=== PATIENT | female | born 1980 | race Caucasian/White ===

== ENCOUNTER → 2019-05-07 16:52 | Outpatient (CLI) | payer MEDICAID, SELFPAY ==
[2019-05-07 17:25] LABS: Basophils # 0.1 K/mm3 (0-0.2); Basophils % 0.7 % (0.1-2.0); Eosinophils # 0.2 K/mm3 (0.0-0.4); Eosinophils % 2.1 % (0.1-12.0); Hematocrit 35.5 % (37.0-47.0); Hemoglobin 10.4 g/dL (12.2-16.2); Lymphocytes # 2.2 K/mm3 (0.7-4.5); Mean Corpuscular HGB Conc 29.2 g/dL (31.8-35.4); Mean Corpuscular Volume 71.9 fl (81-99); Monocytes # 0.4 K/mm3 (0.1-1.0); Monocytes % 4.3 % (1.7-9.3); Neutrophils # 5.7 K/mm3 (1.8-7.8); Neutrophils % 66.9 % (37.0-80.0); Platelet Count 539 K/mm3 (142-424); Red Blood Count 4.94 M/mm3 (4.20-5.40); Red Cell Distribution Width 16.7 % (11.5-17.5); White Blood Count 8.5 K/mm3 (4.8-10.8)
[2019-05-07 17:58] LABS: Chloride 105 mmol/L (98-107)
[2019-05-07 17:59] LABS: Potassium 4.5 mmoL/L (3.5-5.1); Sodium 138 mmol/L (136-145)
[2019-05-07 18:01] LABS: Alanine Aminotransferase 23 U/L (12-78); Alkaline Phosphatase 99 U/L (38-126); Anion Gap 11.5 mEq/L (5-15); Aspartate Amino Transferase 33 U/L (14-36); Bilirubin,Total 0.3 mg/dl (0.2-1.3); Blood Urea Nitrogen 11 mg/dl (7-17); Carbon Dioxide 26 mmol/L (22.0-30.0); Cholesterol 118 mg/dl (140-200); Estimated Glomerular Filt Rate 112 ml/min (>60); GFR (African American) 136 ML/MIN (>60); Triglycerides 121 mg/dl (30-150); VLDL Cholesterol 24 mg/dL (0-40)
[2019-05-07 18:02] LABS: Albumin/Globulin Ratio 1.2 (1.1-1.8); Calcium 9.3 mg/dl (8.4-10.2); Chol/HDL Ratio 2.3 (1-3.5); Globulin 3.3 g/dL (1.3-3.2); Glucose 88 mg/dl (74-100); HDL Cholesterol 51 mg/dl (40-60); Total Protein,Serum 7.3 g/dl (6.3-8.2)
[2019-05-07 18:13] LABS: Direct LDL Cholesterol 47.57 mg/dL (100-129)
[2019-05-07 18:19] LABS: T4 (Thyroxine) 11.4 ug/dl (5.53-11.0)
[2019-05-07 18:33] LABS: Thyroid Stimulating Hormone < 0.02 uIU/mL (0.465-4.68)
[2019-05-10 14:29] LABS: Vitamin D 25 Hydroxy 20.5 ng/mL (30.0-100.0)
== END ==
PROVIDERS: Visit Provider Nurse Practitioner Family
DX: M79.89 Other specified soft tissue disorders (principal); M79.605 Pain in left leg; M79.604 Pain in right leg; E55.9 Vitamin D deficiency, unspecified; R94.6 Abnormal results of thyroid function studies
CPT/HCPCS: 80053; 80061; 82652; 84436; 84443; 85025

== ENCOUNTER → 2019-06-08 16:56 | Outpatient (CLI) | payer OTHER, SELFPAY ==
[2019-06-08 18:51] LABS: T4 (Thyroxine) 9.1 ug/dl (5.53-11.0)
[2019-06-08 19:04] LABS: Thyroid Stimulating Hormone 0.03 uIU/mL (0.465-4.68)
== END ==
PROVIDERS: Visit Provider Nurse Practitioner Family
DX: R79.89 Other specified abnormal findings of blood chemistry (principal)
CPT/HCPCS: 84436; 84443

== ENCOUNTER → 2019-06-18 10:15 | Outpatient (CLI) | payer OTHER, SELFPAY ==
--- NOTE | 2019-06-18 10:16 | CA_ITS ---
APPROVED REPORT EXAM: Comprehensive 2D, Doppler, and color-flow Echocardiogram Signal Operator Linguist: Rhea Samaniego CRT Ht: 5 ft 9 in Wt: 354lbs BSA: 2.63 BP: 156/97 mmHg Indications: edema,, sob, smoker, htn, 2D Dimensions LVOT 1.87 cm (M/F) 1.5-2.5 M-Mode Dimensions RVDd 3.20 cm (0.9-2.6) LVDd 6.12 cm (3.5-5.7) LVDs 4.59 cm (3.5-5.7) IVSd 0.64 cm (0.6-1.1) PWd 0.78 cm (0.6-1.1) EF (Teich) 48.60% FS 25.00% EDV (Teich) 188.30 mL ESV (Teich) 96.80 mL LV Diastology E/A Ratio 1.32 Aortic Valve LVOT Max 127.00 (70-110 cm/s) LVOT VTI 33.36 cm Mitral Valve MV A Velocity 74.00 (40-130 cm/s) Left Ventricle Left atrium is mildly enlarged, left ventricle is normal size, there is mild qualitative concentric left ventricular hypertrophy, visually estimated ejection fraction 55% with no regional wall motion abnormality, diastolic parameters are inconclusive. Right Ventricle Right atrium and right ventricular mildly enlarged with normal contractility. Aortic Valve Aortic valve is minimally thickened and fibrosed, there is no aortic stenosis, there is mild aortic insufficiency. Mitral Valve Mitral valve is grossly normal, there is mild mitral regurgitation. Tricuspid Valve Tricuspid valve is grossly normal, there is mild tricuspid regurgitation, calculated right ventricular systolic pressure is 42 mmHg. Pulmonic Valve Pulmonic valve is poorly visualized. Great Vessels Aortic root is normal size. Pericardium No significant pericardial effusion noted. Conclusion 1. Technically difficult study because of the patient fact in poor acoustic windows 2. Mild mitral enlargement, normal left ventricular size, mild concentric left ventricular hypertrophy, visually estimated ejection fraction 55% with no regional wall motion abnormality, diastolic parameters are inconclusive. 3. Mildly enlarged right ventricle with normal contractility. 4. Mild mitral and tricuspid regurgitation, calculated right ventricular systolic pressure is 42 mmHg, inferior vena cava is not well-visualized. 5. No significant pericardial effusion noted. Electronically signed by : Mario Ruiz, 06/18/2019 12:05:22
--- NOTE | 2019-06-18 11:25 | US_ITS ---
PROCEDURE: US KIDNEY CLINICAL INDICATION: Pain, edema COMPARISON: No exams were available for comparison FINDINGS: The right kidney is [id number]. No hydronephrosis, cortical thinning, or renal mass or perinephric fluid collection is evident. The left kidney is [id number]. No hydronephrosis, cortical thinning, or renal mass or perinephric fluid collection is evident. Study is somewhat limited secondary to patient's body habitus. There is mild splenomegaly at 15 cm IMPRESSION: Unremarkable bilateral renal ultrasound. Splenomegaly Dictated by: Dannie Eller MD 06/18/2019 12:40 Electronically signed by Dannie Eller MD in [place] 06/18/2019 12:40
== END ==
PROVIDERS: PCP Nurse Practitioner Family; Visit Provider Nurse Practitioner Family
DX: M79.89 Other specified soft tissue disorders (principal); R60.9 Edema, unspecified
CPT/HCPCS: 76770; 93306

== ENCOUNTER → 2019-07-09 13:20 | Outpatient (CLI) | payer OTHER, SELFPAY | PROVIDERS: PCP Nurse Practitioner Family; Visit Provider Urology | DX: G47.33 Obstructive sleep apnea (adult) (pediatric) (principal); R40.0 Somnolence; R06.83 Snoring | CPT/HCPCS: 95806 ==

== ENCOUNTER 2020-10-21 13:37 | Emergency (ER) | payer OTHER, SELFPAY ==
[2020-10-21 15:15] VITALS: BP 150/93; PULSE 83; RESP 18; TEMP 36.9; O2SAT 96; BMI 44.3
--- NOTE | 2020-10-21 15:55 | HMH.EDUTC ---
[facility] [place] Disposition Clinical Impression: Bronchitis Sinusitis Qualifiers: Sinusitis location: unspecified location Chronicity: unspecified Qualified Code(s): J32.9 - Chronic sinusitis, unspecified Disposition: Home, Self-Care Condition on Discharge: Good Instructions: Sinusitis, DI for Sinusitis, Azithromycin, DI for COVID-19 (Suspected or Confirmed ), Preventing the Spread of Coronavirus Discharge Instructions Additional Instructions: ? Start antibiotic. Be sure to complete entire prescription even if feeling better ? Monitor temp. Tylenol every 4 hours as needed and / or ibuprofen every 6 hours as needed ( As long as your primary care physician has told you that it ok to take both. For fever/aches/pains ER if no less than 101 despite Tylenol or Motrin ? Humidifier/vaporizer or hot steamy shower ? Inhaler every 4-6 hours as needed like we discussed. If unsure how to use it, ask pharmacist to demonstrate how. Should help open airways and improve cough, wheezing, and shortness of breath ?*Tessalon Perles will not cause drowsiness but use at bedtime to help stop cough so that you may get some rest. *Start steroid tomorrow. Helps with inflammation therefore, cough and wheezing. Follow directions on the package. Reviewed side effects. Patient reports taking them before. Follow up IMMEDIATELY for new or worsening of symptoms OR no noticeable improvement over the next 48-72 hours. 911 immediately for any life threatening symptoms such as chest pain or difficulty breathing You were tested for today for COVID19 your test result should be back in the next 24-48 hours, You was given written instructions for [facility] portal you can see your results there when they come back you may check it often to see if they are done You was given a handout with instructions for Self Quarantine and Self isolation for while you wait on test results and what to do if they are positive If you are positive the Health Dept will be contacting you also Make sure to take your Vitamins Vit. C Vit D and Zinc if you can take them Prescriptions: Albuterol Sulfate [Proventil-HFA 90mcg/puff Inh] 1 - 2 puffs IH Q4HP PRN #1 each PRN Reason: Shortness Of Breath Transmission Status: Received by [facility] predniSONE [Deltasone 10mg tablet] 10 mg PO BID 5 Days #10 tab Transmission Status: Received by [facility] Benzonatate [Tessalon Perle 100mg Cap*] 100 mg PO TID PRN #15 cap PRN Reason: Cough Transmission Status: Received by [facility] Azithromycin [Z-Yash 250mg Tab] 250 mg PO DIRECTED #6 tab Transmission Status: Received by [facility] Referrals: Francisco Ramírez MD [Primary Care Provider] - Forms: Work/School Release Medical Decision Making - Kenneth Inquiry Pt receiving controlled substance: No Kenneth was queried for this patient: No Vital Signs: 10/21/20 15:15 10/21/20 16:15 Temperature 98.4 F 98.4 F Temperature Source Oral Pulse Rate 83 Pulse Rate [Right Brachial] 83 Respiratory Rate 18 18 Blood Pressure 150/93 H Blood Pressure [Right Arm] 150/93 H Blood Pressure Mean [Right Arm] 112 Blood Pressure Source [Right Arm] Automatic Cuff Blood Pressure Position [Right Arm] Sitting 02 Sat by Pulse Oximetry 96 Oxygen Delivery Method Room Air Orders (Tests/Meds): ED MEDICATIONS Discontinued Medications Generic Name Dose Route Start Last Admin Trade Name Freq PRN Reason Stop Dose Admin Ceftriaxone Sodium 1 gm 10/21/20 16:02 10/21/20 16:10 Ceftriaxone 1gm Vial IM 10/21/20 16:03 1 gm ONCE ONE Administration Lidocaine HCl 0 ml 10/21/20 16:02 10/21/20 16:10 Lidocaine 1% 5ml Pf Vial IM 10/21/20 16:03 2.1 ml ONCE ONE Administration Methylprednisolone Sodium Succinate 125 mg 10/21/20 16:02 10/21/20 16:10 Methylprednisolone Sod Succ 125mg Vial IM 10/21/20 16:03 125 mg ONCE ONE Administration ORDERS Category Date Time Status Co
[2020-10-21 16:15] VITALS: BP 150/93; PULSE 83; RESP 18; TEMP 36.9; O2SAT 96
== END 2020-10-21 16:21 | disposition home or self-care (01) ==
PROVIDERS: Emergency Provider Nurse Practitioner; PCP Emergency Medicine
DX: J20.9 Acute bronchitis, unspecified (principal); J32.9 Chronic sinusitis, unspecified; Z20.822 Contact with and (suspected) exposure to COVID-19; I10 Essential (primary) hypertension; F17.210 Nicotine dependence, cigarettes, uncomplicated; Z88.5 Allergy status to narcotic agent; Z79.899 Other long term (current) drug therapy
CPT/HCPCS: 96372; 99202; G0463; U0003

== ENCOUNTER 2021-02-06 21:27 | Emergency (ER) | payer OTHER, SELFPAY ==
[2021-02-06 21:30] VITALS: BP 154/82; PULSE 98; RESP 18; TEMP 38; O2SAT 97; BMI 48.1
--- NOTE | 2021-02-06 22:00 | XR_ITS ---
PROCEDURE INFORMATION: Exam: XR Chest Exam date and time: 02/06/2021 10:00 PM Age: 40 years old Clinical indication: Cough and shortness of breath TECHNIQUE: Imaging protocol: XR of the chest. Views: 2 views. COMPARISON: CR XR CHEST 2V 05/12/2019 10:15 PM FINDINGS: Lungs: Unremarkable. No consolidation. Pleural spaces: Unremarkable. No pleural effusion. No pneumothorax. Heart/Mediastinum: Unremarkable. No cardiomegaly. Bones/joints: Unremarkable. IMPRESSION: No acute findings.
--- NOTE | 2021-02-06 22:09 | HMH.EDNVD ---
ED Disposition Clinical Impression: Acute bronchitis Qualifiers: Bronchitis organism: unspecified organism Qualified Code(s): J20.9 - Acute bronchitis, unspecified Disposition: Home, Self-Care Condition on Discharge: Good Instructions: DI for Cough -- Adult Additional Instructions: fluids and see pcp for follow up Prescriptions: Benzonatate [Benzonatate 100mg cap] 100 mg PO TID #30 cap Transmission Status: Pending to [facility] levoFLOXacin [Levaquin 500mg tab] 500 mg PO DAILY #7 tab Transmission Status: Pending to [facility] predniSONE [Prednisone 20mg Tab] 20 mg PO BID #10 tab Transmission Status: Pending to [facility] Referrals: Francisco Ramírez MD [Primary Care Provider] - - Critical Care Critical Care Time: No Attestation: On 02/06/21, the high probability of a clinically significant, sudden or life threatening deterioration of the following system(s) required my full and direct attention, intervention and personal management. The time I documented below is in addition to time spent performing reported procedures but includes the following listed in this critical care notation. Medical Decision Making - Medical Records Medical records reviewed: Yes: I reviewed the patient's medical records. - Kenneth Inquiry Pt receiving controlled substance: No Vital Signs: 02/06/21 21:30 02/06/21 22:18 Temperature 100.4 F H 98 F Temperature Source Oral Oral Pulse Rate 74 Pulse Rate [Right Brachial] 98 H Respiratory Rate 18 16 Blood Pressure 114/72 Blood Pressure [Right Arm] 154/82 H Blood Pressure Mean [Right Arm] 106 Blood Pressure Source Manual Cuff/ Doppler Blood Pressure Source [Right Arm] Manual Cuff/ Auscultation Blood Pressure Position Supine Blood Pressure Position [Right Arm] Supine 02 Sat by Pulse Oximetry 97 Oxygen Delivery Method Room Air Room Air - Lab Data Lab results reviewed: Yes: I reviewed the patient's lab results. Lab Results 02/06/21 21:45: Urine Color Yellow, Urine Appearance Clear, Urine pH 7.0, Ur Specific [place] 1.020, Urine Protein Negative, Urine Glucose (UA) Negative, Urine Ketones Negative, Urine Blood Negative, Urine Nitrate Negative, Urine Bilirubin Negative, Urine Urobilinogen 1.0, Ur Leukocyte Esterase Negative 02/06/21 21:45: WBC 6.3, RBC 5.60 H, Hgb 11.6 L, Hct 39.1, MCV 69.9 L, MCH 20.7 L, MCHC 29.7 L, RDW 16.5, Plt Count 535 H, MPV 6.9 L, Neut % (Auto) 73.1, Lymph % (Auto) 20.1, Frio % (Auto) 5.0, Eos % (Auto) 0.7, Baso % (Auto) 1.0, Neut # (Auto) 4.6, Lymph # (Auto) 1.3, Frio # (Auto) 0.3, Eos # (Auto) 0.0, Baso # (Auto) 0.1 02/06/21 21:45: Urine HCG, Qual Negative 02/06/21 21:45: Sodium 135 L, Potassium 4.0, Chloride 101, Carbon Dioxide 28, Anion Gap 10.0, BUN 8, Creatinine 0.70, Estimated Creat Clear 114, Estimated GFR 94, Est GFR ( Amer) 113, Glucose 106 H, Calcium 8.9, Total Bilirubin 0.3, AST 40 H, ALT 32, Alkaline Phosphatase 100, C-Reactive Protein 19.2 H, Total Protein 7.6, Albumin 4.2, Globulin 3.4 H, Albumin/Globulin Ratio 1.2 02/06/21 21:45: Lactate 0.7 02/06/21 21:45: SARS-CoV-2 (PCR) Not detected, Influenza A Untype (PCR) Not detected, Influenza Type B (PCR) Not detected Result diagrams: 02/06/21 21:45 02/06/21 21:45 Orders (Tests/Meds): ED MEDICATIONS Generic Name Dose Route Start Last Admin Trade Name Freq PRN Reason Stop Dose Admin Sodium Chloride 1,000 mls @ 999 mls/hr 02/06/21 22:45 02/06/21 22:39 Sod Chlor 0.9% 1000ml Bag IV 02/06/21 23:45 999 mls/hr .Q1H1M JENARO Administration Discontinued Medications Generic Name Dose Route Start Last Admin Trade Name Freq PRN Reason Stop Dose Admin Sodium Chloride 500 mls @ 999 mls/hr 02/06/21 22:00 02/06/21 23:07 Sod Chlor 0.9% 1000ml Bag IV 02/06/21 22:30 Not Given .Q31M JENARO Ketorolac Tromethamine 30 mg 02/06/21 22:44 02/06/21 22:46 Ketorolac 30mg/Ml Vial IV 02/06/21 22:45 30 mg O
[2021-02-06 22:19] LABS: Coronavirus 19, PCR Not Detected (NotDetected); Influenza A, PCR Not Detected (NotDetected); Influenza B, PCR Not Detected (NotDetected); MANUAL DIFFERENTIAL MANUAL DIFFERENTIAL (MANUAL DIFF); Microscopic, Urine URINE MICROSCOPIC (MICROSCOPIC)
[2021-02-06 22:20] LABS: Appearance,Urine CLEAR (Clear); Bilirubin,Urine Negative (Negative); Blood, Urine Negative (Negative); Color,Urine YELLOW (Yellow); Glucose,Urine (UA) Negative (Negative); Ketones,Urine Negative (Negative); Leukocyte Esterase,Urine Negative (Negative); Nitrate,Urine Negative (Negative); Protein,Urine Negative (Negative)
[2021-02-06 22:29] LABS: Basophils # 0.1 K/mm3 (0-0.2); Eosinophils % 0.7 % (0.1-12.0); Hematocrit 39.1 % (37.0-47.0); Hemoglobin 11.6 g/dL (12.2-16.2); Lymphocytes # 1.3 K/mm3 (0.7-4.5); Lymphocytes % 20.1 % (10-50); Mean Corpuscular HGB Conc 29.7 g/dL (31.8-35.4); Mean Corpuscular Hemoglobin 20.7 pg (27.0-31.2); Mean Corpuscular Volume 69.9 fl (81-99); Mean Platelet Volume 6.9 fl (7.4-10.4); Monocytes # 0.3 K/mm3 (0.1-1.0); Neutrophils # 4.6 K/mm3 (1.8-7.8); Neutrophils % 73.1 % (37.0-80.0); Platelet Count 535 K/mm3 (142-424); Red Cell Distribution Width 16.5 % (11.5-17.5); White Blood Count 6.3 K/mm3 (4.8-10.8)
[2021-02-06 22:30] LABS: Alanine Aminotransferase 32 U/L (12-78); Albumin Level 4.2 g/dl (3.5-5.0); Albumin/Globulin Ratio 1.2 (1.1-1.8); Alkaline Phosphatase 100 U/L (38-126); Aspartate Amino Transferase 40 U/L (14-36); Bilirubin,Total 0.3 mg/dl (0.2-1.3); Blood Urea Nitrogen 8 mg/dl (7-17); Calcium 8.9 mg/dl (8.4-10.2); Carbon Dioxide 28 mmol/L (22.0-30.0); Chloride 101 mmol/L (98-107); Creatinine Clearance Estimated 114 mL/min (50-200); Estimated Glomerular Filt Rate 94 ml/min (>60); GFR (African American) 113 ML/MIN (>60); Globulin 3.4 g/dL (1.3-3.2); Glucose 106 mg/dl (74-100); Lactic Acid 0.7 mmol/L (0.7-2.1); Sodium 135 mmol/L (136-145); Total Protein,Serum 7.6 g/dl (6.3-8.2)
[2021-02-06 22:35] LABS: C-Reactive Protein 19.2 mg/L (0-4); Urine Pregnancy, HCG Qual. Negative (Negative)
[2021-02-06 23:34] LABS: Bacteria,Urine Trace /lpf; Squamous Epithelial Cell,Urine Occasional #/hpf (0-5)
[2021-02-06 23:35] VITALS: BP 159/89; PULSE 74; RESP 16; TEMP 36.6; O2SAT 98
[2021-02-06 23:38] LABS: Erythrocyte Sedimentation Rate 18 mm/hr (0-20)
[2021-02-06 23:55] LABS: Eosinophils % 2 % (0-3); Lymphocytes % 20 % (10-50); Monocytes % 5 % (2-9); Neutrophils % 71 % (42-76); Total Cells Counted 100
[2021-02-06 23:56] LABS: Hypochromasia 2+; Microcytosis 2+; Platelet Estimate Normal; Stomatocytes 1+
== END 2021-02-06 23:38 | disposition home or self-care (01) ==
PROVIDERS: Emergency Provider Emergency Medicine; PCP Emergency Medicine
DX: J20.9 Acute bronchitis, unspecified (principal); I10 Essential (primary) hypertension; Z20.822 Contact with and (suspected) exposure to COVID-19; Z88.5 Allergy status to narcotic agent
CPT/HCPCS: 71046; 80053; 81001; 81025; 83605; 85007; 85014; 85018; 85048; 85049; 85651; 86140; 87040; 96365; 96372; 96375; 99282; C9803; J2405; U0003; U0005

== ENCOUNTER → 2022-01-29 15:30 | Outpatient (CLI) | payer OTHER, SELFPAY ==
[2022-01-29 17:38] LABS: Basophils # 0.1 K/mm3 (0-0.2); Basophils % 0.8 % (0.1-2.0); Eosinophils # 0.1 K/mm3 (0.0-0.4); Eosinophils % 1.5 % (0.1-12.0); Hematocrit 36.3 % (37.0-47.0); Lymphocytes # 2.2 K/mm3 (0.7-4.5); Mean Corpuscular HGB Conc 30.4 g/dL (31.8-35.4); Mean Corpuscular Hemoglobin 21.5 pg (27.0-31.2); Mean Corpuscular Volume 70.9 fl (81-99); Mean Platelet Volume 7.8 fl (7.4-10.4); Monocytes # 0.4 K/mm3 (0.1-1.0); Monocytes % 4.8 % (1.7-9.3); Neutrophils % 67.9 % (37.0-80.0); Platelet Count 541 K/mm3 (142-424); Red Blood Count 5.12 M/mm3 (4.20-5.40); White Blood Count 8.9 K/mm3 (4.8-10.8)
[2022-01-29 17:48] LABS: Alanine Aminotransferase 31 U/L (12-78); Albumin/Globulin Ratio 1.3 (1.1-1.8); Alkaline Phosphatase 119 U/L (38-126); Anion Gap 13.8 mEq/L (5-15); Aspartate Amino Transferase 34 U/L (14-36); Bilirubin,Total 0.3 mg/dl (0.2-1.3); Blood Urea Nitrogen 16 mg/dl (7-17); Calcium 9.4 mg/dl (8.4-10.2); Carbon Dioxide 26 mmol/L (22.0-30.0); Chloride 104 mmol/L (98-107); Chol/HDL Ratio 3.1 (1-3.5); Cholesterol 152 mg/dl (140-200); Estimated Glomerular Filt Rate 80 ml/min (>60); GFR (African American) 97 ML/MIN (>60); Globulin 3.2 g/dL (1.3-3.2); Glucose 99 mg/dl (74-100); HDL Cholesterol 49 mg/dl (40-60); Potassium 4.8 mmoL/L (3.5-5.1); Sodium 139 mmol/L (136-145); Total Protein,Serum 7.2 g/dl (6.3-8.2); Triglycerides 87 mg/dl (30-150); VLDL Cholesterol 17 mg/dL (0-40)
[2022-01-29 18:04] LABS: Free T4 (Free Thyroxine) 1.25 ng/dl (0.78-2.19)
[2022-01-29 18:07] LABS: 25-OH Vitamin D, Total 15.8 ng/mL (30-100)
[2022-01-29 18:19] LABS: Thyroid Stimulating Hormone 0.46 uIU/mL (0.465-4.68)
== END ==
PROVIDERS: PCP Emergency Medicine; Visit Provider Emergency Medicine
DX: R06.00 Dyspnea, unspecified (principal); E55.9 Vitamin D deficiency, unspecified; Z79.899 Other long term (current) drug therapy
CPT/HCPCS: 80053; 80061; 82306; 84439; 84443; 85025

== ENCOUNTER 2023-12-31 14:23 | Outpatient (CLI) | payer OTHER, SELFPAY ==
[2023-12-31 18:56] LABS: Basophils # 0.1 K/mm3 (0-0.2); Basophils % 0.8 % (0.1-2.0); Eosinophils # 0.1 K/mm3 (0.0-0.4); Hematocrit 36.3 % (37.0-47.0); Hemoglobin 11.2 g/dL (12.2-16.2); Lymphocytes # 2.1 K/mm3 (0.7-4.5); Lymphocytes % 23.7 % (10-50); Mean Corpuscular HGB Conc 30.8 g/dL (31.8-35.4); Mean Corpuscular Hemoglobin 22.2 pg (27.0-31.2); Mean Platelet Volume 7.5 fl (7.4-10.4); Monocytes # 0.5 K/mm3 (0.1-1.0); Monocytes % 5.8 % (1.7-9.3); Neutrophils # 6.1 K/mm3 (1.8-7.8); Neutrophils % 68.7 % (37.0-80.0); Platelet Count 530 K/mm3 (142-424); Red Blood Count 5.04 M/mm3 (4.20-5.40); Red Cell Distribution Width 17.9 % (11.5-17.5); White Blood Count 8.9 K/mm3 (4.8-10.8)
[2023-12-31 19:15] LABS: Alanine Aminotransferase 17 U/L (12-78); Albumin Level 4.2 g/dl (3.5-5.0); Albumin/Globulin Ratio 1.3 (1.1-1.8); Alkaline Phosphatase 111 U/L (38-126); Anion Gap 12.7 mEq/L (5-15); Aspartate Amino Transferase 26 U/L (14-36); Bilirubin,Total 0.6 mg/dl (0.2-1.3); Blood Urea Nitrogen 14 mg/dl (7-17); Calcium 9.2 mg/dl (8.4-10.2); Carbon Dioxide 28 mmol/L (22.0-30.0); Chloride 104 mmol/L (98-107); Chol/HDL Ratio 1.7 (1-3.5); Cholesterol 124 mg/dl (140-200); Estimated Glomerular Filt Rate 92 ml/min (>60); GFR (African American) 112 ML/MIN (>60); Globulin 3.3 g/dL (1.3-3.2); Glucose 87 mg/dl (74-100); HDL Cholesterol 71 mg/dl (40-60); Potassium 4.7 mmoL/L (3.5-5.1); Sodium 140 mmol/L (136-145); Total Protein,Serum 7.5 g/dl (6.3-8.2); Triglycerides 66 mg/dl (30-150); VLDL Cholesterol 13 mg/dL (0-40)
[2023-12-31 19:26] LABS: Direct LDL Cholesterol 47.35 mg/dL (100-129)
[2023-12-31 19:31] LABS: 25-OH Vitamin D, Total 19.2 ng/mL (30-100)
[2023-12-31 19:40] LABS: HIV (1&2) Antibody Rapid NONREACTIVE (NONREACTIVE)
[2023-12-31 19:43] LABS: Hemoglobin A1C 5.5 % (4.0-6.0)
[2023-12-31 19:47] LABS: Thyroid Stimulating Hormone 2.42 uIU/mL (0.465-4.68)
[2024-01-02 07:24] LABS: Hepatitis B Surface Antigen Negative (Negative)
[2024-01-05 14:12] LABS: HCV Ab Reactive (Non Reactive)
== END 2023-12-31 23:59 | disposition home or self-care (01) ==
LOC: LAB.DROPOF 01-01 15:50
PROVIDERS: PCP Nurse Practitioner Family; Visit Provider Nurse Practitioner Family
DX: K52.9 Noninfective gastroenteritis and colitis, unspecified (principal); E66.9 Obesity, unspecified; I10 Essential (primary) hypertension; Z11.59 Encounter for screening for other viral diseases; R07.9 Chest pain, unspecified; R06.02 Shortness of breath; R60.9 Edema, unspecified
CPT/HCPCS: 80050; 80053; 80061; 82306; 83036; 84443; 85025; 86803; 87340; 87389

== ENCOUNTER 2024-02-12 14:30 | Outpatient (CLI) | payer OTHER, SELFPAY ==
--- NOTE | 2024-02-12 14:32 | CA_ITS ---
APPROVED REPORT EXAM: Comprehensive 2D, Doppler, and color-flow Echocardiogram Spray Maker: YUSUF Manning, RVS Ht: 5 ft 9 in Wt: 365lbs BSA: 2.67 BP: 156/110 mmHg Rhythm: Irregular Indications: Murmur, SOA, Smoker, SOA, HTN, Edema Echo Enhancing Agent Comments: TDS: limited acoustic windows due to patient factors 2D Dimensions IVSd 1.07 cm LVEF (Visual) 43.90 % PWd 1.08 cm LA Volume 86.00 mL LVDd 5.51 cm LA Volume Index 31.50 mL/m2 (M/F) 16-34 LVDs 4.45 cm Left Atrium 3.70 cm M-Mode Dimensions LA Diam 4.26 cm (1.9-4.0) LVDd 7.08 cm (3.5-5.7) LVDs 5.33 cm (3.5-5.7) EF (Teich) 47.70% EPSs 0.99 cm FS 24.70% EDV (Teich) 262.10 mL TAPSE 2.87 (<1.7) ESV (Teich) 137.10 mL LV Diastology E Decel Time 230 (160-240 msec) E/A Ratio 1.17 MED A' 8.70 cm/s LAT A' 11.10 cm/s Aortic Valve ALYCIA Index 0.56 cm2/m2 AoV Peak Gus. 243.0 (50-130 cm/s) AI PHT 504.00 ms AO Peak GR. 24.00 mmHg AO Mean GR. 13.10 (<5 mmHg) AO VTI 50.7 (18-25 cm) ALYCIA (VTI) 1.54 (2.5-4.5 cm2) Mitral Valve MV A Velocity 97.0 (40-130 cm/s) E/A Ratio 1.17 Pulmonary Valve PV Peak Velocity 101.0 (50-150 cm/s) Tricuspid Valve TR P. Velocity 308.00 cm/s RAP Estimate 10.00 mmHg RVSP 48.00 mmHg Left Ventricle Left ventricle is severely dilated. Left ventricular systolic function is mild to moderately decreased. There is normal left ventricular wall thickness. There is mild to moderate global hypokinesis present. Grade 2 diastolic dysfunction is present. LVEF is 40%. Right Ventricle Right ventricle is mildly dilated. The right ventricular systolic function is normal. Atria Left atrium is mildly dilated. The right atrium size is normal. There is no Doppler evidence of interatrial shunt. Aortic Valve The aortic valve is mildly thickened, cannot rule out bicuspid aortic valve. Mild aortic stenosis is present. Peak velocity 2.3 m/s. Mean AV gradient 13 mmHg. Max AV gradient 24 mmHg. ALYCIA by continuity equation is 1.6 cm2. Mild aortic regurgitation. Mitral Valve The mitral valve is normal in structure. No evidence of mitral valve stenosis. Mild mitral regurgitation. Tricuspid Valve Tricuspid valve is grossly normal in structure and function. Moderate tricuspid regurgitation. RVSP is 40-45 mmHg. Pulmonic Valve The pulmonary valve is normal in structure. Mild pulmonic regurgitation. Great Vessels The aortic root is normal in size. The ascending aorta is not well visualized. IVC is normal in size and collapses >50% with inspiration. Pericardium There is no pericardial effusion. Other Information Study Quality: Fair Conclusion Severely dilated LV with mild to moderate reduction in LV systolic function (LVEF 40%). Grade 2 diastolic dysfunction. Mild RV dilation with normal RV function. Biatrial dilation. Mild (possibly bicuspid AV) -Peak velocity 2.3 m/s. Mean AV gradient 13 mmHg. Max AV gradient 24 mmHg. ALYCIA by continuity equation is 1.6 cm2. Moderate TR. Mild MR, mild PI, mild AI. Elevated RVSP 40-45 mmHg. Compared to prior TTE from 2019, the reduction in LVEF and elevated AV gradients are new. Further evaluation with cardiac MRI (cardiomyopathy + AV protocol) and ischemic work-up are recommended, if clinically feasible. Electronically signed by : Janay Fisher MD 02/13/2024 12:25:49
== END 2024-02-12 23:59 | disposition home or self-care (01) ==
LOC: RT 14:31
PROVIDERS: PCP Nurse Practitioner Family; Visit Provider Nurse Practitioner Family
DX: I51.7 Cardiomegaly (principal); I34.0 Nonrheumatic mitral (valve) insufficiency; I35.1 Nonrheumatic aortic (valve) insufficiency; I36.1 Nonrheumatic tricuspid (valve) insufficiency; I37.1 Nonrheumatic pulmonary valve insufficiency; R06.02 Shortness of breath; R07.9 Chest pain, unspecified
CPT/HCPCS: 93306

== ENCOUNTER 2024-03-04 09:53 | Outpatient (CLI) | payer OTHER, SELFPAY ==
--- NOTE | 2024-03-04 09:53 | MR_ITS ---
APPROVED REPORT Set Up Mechanic: CLINICAL INDICATION HFrEF, possible aortic stenosis on TTE TECHNIQUE Image Acquisition: Cardiac magnetic resonance (CMR) was performed on Siemens Espree MRI 1.5T scanner. Software platform sequences were performed using the Siemens [employer] MR B19 platform. A set of three-plane, low-resolution, large [id number] localizers were initially acquired. Then axial, coronal, sagittal TrueFISP, as well as axial HASTE images, were obtained. These were followed by gated TrueFISP breathold cinematic sequences obtained in the short axis with 8 mm slices and 2 mm gaps, 2-chamber (vertical long axis), 3-chamber, 4-chamber (horizontal long axis). A bolus of contrast was injected intravenously with first-pass sequences obtained in the short axis and four-chamber planes. After approximately 10 minutes, a TI braid folder sequence was performed to determine the optimal TI time. Using the optimized TI time, delayed contrast enhancement segmented inversion???recovery TurboFLASH sequences were obtained in the short axis, 2-chamber, 3-chamber, and 4-chamber projections. 2D-velocity phase mapping was performed. Functional parameters were calculated by offline analysis on an independent workstation ([employer], [employer]unch). Contrast: ProHance??? (Gadoteridol) FINDINGS MORPHOLOGY AND FUNCTION Left ventricle: The left ventricle is severely dilated. The indexed left ventricular end-diastolic volume (LVEDVi) is 112 ml/m2 (reference range 57-105 ml/m2 in males, 56-96 ml/m2 in females). There is moderate reduction in global left ventricular systolic function. There is normal left ventricular wall thickness. The septum is asynchronous. LVEF is calculated at 37.3% (reference range 57-77%). Right ventricle: The right ventricle is mildly dilated. The indexed right ventricular end-diastolic volume (RVEDVi) is 102 ml/m2 (reference range 61-121 ml/m2 in males, 48-112 ml/m2 in females). There is severe reduction in right ventricular systolic function. RVEF is calculated at 23.5% (reference range 52-72% in males, 51-71% in females). Atria: The left atrium is mildly dilated. The maximum indexed left atrial volume is 42 ml/m2 (reference range 26-52 ml/m2 in males, 27-53 ml/m2 in females). The right atrium is normal in size. The maximum indexed right atrial volume is 29 ml/m2 (reference range 18-90 ml/m2). Aorta: The diameter of the aortic annulus is normal, measuring 28 mm (coronal view reference range 21-30 mm in males, 19-27 mm in females). The diameter of the aortic sinus is normal, measuring 34 mm (coronal view reference range 25-42 mm in males, 24-36 mm in females). The diameter of the sinotubular junction is normal, measuring 28 mm (coronal view reference range 18-32 mm in males, 18-28 mm in females). The diameters of the ascending and descending thoracic aorta are normal. Main pulmonary artery: The main pulmonary artery is mildly dilated, measuring 3.1 cm in diameter. Pericardium: The pericardial thickness is normal. The pericardial thickness measures 1 mm (normal < 4.0 mm). There is no pericardial effusion. VALVES The aortic valve is trileaflet. ALYCIA by 2D planimetry is > 2.5 cm2, corresponding to no anatomic evidence of aortic stenosis. Mild aortic regurgitation is present. Mild mitral regurgitation and tricuspid regurgitation are present. Systolic anterior motion of the mitral valve is not visualized. Ratio of pulmonary to systemic flow, Qp:Qs ratio = 0.9 (normal < or = 1.2, hemodynamically significant shunt > 1.5), demonstrating no evidence of hemodynamically significant shunt. TISSUE CHARACTERIZATION Resting Perfusion: Normal myocardial blood flow at rest. No evidence of resting hypoperfusion. Myocardial Fibrosis and/or edema: Normal gadolinium kinetics are present. No evidence of late gadolinium enhancement is noted, consistent with absence of myocardial scarring, infarction, or necrosis. T2-weighted imaging demonstrates no evidence of myocardial edema or inflammation. OTHER No other significant findings are noted. However, this exam is focused on the cardiac structure and function. IMPRESSION Severely dilated LV with moderate reduction in LV systolic function. LVEDVi= 112 ml/m2 and LVEF= 37.3%. Normal RV size with normal RV systolic function. RVEDVi= 102 ml/m2 and RVEF= 23.5%. LA dilation. No CMR evidence of myocardial scarring, infarction, or necrosis. No evidence of myocardial edema or inflammation. Perfusion analysis demonstrates normal blood flow at rest with no evidence of resting hypoperfusion. The aortic valve is trileaflet. ALYCIA by 2D planimetry is > 2.5 cm2, corresponding to no anatomic evidence of aortic stenosis. Mild aortic regurgitation is present. Mild mitral regurgitation and tricuspid regurgitation are present. Mild pulmonary artery dilation. Ratio of pulmonary to systemic flow, Qp:Qs ratio = 0.9 (normal < or = 1.2, hemodynamically significant shunt > 1.5), demonstrating no evidence of hemodynamically significant shunt. Overall, this CMR demonstrates reduction in biventricular systolic function, with otherwise no evidence of significant valvular disease (no hemodynamically significant aortic stenosis). No LGE evidence of infiltrative cardiomyopathy. There is no evidence of resting hypoperfusion or evidence of infarct in the study, but further evaluation for ischemia with stress imaging is recommended to conclusively rule out ischemic cardiomyopathy. If no evidence of coronary disease, the combination of biventricular ventricular dilation and moderate/severe dysfunction likely correlate with non-ischemic dilated cardiomyopathy. Evaluation for etiologies of dilated cardiomyopathy is suggested. COMPARISON None CRITICAL RESULT None COMMUNICATION Per this written report The findings of this cardiac MR were reviewed, reported, and signed by Wilman Fisher MD (Manager Of Customer Billing). Conclusion Electronically signed by : Janay Fisher MD 03/11/2024 11:14:41
[2024-03-04 10:20] LABS: Blood Urea Nitrogen 13 mg/dl (7-17); Estimated Glomerular Filt Rate 79 ml/min (>60); GFR (African American) 96 ML/MIN (>60)
[2024-03-04] MEDS: SODIUM CHLORIDE 0.9% 50ML BAG 25 ML IV (12:51)
[2024-03-04] MEDS: SODIUM CHLORIDE 0.9% 10ML SYR (RAD ONLY) 10 ML IV (12:51)
[2024-03-04] MEDS: GADOTERIDOL INJ 20ML SYRINGE 20 ML IV (12:52)
[2024-03-04] MEDS: GADOTERIDOL INJ 10ML SYRINGE 10 ML IV (12:52)
== END 2024-03-04 23:59 | disposition home or self-care (01) ==
LOC: RAD 09:53
PROVIDERS: PCP Nurse Practitioner Family; Visit Provider Nurse Practitioner Family
DX: R06.02 Shortness of breath (principal); I42.8 Other cardiomyopathies; Q23.81 Bicuspid aortic valve
CPT/HCPCS: 36415; 75561; 82565; 84520; A9576

== ENCOUNTER 2024-03-23 12:13 | Outpatient (CLI) | payer OTHER, SELFPAY ==
--- NOTE | 2024-03-23 | CA_ITS ---
APPROVED REPORT Exam: Pharmacologic Technologist: Cherise Marcus Ht: 5 ft 9 in Wt: 344 lbs BSA: 2.60 m2 HR: 77 bpm BP: 172/104 mmHg Stress Test Details Test: Lexiscan HR Resting HR: 77 bpm Max Heart Rate (APMHR): 179.249776 bpm Max HR Achieved: 100 bpm Target HR (85% APMHR): 152.494576 bpm % of APMHR: 55.87 Recovery HR: 83 bpm BP Resting BP: 172.0/104.0 mmHg Max BP: 172.0/104.0 mmHg Recovery BP: 159.0/93.0 mmHg ECG Resting ECG: Sinus rhythm with PVC Stress ECG Conclusion Symptoms: Dyspnea, Chest pressure Arrhythmias/Ectopy: Frequent PVC, PAC ST-T Changes: Less than [address] depression Conclusion: EKG portion unremarkable due to Lexiscan infusion. Blood pressure elevated prior to exam. Follow up with PCP Electronically signed by : Janay Fisher MD 03/24/2024 11:11:03
--- NOTE | 2024-03-23 12:14 | NM_ITS ---
APPROVED REPORT Exam: Nuclear Stress Test Indication: soa Patient Location: Outpatient Stress Tech: Cherise Marcus NM Tech:Suzanne Conn, PAOLAT, RT (R)(N) Ht: 5 ft 9 in Wt: 363 lbs HR: 78 bpm BP: 172/104 mmHg BSA: 2.66 m2 TID: 1.04 BMI: 53.5 History: soa Procedure: Patient received 0.4 mg of intravenous Lexiscan, resting heart rate 78 bpm, resting blood pressure 172/104 mmHg, with Lexiscan maximum heart rate achieved was 95 bpm which is 85 % of the maximum predicted heart rate and blood pressure was 152/86 mmHg. With Lexiscan, patient denied any complaint of chest pain. The patient was not able to lay on her abdomen for prone images Cardiac Stress and Resting SPECT Images: Cardiac Stress and Resting SPECT images were obtained using technetium 99m Myoview 31.5 mCi stress and 10.55 mCi at rest. Technically difficult imaging due to significant soft tissue overlap with the cardiac borders. The patient could not lie on her abdomen. Therefore, prone stress imaging could not be performed. This may affect the diagnostic of the study findings. Resting and stress imaging in supine positions demonstrate a large sized, moderate, fixed perfusion defect in the inferior LV wall. There is also a medium sized, moderate predominantly fixed perfusion defect in the basal to mid anterior LV wall, as well as a medium sized, moderate reversible perfusion defect in the basal to mid lateral LV wall. Gated imaging demonstrates moderate to severe reduction global LV systolic function. There is severe hypokinesis of the inferior, anterior, and basal lateral LV mai. LVEF is calculated at 30%. Conclusion: Technically difficult imaging due to soft tissue overlap and and availability of prone imaging. This may affect the diagnostic of the study findings. Large sized, moderate, fixed perfusion defect in the inferior LV wall. There is also a medium sized, moderate predominantly fixed perfusion defect in the basal to mid anterior LV wall, as well as a medium sized, moderate reversible perfusion defect in the basal to mid lateral LV wall. Findings are suggestive of reversible ischemia. Gated imaging demonstrates moderate to severe reduction global LV systolic function. There is severe hypokinesis of the inferior, anterior, and basal lateral LV mai. LVEF is calculated at 30%. Electronically signed by : Janay Fisher MD 03/24/2024 11:08:56
[2024-03-23] MEDS: ISOTOPE MYOVIEW (PER STUDY) 1 DOSE IV (14:05)
[2024-03-23] MEDS: SODIUM CHLORIDE 0.9% 10ML SYR (RAD ONLY) 10 ML IV ×2 (14:05)
[2024-03-23] MEDS: REGADENOSON 0.4MG/5ML SYRINGE 0.4 MG IV (14:05)
== END 2024-03-23 23:59 | disposition home or self-care (01) ==
LOC: RAD 12:14
PROVIDERS: PCP Nurse Practitioner Family; Visit Provider Nurse Practitioner Family
DX: R06.02 Shortness of breath (principal); I42.8 Other cardiomyopathies; R07.9 Chest pain, unspecified
CPT/HCPCS: 78452; 93017; 93018; A9502; J2785

== ENCOUNTER 2024-09-05 21:18 | Inpatient (IN) | payer OTHER, SELFPAY ==
--- OUTSIDE RECORDS SUMMARY | 2024-05-22 17:30 | XMS_ITS ---
Author Organization [facility] Address [address] [place] [address] Care Team Providers Care Furnace Erector Name Role Phone Jyotsna Stevens Primary Care Provider JYOTSNA STEVENS Unavailable Unavaila ble Migration, Provider Unavailable Unavailable Allergies Allergen (clinical drug ingredient) Drug/Non Drug Allergy documented on EMR Reaction Allergy Type Onset Date Status codeine Codeine hives Drug Allergy Active REASON FOR VISIT [facility] To [facility] Conversion Encounter Medications Medication SIG (Take, Route, Frequency, Duration) Notes Start Date End Date Status Ferrous Sulfate 325 (65 Fe) MG 1 tab(s) orally once a day Active buPROPion HCl ER (SR) 150 MG 1 tab(s) or ally once a day (in the morning); Duration: 30 days 07/30/2022 Active Spironolactone 50 MG 1 tab(s) orally onc e a day; Duration: 30 days 08/26/2022 Active metFORMIN HCl 500 MG 1 tab(s) orally onc e a day; Duration: 30 days 08/26/2022 Active Furosemide 20 MG 1 tab(s) orally once a day; Duration: 30 days 03/10/2023 Active Encounters Encounter Location Date Provider Diagnosis [facility] [address] [place], [place] [address] 05/22/2024 Provider Migration Plan Of Treatment No Information Progress Notes * Lian PAINTINGDOB: 3 (44 yo F)Acc No.[id number]:05/22/2024 Patient: Lian STRONG Provider: Rodo zhao Arleth :1980 A ge:44 Y S ex:Female Date:05/22/2024 Address:[address] [place] [address], [place], [id number] Pcp:Jyotsna Stevens Subjective: * Chief Complaints: * 1 . [facility] Conversion Encounter. * Medical History: * Medications: T aking Ferrous Sulfate 325 (65 Fe) MG Tablet Delayed Release 1 tab(s) orally once a day , Taking buPROPion HCl ER (SR) 150 MG Tablet Extended Release 12 Hour 1 tab(s) orally once a day (in the morning) , Taking Spironolactone 50 MG Tablet 1 tab(s) orally once a day , Taking metFORMIN HCl 500 MG Tablet 1 tab(s) orally once a day , Taking Furosemide 20 MG Tablet 1 tab(s) orally once a day * Allergies: C odeine: hives - Allergy. Objective: * Vitals: Assessment: Plan: * Treatment: * * Electronic signature of Perry moss Migration on 09/06/2024 at 04:16 PM EDT Sign off status: Pending * Provider: Rodo hernandezada Reinoso Date: 05/22/2024 Generated for Thu burnett/Naveen/Brian on: 09/06/2024 04:16 PM EDT
--- OUTSIDE RECORDS SUMMARY | 2024-05-22 17:30 | XMS_ITS ---
Author Organization [facility] Address [address] [place] [address] Care Team Providers Care Investigator Internal Affairs Name Role Phone Jyotsna Stevens Primary Care Provider JYOTSNA STEVENS Unavailable Unavaila ble Migration, Provider Unavailable Unavailable Allergies Allergen (clinical drug ingredient) Drug/Non Drug Allergy documented on EMR Reaction Allergy Type Onset Date Status codeine Codeine hives Drug Allergy Active REASON FOR VISIT [facility] Conversion Encounter Medications Medication SIG (Take, Route, [address] [place], [place] [address] 05/22/2024 Provider Migration Plan Of Treatment No Information Progress Notes * Lian PAINTINGDOB: 3 (44 yo F)Acc No.[id number]:05/22/2024 Patient: Lian STRONG Provider: Rodo zhao Arleth :1980 A ge:44 Y S ex:Female Date:05/22/2024 Address:[address] [place] [address], [place], [id number] Pcp:Jyotsna Stevens Subjective: * Chief Complaints: * [...] Electronic signature of Perry moss Migration on 09/05/2024 at 09:27 PM EDT Sign off status: Pending * Provider: Rodo hernandezada Reinoso Date: 0 05/22/2024 Generated for Thu burnett/Naveen/Brian on: 09/05/2024 09:27 PM EDT
--- NOTE | 2024-09-05 21:18 | XR_ITS ---
PROCEDURE INFORMATION: Exam: XR Chest Exam date and time: 09/05/2024 9:24 PM Age: 44 years old Clinical indication: Shortness of breath; Additional info: Cough SOA TECHNIQUE: Imaging protocol: Radiologic exam of the chest. Views: 1 view. COMPARISON: CR XR CHEST 2V 02/06/2021 10:04 PM FINDINGS: Lungs: Diffuse interstitial prominence is noted. Pleural spaces: Small pleural effusions not be excluded. Heart/Mediastinum: The heart is enlarged. Vasculature: The central pulmonary vasculature is indistinct. Bones/joints: Unremarkable. IMPRESSION: 1. Diffuse interstitial prominence may represent pulmonary edema related to CHF or atypical pneumonia. 2. Cardiomegaly. 3. Small effusions can not be excluded.
[2024-09-05] MEDS: IPRATROPIUM/ALBUTEROL 3 ML NEB 9 ML IH (21:20)
--- NOTE | 2024-09-05 21:20 | ED_ITS ---
Discharge Plan Disposition Chief Complaint: Shortness of Breath/Dyspnea Prescriptions Prescriptions: No Action lisinopril 10 mg tablet 10 mg PO DAILY Qty: 30 2RF hydrochlorothiazide 25 mg tablet 25 mg PO DAILY Qty: 30 2RF fluticasone furoate-vilanterol [Breo Ellipta] 100-25 mcg/dose blister with device 1 inh inhalation DAILY Qty: 60 3RF cholecalciferol (vitamin D3) 1,250 mcg (50,000 unit) capsule 1,250 mcg PO QWEEK Qty: 7 3RF cholecalciferol (vitamin D3) 50 mcg (2,000 unit) capsule 50 mcg PO DAILY Qty: 30 4RF ferrous fumarate 324 mg (106 mg iron) tablet See Rx Instructions .ROUTE .COMPLEX Qty: 90 0RF Dose Instruction: TAKE ONE TABLET BY MOUTH ONCE A DAY Rx Instructions: TAKE ONE TABLET BY MOUTH ONCE A DAY albuterol sulfate 90 mcg/actuation HFA aerosol inhaler See Rx Instructions .ROUTE .COMPLEX Qty: 8.5 3RF Dose Instruction: INHALE 2 PUFFS BY MOUTH EVERY 4 TO 6 HOURS NEEDED FOR SHORTNESS OF BREATH OR WHEEZING Rx Instructions: INHALE 2 PUFFS BY MOUTH EVERY 4 TO 6 HOURS NEEDED FOR SHORTNESS OF BREATH OR WHEEZING Referrals Follow up/Referrals: Jt De La Garza DO [Primary Care Provider, Internal Medicine] - See instructions Print Language Print Language: Greek Discharge ED Provider: Aditya Mora General Chief Complaint: Shortness of Breath/Dyspnea Stated Complaint: SOA Time Seen by Provider: 09/05/24 21:20 History of Present Illness HPI narrative: Patient is a 44-year-old female with past medical history of hypertension, asthma, chronic smoker, methamphetamine use who presents emergency department for evaluation of cough and shortness of breath. Onset was acute, over the last 3 days. She smoked a pack a day until 3 days ago when she developed a cough and shortness of breath generally feeling unwell. Upon EMS arrival she was saturating 86% which went up to the mid 90s on nonrebreather. Patient was given an albuterol treatment prior to arrival. She denies chest pain. No other interventions prehospital. No other acute complaints at this time. Please note that above description of symptoms, in this electronic medical record under categorization of recalled from ER triage doctor by RN are reflective of an initial nursing assessment, however, is not reflective of my full history and physical exam that was personally taken and clarified. Consequentially, this preceding description of symptoms, which may include the patient's categorized chief complaint in the EMR, do not reflect my personal clinical impression, and the ultimate description of history of present illness and patient stated complaints should be deferred to this section of the note. Unless stated otherwise or congruent with this section of the note, additional signs, symptoms, or incongruence should be interpreted as inaccurate with my clinical impression. Related Data Previous Rx's ?Medication ?Instructions ?Recorded cholecalciferol (vitamin D3) 1,250 1,250 mcg PO QWEEK #7 caps 01/06/24 mcg (50,000 unit) capsule cholecalciferol (vitamin D3) 50 50 mcg PO DAILY #30 ca ps 01/06/24 mcg (2,000 unit) capsule fluticasone furoate 100 1 inh inhalation DAILY #60 e a 04/20/24 mcg-vilanterol 25 mcg/dose inhalation powder (Breo Ellipta) hydrochlorothiazide 25 mg tablet 25 mg PO DAILY #30 ta bs 04/20/24 ferrous fumarate 324 mg (106 mg See Rx Instructions .R oute 05/28/24 iron) tablet .COMPLEX #90 tabs lisinopril 10 mg tablet 10 mg PO DAILY #30 tabs 06/11 albuterol sulfate 90 mcg/actuation See Rx Instructions .Route 07/29/24 aerosol inhaler .COMPLEX #8.5 grams Allergies Allergy/AdvReac Type Severity Reaction Status Date / Time codeine (CODEINE) Allergy Mild I-RASH Verified 07/21/24 13:14 [facility] Disclaimer: The information contained in this section may have been updated after the patient was seen, as this information can be updated by other users. Medical History Restless sleeper Daytime somnolence Snoring HTN (hypertension) History of asthma Edema Tobacco dependence syndrome Dyspnea Surgical History History of placement of ear tubes History of 2 sections History of tonsillectomy and adenoidectomy Social History (Updated 07/21/24 @ 13:26 by Yuly Dunham MA) Smoking Status: Current every day smoker tobacco type: cigarettes packs per day: 1 how long ago did patient quit smoking: one month second hand exposure: No alcohol intake: current alcohol intake frequency: holidays/special occasions only substance use type: denies use current occupational status: employed Travel in the last 8 weeks?: None housing: house caffeine: No Have you lived/traveled outside US in past 30 days?: No Contact w/someone who lives/traveled outside US past 30 days?: No Exposure to someone with infectious disease in past 14 days?: No Do you have a fever (greater than 100.4 F or 38 C)?: No Have you tested positive for COVID-19?: No Exposed to someone with COVID-19 in past 14 days?: No Do you have a sore throat?: No Do you have a cough?: No Do you have any weakness?: No Do you have any diarrhea?: No Are you experiencing any unusual bleeding?: No Do you have any muscle aches/pain?: No Do you have any abdominal pain?: No Are you experiencing loss of taste or smell?: No Other Medical History Have you received the Flu Vaccine for this season: No Have you received the Pneumonia Vaccine: No ROS Obtained: Yes Systems reviewed as appropriate & no additional complaints except as documented Physical Exam General General appearance: alert and in no apparent distress Head Head exam: atraumatic and normocephalic Eye Eye exam: Present PERRL and EOMI ENT ENT exam: Present mucous membranes moist Neck Neck exam: Present normal inspection Chest Chest inspection: Present normal inspection and symmetric chest wall rise Respiratory Respiratory exam: Present respiratory distress, wheezes and other (Tachypnea, diminished air movement on the left) Cardiovascular Cardiovascular exam: Present regular rate and normal rhythm Abdominal Exam Abdominal exam: Present soft; Absent tenderness Extremities Exam Extremities exam: Present normal inspection Neurological Exam Neurological exam: Present alert Psychiatric Psychiatric exam: Present normal affect Skin Skin exam: Present warm and dry HEART Score HEART Score HEART Score assessment performed?: Yes History (anamnesis): Slightly suspicious ECG: Non-specific disturbance Age: <45 years Risk factors: 1-2 risk factors Troponin: > 3x normal limit HEART Score: 4 Critical Care Critical Care Time Critical Care Time: Yes Attestation: On 09/05/24, the high probability of a clinically significant, sudden or life threatening deterioration of the following system(s) required my full and direct attention, intervention and personal management. The time I documented below is in addition to time spent performing reported procedures but includes the following listed in this critical care notation. Total Time Total Critical Care Time: 45 Medical Decision Making Kenneth Inquiry Pt receiving controlled substance: No Vital Signs Vital Signs: 09/05/24 21:29 09/05/24 22:30 09/05/24 22:31 Temperature 101.8 F H Temperature Source Tympanic Pulse Rate 119 H Pulse Rate [Right] 119 H Respiratory Rate 39 H Blood Pressure [Right Arm] 169/104 H Blood Pressure Mean [Right Arm] 125 02 Sat by Pulse Oximetry 91 L Oxygen Delivery Method Vapotherm Oxygen Flow Rate (LPM) 30 Fraction of Inspired Oxygen 100 Lab Data Labs: Lab Results 09/05/24 21:18: VBG pH 7.41, VBG pCO2 33.6 L, VBG pO2 36.1, VBG HCO3 20.7 L, VBG Total CO2 21.8 L, VBG O2 Saturation 65.2, VBG Base Excess -3.9 L, VBG Lactic Acid 3.3 H 09/05/24 21:19: WBC 32.4 H*, RBC 5.52 H, Hgb 10.6 L, Hct 37.7, MCV 68.3 L, MCH 19.2 L, MCHC 28.1 L, RDW 18.5 H, Plt Count 562 H, MPV 10.6 H, Neut % (Auto) 92.5 H, Lymph % (Auto) 2.8 L, [place] % (Auto) 3.2, Eos % (Auto) 0.0 L, Baso % (Auto) 0.2, Neut # (Auto) 30.0 H, Lymph # (Auto) 0.9, [place] # (Auto) 1.1 H, Eos # (Auto) 0.0, Baso # (Auto) 0.1, Total Counted 100, Neutrophils % (Manual) 90 H, L ymphocytes % (Manual) 8 L, Monocytes % (Manual) 2, Platelet Estimate Normal, RBC Morphology Normal, Sodium 129 L, Potassium 4.4, Chloride 98, Carbon Dioxide 22, Anion Gap 13.4, BUN 15, Creatinine 0.90, Estimated Creat Clear 85, Estimated GFR 69, Est GFR ( Amer) 83, Glucose 158 H, Calcium 8.9, Total Bilirubin 2.4 H , AST 123 H, ALT 86 H, Alkaline Phosphatase 99, Troponin I 0.19 H, NT-Pro-B Natriuret Pep > 43570 H, Total Protein 7.8, Albumin 4.1, Globulin 3.7 H, Albumin/Globulin Ratio 1.1 09/05/24 21:19 09/05/24 21:19 Response Orders (Tests/Meds): ED MEDICATIONS Generic Name Dose Route Start Last Admin Trade Name Freq PRN Reason Stop Dose Admin Milrinone Lactate 20 mg/ 100 mls @ 6.464 mls/hr 09/05/24 22:29 Sodium Chloride IV 10/05/24 22:28 .[id number] JENARO Protocol 0.125 MCG/KG/MIN Discontinued Medications Generic Name Dose Route Start Last Admin Trade Name Freq PRN Reason Stop Dose Admin Albuterol/Ipratropium 9 ml 09/05/24 21:18 09/05/24 21:20 Ipratropium/Albuterol 3 Ml Neb IH 09/05/24 21:19 9 ml ONCE ONE Administration Furosemide 80 mg 09/05/24 22:28 Furosemide 40mg/4ml Vial IV 09/05/24 22:29 ONCE ONE Azithromycin 500 mg/ Sodium 250 mls @ 250 mls/hr 09/05/24 21:19 09/05/24 21:44 Chloride IV 09/05/24 21:20 250 mls/hr ONCE ONE Administration Lactated Ringer's 500 mls @ 250 mls/hr 09/05/24 21:29 09/05/24 21:48 Lactated Ringer's 500ml IV 09/05/24 23:28 250 mls/hr .Q2H ONE Administration Ceftriaxone Sodium 1 gm/ 50 mls @ 100 mls/hr 09/05/24 21:54 Sodium Chloride IV 09/05/24 22:23 ONCE ONE Iopamidol 80 ml 09/05/24 22:04 09/05/24 22:07 Iopamidol-370 (76%);100ml Bottle IV 09/05/24 22:05 80 ml ONCE ONE Administration Methylprednisolone Sodium Succinate 125 mg 09/05/24 21:18 09/05/24 21:47 Methylprednisolone Sod Succ 125mg Vial IV 09/05/24 21:19 125 mg ONCE ONE Administration Sodium Chloride 50 ml 09/05/24 22:04 09/05/24 22:07 0.9 % Sodium Chloride 50 Ml Vial IV 09/05/24 22:05 50 ml ONCE ONE Administration Sodium Chloride 10 ml 09/05/24 22:04 09/05/24 22:07 Sodium Chloride 0.9% 10ml Syr (Rad Only) IV 09/05/24 22:05 10 ml ONCE ONE Administration ORDERS Category Date Time Status CT angio chest PE protocol Stat Cat Scan 09/05/24 21:53 Completed CXR --portable [XR chest portable] Stat Exams 09/05/24 21:18 Completed POCUS Point of Care (ER Only) Stat Exams 09/05/24 21:18 Taken BNP [NT Pro Brain Natriuretic Pep.] Stat Lab 09/05/24 21:19 Completed CBC w/Auto Diff [Complete Blood Count Auto Diff] Stat Lab 09/05/24 21:19 Completed CMP [Comprehensive Metabolic Panel] Stat Lab 09/05/24 21:19 Completed Full Resp Panel w/COVID ([facility]) Routine Lab 09/05/24 22:50 Received HCG,Quantitative Stat Lab 09/05/24 21:19 Received Trop I [Troponin I] Stat Lab 09/05/24 21:19 Completed Troponin I Q3H Lab 09/06/24 00:30 Ordered Troponin I Q3H Lab 09/06/24 03:30 Ordered Blood Culture Stat Micro 09/05/24 21:20 Received VBG [Venous Blood Gas] Stat RT 09/05/24 21:18 Completed EKG Request [ECG Request] Stat Y 09/05/24 21:20 Completed ECG Data Tracing #1: ECG Narrative: Independently interpreted by me rate is 117, rhythm is regular, axis is rightward deviated, no ST elevation in anatomical contiguous leads, QTc 384. MDM Narrative Medical Decision Narrative: In summary patient is a 44-year-old female past medical history described above presents emerged part for evaluation of cough and shortness of breath. Patient is hemodynamically stable in respiratory distress upon arrival, afebrile. Patient has diminished air movement on the left. She has diffuse biphasic wheezing in the setting of uncontrolled asthma and likely COPD given her smoking history. Differential also includes pneumonia and superimposed heart failure. Workup will be conducted with hematologic labs, chest x-ray, EKG, 3 DuoNebs, methylprednisolone, ceftriaxone, azithromycin. Full sepsis bolus fluids were considered but we will start with gentle crystalloid resuscitation given that her cardiac MRI shows ejection fraction of 37.3% on the left and 23.5% on the right with previous imaging and full bolus will be deferred. Nlixd-xs-[id number] ultrasound was performed at bedside and ejection fraction is approximately 20%. Given this after 50 cc of fluid crystalloid resuscitation we will stop fluid resuscitation at this time given that significant degree of heart failure is likely present. Initial hematologic labs reviewed by me significant leukocytosis of 32.4 with left shift, compensated VBG, hyponatremia with elevated troponin 0.19 proBNP undetectably high. I discussed case with Dr. Brown. We will start milrinone 0.125 and diuresis with 80 mg of Lasix. Hyponatremia is likely multifactorial including heart failure and elevated troponin will be trended as this is likely type II NSTEMI. Chest CTA diffuse interstitial prominence groundglass opacities likely representing edema with cardiomegaly and dilated pulmonary arteries 4 cm in diameter raising suspicion for pulmonary hypertension with associated pleural thickening posterior medially involving both hemithoraces. Questionable edematous changes in the upper abdominal mesenteric fat. Given this result although she has some source of infection with a fever most of her pathology is likely driving from her overt heart failure. The case was discussed with hospital medicine regarding management they will admit the patient their service for continued evaluation at this time.
[2024-09-05 21:25] LABS: VBG HCO3 20.7 mmol/L (23-30); VBG PCO2 33.6 mmol/L (35-51); VBG PH 7.41 mmol/L (7.31-7.41); VBG PO2 36.1 mmol/L (28-40)
[2024-09-05 21:26] LABS: Lactate Venous 3.3 mmol/L (0.4-2.0)
--- OUTSIDE RECORDS SUMMARY | 2024-09-05 21:27 | XMS_ITS | Clinical Summary ---
[facility] Address [address] [place] [address] Care Team Providers Care Line Service Attendant Name Role Phone Provider, No Known Primary Care Provider Unavail able Social History Tobacco Use Types Packs/Day Years Used Date Smoking Tobacco: Never Assessed Abuse Screen Answer Date Recorded Unsafe at Home or Work/School Not on file Feels Threatened by Someone? Not on file 01/2023 Does Anyone Keep You from Co ntacting Others or Doint Things Outside the Home? Not on file 11/28/2022 Physical Sign of Abuse Present Not on file 1 Housing Stability Answer Date Recorded Current Living Arrangements Not on file 11/17 Potentially Unsafe Housing Conditions Not on margaux e 11/28/2022 Family and Community Support Answer Santi e Recorded Help with Day-to-Day Activities Not on file 11/28/2022 Lonely or Isolated Not on file 11/28/2022 Employment Answer Date Recorded Do you want help finding or keeping work or a refugio b? Not on file 11/28/2022 Disabilities Answer Date Recorded Concentrating, Remembering, or Making Decisions Difficulty Not on file 11/28/2022 Doing Errands Independently Difficulty Not on fi le 11/28/2022 Education Answer Date Recorded Help with school or training? Not on file Preferred Language Not on file 11/28/2022 Comments Unknown Sex and Gender Information Value Date Recorded Sex Assigned at Not on file Legal Sex Female 12:48 PM EDT Gender Identity Not on file Sexual Orientation Not on file Plan of Treatment Health Maintenance Due Date Last Done Comments ANNUAL PHYSICAL 1980 Annual Gynecologic Pelvic an d Breast Exam 1980 HEPATITIS C SCREENING 1982 TDAP/TD VACCINES (1 - Tdap) 2001 MAMMOGRAM 2022 COVID-19 Vaccine (1 - 2024-2 5 season) 2023 INFLUENZA VACCINE 11/17/2024 Pneumococcal Vaccine 0-49 Aged Out No longer eligible based on patient's age to complete this topic Care Teams Line Service Attendant Relationship Specialty Start Date End Date Provider, [place] [address] PCP - General 08/06/19
--- OUTSIDE RECORDS SUMMARY | 2024-09-05 21:27 | XMS_ITS | Patient Health Record ---
Author Organization [facility] Address [address] [place] [address] Care Team Providers Care Master Dyer Name Role Phone Christi Stevens Primary Care Provider CHRISTI STEVENS Unavailable Unavaila ble Migration, Provider Unavailable Unavailable Allergies Allergen (clinical drug ingredient) Drug/Non Drug Allergy documented on EMR Reaction Allergy Type Onset Date Status codeine Codeine hives Drug Allergy Active Reason For Referral No Information Medications Medication SIG (Take, Route, Frequency, Duration) [...] a day; Duration: 30 days 03/10/2023 Active Social History Tobacco Use: Social History Observation Description Date Details (start date - stop date) Former Smoker NA - NA Smoking: Question Answer Notes Are you a: former smoker How long has it been since y ou last smoked? 1-3 months Additional Findings: Tobacco User Light cigarett e smoker ((1-9 cigs/day) Problems Problem Type SNOMED Code ICD Code Onset Dates Problem Status W/U Status Risk Notes Problem Tobacco use (658140574) Tobacco use (Z72.0) Active confirmed Problem Morbid obesity (779121897) Morbid obesity (E66.01) Active confirmed Problem Lymphedema (49273537) Lymphedema (I89.0) Active confirmed Problem Iron deficiency anemia (25153132) Iron deficiency anemia, unspecified iron deficiency anemia type (D50.9) Active confirmed Problem Body mass index 40+ - morbidly obese (123999486) BMI 60.0-69.9, adult (Z68.44) Active confirmed Problem Chronic sinusitis (60698013) Purulent postnasal drainage (J32.9) Active confirmed Encounters Encounter Location Date Provider Diagnosis [facility] [address] [place] [address] 05/22/2024 Provider Migration Plan Of Treatment Pending Test Test Name Order Date Physical Therapy : Lymphedema 03/25/2023 Physical Therapy : Lymphedema 08/27/2022 Insurance Providers Payer Name Payer Address Payer Phone Subscriber Number Group Number Insured Name Patient Relationship to Insured Coverage Start Date Coverage End Date [employer] [facility] [address] [address] [place] [address] [id number] Lian Painting Self - patient is the insured Medical (General) History Medical History History ICD Code Obesity CATHRYN - not treated Tobacco use Surgical History Surgery Date(Month/Year) tonsillectomy/ear tubes 1988 Hospitalization History Reason Date(Month/Year) above
[2024-09-05 21:29] VITALS: BP 169/104; PULSE 119; RESP 39; TEMP 38.8; O2SAT 91; BMI 56.1
[2024-09-05 21:42] LABS: Hematocrit 37.7 % (37.0-47.0); Hemoglobin 10.6 g/dL (12.2-16.2); Mean Corpuscular HGB Conc 28.1 g/dL (31.8-35.4); Mean Corpuscular Hemoglobin 19.2 pg (27.0-31.2); Mean Corpuscular Volume 68.3 fl (81-99); Platelet Count 562 K/mm3 (142-424); Red Blood Count 5.52 M/mm3 (4.20-5.40); Red Cell Distribution Width-SD 41.2 fL
[2024-09-05 21:43] LABS: Immature Granulocytes % 1.3 %; Nucleated Red Blood Cells % 0.2 %
[2024-09-05] MEDS: AZITHROMYCIN 500 MG in 0.9 % SODIUM CHLORIDE 250 ML 250 MG IV (21:44)
[2024-09-05 21:46] LABS: White Blood Count 32.4 K/mm3 (4.8-10.8)
[2024-09-05] MEDS: METHYLPREDNISOLONE SOD SUCC 125MG VIAL 125 MG IV (21:47)
[2024-09-05] MEDS: RINGERS SOLUTION,LACTATED 500 ML 250 ML IV (21:48)
[2024-09-05 21:52] LABS: Anion Gap 13.4 mEq/L (5-15); Blood Urea Nitrogen 15 mg/dl (7-17); Calcium 8.9 mg/dl (8.4-10.2); Carbon Dioxide 22 mmol/L (22.0-30.0); Chloride 98 mmol/L (98-107); Creatinine Clearance Estimated 85 mL/min (50-200); Creatinine,Serum 0.90 mg/dl (0.52-1.04); Estimated Glomerular Filt Rate 69 ml/min (>60); GFR (African American) 83 ML/MIN (>60); Glucose 158 mg/dl (74-100); NT Pro Brain Natriuretic Pep. > 30000 pg/mL (0-125); Potassium 4.4 mmoL/L (3.5-5.1); Sodium 129 mmol/L (136-145)
[2024-09-05 21:53] LABS: Alanine Aminotransferase 86 U/L (12-78); Albumin Level 4.1 g/dl (3.5-5.0); Albumin/Globulin Ratio 1.1 (1.1-1.8); Alkaline Phosphatase 99 U/L (38-126); Aspartate Amino Transferase 123 U/L (14-36); Bilirubin,Total 2.4 mg/dl (0.2-1.3); Globulin 3.7 g/dL (1.3-3.2); Total Protein,Serum 7.8 g/dl (6.3-8.2)
--- NOTE | 2024-09-05 21:53 | CT_ITS ---
PROCEDURE INFORMATION: Exam: CTA Chest With Contrast Exam date and time: 09/05/2024 10:05 PM Age: 44 years old Clinical indication: Cough; Additional info: Cough, SOB TECHNIQUE: Imaging protocol: Computed tomographic angiography of the chest with contrast. Exam focused on the arteries. 3D rendering (Not supervised by radiologist): MIP and/or 3D reconstructed images were created by the technologist. Radiation optimization: All CT scans at this facility use at least one of these dose optimization techniques: automated exposure control; mA and/or kV adjustment per patient size (includes targeted exams where dose is matched to clinical indication); or iterative reconstruction. Contrast material: ISO 370; Contrast volume: 80 ml; Contrast route: INTRAVENOUS (IV); COMPARISON: CR XR CHEST PORTABLE 09/05/2024 9:24 PM FINDINGS: Pulmonary arteries: The pulmonary artery is dilated measuring 4 cm in diameter. Aorta: Unremarkable. No aortic aneurysm. No aortic dissection. Lungs: There is diffuse interstitial prominence and mild ground-glass opacity throughout both lungs. There are bandlike densities within lingula likely representing atelectasis. Pleural spaces: Pleural thickening posteromedially involving both le thoraces. Heart: The heart is enlarged. Lymph nodes: Unremarkable. No enlarged lymph nodes. Intraperitoneal space: Questionable edematous changes within the upper abdominal mesenteric fat versus artifact. Bones/joints: Unremarkable. No acute fracture. Soft tissues: There is mild body wall edema. Other findings: The study is degraded by respiratory motion artifact and the patient's body habitus. IMPRESSION: 1. Diffuse interstitial prominence and mild ground-glass opacity throughout both lungs likely representing edema. 2. Cardiomegaly. 3. Dilated pulmonary artery measuring 4 cm in diameter raising the suspicion for pulmonary artery hypertension. 4. Pleural thickening posteromedially involving both le thoraces. 5. Questionable edematous changes within the upper abdominal mesenteric fat versus artifact and mild body wall edema.
[2024-09-05 21:54] LABS: Troponin I 0.19 ng/ml (0.00-0.034)
[2024-09-05] MEDS: 0.9 % SODIUM CHLORIDE 50 ML VIAL IV (22:07)
[2024-09-05] MEDS: IOPAMIDOL-370 (76%);100ML BOTTLE 80 ML IV (22:07)
[2024-09-05] MEDS: SODIUM CHLORIDE 0.9% 10ML SYR (RAD ONLY) 10 ML IV (22:07)
--- NOTE | 2024-09-05 22:16 | PC.NURSE ---
DEANGELO stopped per Dr. Mora
[2024-09-05 22:18] LABS: Total Cells Counted 100
[2024-09-05 22:20] LABS: RBC Morphology Normal
[2024-09-05 22:30] VITALS: PULSE 119
[2024-09-05 22:53] LABS: Adenovirus,PCR Not Detected (NotDetected); Chlamydophila Pneumoniae, PCR Not Detected (NotDetected); Coronavirus 19, PCR Not Detected (NotDetected); Coronovirus HKU1,PCR Not Detected (NotDetected); Influenza A, PCR Not Detected (NotDetected); Influenza AH1, 2009 Not Detected (NotDetected); Influenza AH1, PCR Not Detected (NotDetected); Influenza AH3,PCR Not Detected (NotDetected); Influenza B, PCR Not Detected (NotDetected); Mycoplasma Pneumoniae, PCR Not Detected (NotDetected); Parainfluenza 1, PCR Not Detected (NotDetected); Parainfluenza 2, PCR Not Detected (NotDetected); Parainfluenza 3, PCR Not Detected (NotDetected); Parainfluenza 4, PCR Not Detected (NotDetected)
--- NOTE | 2024-09-05 23:01 | P.HP_ITS ---
<Statement entered by Jt Goodman MD - 09/07/24 12:08> Personally evaluated patient and agree with plan of care as outlined by the STAFF [employer] DEFENSE OFFICER. History of Present Illness *Admission Date: 09/05/24 *Reason for visit:: Respiratory failure, pneumonia cardiomegaly *History of present illness: Morbidly obese female with a very large left ventricle. That has been a smoker since about age 18, comes in in respiratory distress.. Last cigarette approximately 3 days ago. . Patient is a 44-year-old female with past medical history of hypertension, asthma, chronic smoker, methamphetamine use who presents emergency department for evaluation of cough and shortness of breath. Onset was acute, over the last 3 days. She smoked a pack a day until 3 days ago when she developed a cough and shortness of breath generally feeling unwell. Upon EMS arrival she was satur ating 86% which went up to the mid 90s on nonrebreather. Patient was given an albuterol treatment prior to arrival. She denies chest pain. No other interventions prehospital. No other acute complaints at this time. I have spoken with the ER doctor and agree that the patient needs to be admitted to the intensive care unit, he has spoken with Dr. Brown and cardiology and pulmonary consult will be done. Patient will be started on milrinone has been given 80 mg of Lasix. Also noting slightly elevated troponin. I have spoken to the patient and her significant other, that she is very ill at this time we are going to do everything to bring fluid off of her clear her lungs treat any infection. That she will be in the ICU tonight. We have talked about CODE STATUS and the patient wants to remain a full code. Teaching done on need for lifestyle changes that in my opinion she would get better this time but be back within a month.. [facility] Disclaimer: The information contained in this section may have been updated after the patient was seen, as this information can be updated by other users. Medical History (Updated 09/06/24 @ 00:15 by Tyree Dominguez APRN) Peripheral vascular disease Abscess Sinusitis Erythema nodosum Bronchitis Cellulitis Tennis elbow Nausea and vomiting Acute bronchitis Gastroenteritis Cardiomegaly Restless sleeper Daytime somnolence Snoring HTN (hypertension) History of asthma Edema Tobacco dependence syndrome Dyspnea Surgical History History of placement of ear tubes History of 2 sections History of tonsillectomy and adenoidectomy Social History (Updated 07/21/24 @ 13:26 by Yuly Dunham MA) Smoking Status: Current every day smoker tobacco type: cigarettes packs per day: 1 how long ago did patient quit smoking: one month second hand exposure: No alcohol intake: current alcohol intake frequency: holidays/special occasions only substance use type: denies use current occupational status: employed Travel in the last 8 weeks?: None housing: house caffeine: No Have you lived/traveled outside [place] in past 30 days?: No Contact w/someone who lives/traveled outside US past 30 days?: No Exposure to someone with infectious disease in past 14 days?: No Do you have a fever (greater than 100.4 F or 38 C)?: No Have you tested positive for COVID-19?: No Exposed to someone with COVID-19 in past 14 days?: No Do you have a sore throat?: No Do you have a cough?: No Do you have any weakness?: No Do you have any diarrhea?: No Are you experiencing any unusual bleeding?: No Do you have any muscle aches/pain?: No Do you have any abdominal pain?: No Are you experiencing loss of taste or smell?: No Other Medical History Have you received the Flu Vaccine for this season: No Have you received the Pneumonia Vaccine: No Review of Systems Review of Systems Review of systems:: pertinent systems reviewed and negative unless documented below Review of systems (narrative): Started worsening 3 days ago quit smoking Constitutional Constitutional: Reports as per HPI, Reports anorexia, Reports fatigue and Reports weakness Eyes Eyes: Reports as per HPI ENT Ears, Nose, Mouth, and Throat: Reports as per HPI *Cardiovascular Cardiovascular: Reports as per HPI, Reports chest pain, Reports dyspnea, Reports dyspnea on exertion, Reports orthopnea and Reports paroxysmal nocturnal dyspnea *Respiratory Respiratory: Reports as per HPI, Reports dyspnea and Reports dyspnea on exertion Comments: Respiratory rate 30 or greater on oxygen *Gastrointestinal Gastrointestinal: Reports as per HPI Comments: Denies abdominal pain *Genitourinary Genitourinary: Reports as per HPI *Musculoskeletal Musculoskeletal: Reports as per HPI Comments: Patient noting over the last month that peripheral edema has gotten worse that she is gone to have weeping places on her legs actually was going to see a clinic on Friday about this Integumentary/Breasts Skin/Breast: Reports as per HPI *Neurologic Neurologic: Reports as per HPI and Reports weakness Comments: Patient denies any seizure type activity, denies any weakness unilateral Psychiatric Psychiatric: Reports as per HPI Comments: In physical distress at this time related to respiratory status but alert oriented able to answer questions well Endocrine Endocrine: Reports as per HPI and Reports fatigue Hematologic/Lymphatic Hematologic/Lymphatic: Reports as per HPI Allergic/Immunologic Allergic/Immunologic: Reports as per HPI Meds Home Medications and Allergies Home Medications ?Medication ?Instructions ?Recorded ?Confirmed ?Type cholecalciferol (vitamin D3) 1,250 1,250 mcg PO QWEEK #7 caps 01/06/24 07/21/24 Rx mcg (50,000 unit) capsule cholecalciferol (vitamin D3) 50 50 mcg PO DAILY #30 ca ps 01/06/24 07/21/24 Rx mcg (2,000 unit) capsule fluticasone furoate 100 1 inh inhalation DAILY #60 e a 04/20/24 07/21/24 Rx mcg-vilanterol 25 mcg/dose inhalation powder (Breo Ellipta) hydrochlorothiazide 25 mg tablet 25 mg PO DAILY #30 ta bs 04/20/24 07/21/24 Rx ferrous fumarate 324 mg (106 mg See Rx Instructions .R oute 05/28/24 07/21/24 Rx iron) tablet .COMPLEX #90 tabs lisinopril 10 mg tablet 10 mg PO DAILY #30 tabs 06/1107/21/24 Rx albuterol sulfate 90 mcg/actuation See Rx Instructions .Route 07/29/24 Rx aerosol inhaler .COMPLEX #8.5 grams New Prescriptions to Start Prescriptions: Allergies Allergy/AdvReac Type Severity Reaction Status Date / Time codeine (CODEINE) Allergy Mild I-RASH Verified 07/21/24 13:14 Exam Data for Last 24 hours Vital signs and Labs for Last 24 Hours: Temp Pulse Resp BP Pulse Ox O2 Del Method O2 Flow Rate 101.8 F H 119 H 39 H 169/104 H 91 L Vapotherm 30 09/05/24 21:29 09/05/24 22:30 09/05/24 21:29 09/05/24 21:29 09/05/24 21:29 09/05/24 22:31 09/05/24 22:31 FiO2 100 09/05/24 22:31 Laboratory Results - last 24 hr 09/05/24 21:18: VBG pH 7.41, VBG pCO2 33.6 L, VBG pO2 36.1, VBG HCO3 20.7 L, VBG Total CO2 21.8 L, VBG O2 Saturation 65.2, VBG Base Excess -3.9 L, VBG Lactic Acid 3.3 H 09/05/24 21:19: WBC 32.4 H*, RBC 5.52 H, Hgb 10.6 L, Hct 37.7, MCV 68.3 L, MCH 19.2 L, MCHC 28.1 L, RDW 18.5 H, Plt Count 562 H, MPV 10.6 H, Neut % (Auto) 92.5 H, Lymph % (Auto) 2.8 L, [place] % (Auto) 3.2, Eos % (Auto) 0.0 L, Baso % (Auto) 0.2, Neut # (Auto) 30.0 H, Lymph # (Auto) 0.9, [place] # (Auto) 1.1 H, Eos # (Auto) 0.0, Baso # (Auto) 0.1, Total Counted 100, Neutrophils % (Manual) 90 H, Lymphocytes % (Manual) 8 L, Monocytes % (Manual) 2, Platelet Estimate Normal, RBC Morphology Normal, Sodium 129 L, Potassium 4.4, Chloride 98, Carbon Dioxide 22, Anion Gap 13.4, BUN 15, Creatinine 0.90, Estimated Creat Clear 85, Estimated GFR 69, Est GFR ( Amer) 83, Glucose 158 H, Calcium 8.9, Total Bilirubin 2.4 H, AST 123 H, ALT 86 H, Alkaline Phosphatase 99, Troponin I 0.19 H, NT-Pro-B Natriuret Pep > 46207 H, Total Protein 7.8, Albumin 4.1, Globulin 3.7 H, Albumin/Globulin Ratio 1.1 I & O for Last 24 hours: Intake & Output 09/03/24 09/04/24 09/05/24 09/06/24 05:59 05:59 05:59 05:59 Weight 380 lb Radiology Reports for the Last 24 Hours: Diffuse interstitial prominence and mild ground-glass opacity throughout both lungs likely representing edema. 2. Cardiomegaly. 3. Dilated pulmonary artery measuring 4 cm in diameter raising the suspicion for pulmonary artery hypertension. 4. Pleural thickening posteromedially involving both le thoraces. 5. Questionable edematous changes within the upper abdominal mesenteric fat versus artifact and mild body wall edema. Narrative: White count 32,000 Constitutional Constitutional: moderate distress, morbidly obese, chronically ill appearing and cooperative *Routine HEENT Exam Head: Present normocephalic and atraumatic Eye: Present EOMI, PERRL and normal accommodation ENT: Present mucous membranes moist and oropharynx clear *Routine Neck Exam Neck: Present supple and full ROM Comments: Unable to evaluate carotid arteries Routine Chest/Breast/Axilla Exam Comments: Equal expansion bilaterally no signs of chest wall pain or injury *Routine Respiratory Exam Respiratory: Present decreased breath sounds, prolonged expiratory phase, respiratory distress and symmetric chest movement Comments: Respiratory rate anywhere from 25-32, patient able to speak in 3 word phrases *Routine Cardiovascular Exam Cardiovascular: Present tachycardia Comments: With increased respiratory rate difficult to evaluate heart sounds at this time., Noting weeping from both lower extremities, significant nonpitting edema *Routine Abdominal Exam Abdominal: Present soft and normoactive bowel sounds Comments: Patient has a very large abdomen but there was no signs of tenderness to moderate palpation *Routine Rectal Exam Rectal:: deferred *Routine Genitalia Exam Genitalia:: deferred *Routine Extremities Exam Extremities: Present full ROM, pulses intact and tenderness Comments: Both lower extremities extremely edematous H&P: Result Impressions 1. Congestive heart failure with respiratory failure. 2. Elevated white count question infection pneumonia to need to evaluate on myocarditis 3. Peripheral vascular disease with peripheral edema and weeping. 4. Tobacco abuse long-term, illicit drug use Imaging and Cardiology CT scan - chest: Status: image reviewed by me Additional comments: Diffuse interstitial prominence and mild ground-glass opacity throughout both lungs likely representing edema. 2. Cardiomegaly. 3. Dilated pulmonary artery measuring 4 cm in diameter raising the suspicion for pulmonary artery hypertension. 4. Pleural thickening posteromedially involving both le thoraces. 5. Questionable edematous changes within the upper abdominal mesenteric fat versus artifact and mild body wall edema. Assessment and Plan *Assessment and plan (1) Respiratory failure with hypoxia: Status: Acute Qualifiers: Chronicity: acute on chronic Qualified Code(s): J96.21 - Acute and chronic respiratory failure with hypoxia Category: Medical Code(s): J96.91 - Respiratory failure, unspecified with hypoxia (2) Cardiomyopathy: Status: Acute Qualifiers: Cardiomyopathy type: dilated Qualified Code(s): I42.0 - Dilated cardiomyopathy Category: Medical Code(s): I42.9 - Cardiomyopathy, unspecified (3) Dyspnea: Status: Acute Qualifiers: Dyspnea type: dyspnea on exertion Qualified Code(s): R06.00 - Dyspnea, unspecified Category: Medical Code(s): R06.00 - Dyspnea, unspecified (4) Chest pain: Status: Acute Qualifiers: Chest pain type: chest pain on breathing Qualified Code(s): R07.1 - Chest pain on breathing Category: Medical Code(s): R07.9 - Chest pain, unspecified (5) Smoking greater than 25 pack years: Status: Acute Category: Social Hx Code(s): F17.210 - Nicotine dependence, cigarettes, uncomplicated (6) Peripheral vascular disease: Status: Acute Category: Medical Code(s): I73.9 - Peripheral vascular disease, unspecified (7) Obesity: Status: Acute Qualifiers: Obesity type: unspecified obesity type Obesity classification: adult class 3 (BMI >= 40) Qualified Code(s): E66.813 - Obesity, class 3; Z68.41 - Body mass index [BMI] 40.0-44.9, adult Category: Medical Code(s): E66.9 - Obesity, unspecified (8) Tobacco dependence syndrome: Status: Chronic Category: Medical Code(s): F17.200 - Nicotine dependence, unspecified, uncomplicated Plan 1. Patient will be placed in a unit since there is a danger that she may decompensate tonight become tired out and required either BiPAP or being intubated.. Cardiology Dr. Brown contacted in the ER. Patient ordered to proceed observe and creased cardiac output. Lasix also has been given to treat for congestive heart failure 2. Respiratory status with possible pneumonia elevated white count continuing antibiotics and breathing treatment the patient has received 1 dose of steroids in the emergency room., Patient able to talk a little bit better than when she arrived. Will continue aggressive treatment. Can see the possibility patient could decompensate requiring BiPAP or intubation 3. Elevated white count. Question pneumonia on CT scan groundglass opacity but no significant accumulation of fluid. Question possibility of myocarditis, patient is known to use illegal drugs. Question infection of unknown origin are location going on in the body at this time. Antibiotics will be continued
[2024-09-05] MEDS: FUROSEMIDE 40MG/4ML VIAL 80 MG IV (23:13)
[2024-09-05] MEDS: CEFTRIAXONE 1 GM 1 GM in 0.9 % SODIUM CHLORIDE 50 ML IV (23:13)
--- NOTE | 2024-09-05 23:14 | PC.NURSE ---
Pt and family have been made aware that she is not to have anything to eat or drink at this time. she is now NPO. they have attempted many times to give her drinks and snacks and have been reminded that she cannot have anything at all. MD and nurse aware of this.
[2024-09-05 23:17] VITALS: O2SAT 97
[2024-09-05] MEDS: MILRINONE LACTATE 20 MG in 0.9 % SODIUM CHLORIDE 80 ML 6.46 MG IV (23:50)
--- NOTE | 2024-09-05 23:59 | PC.NURSE ---
Report called to KIM Diego
[2024-09-06] VITALS (109 sets, daily range): BP systolic 66–200; BP diastolic 43–147; PULSE 50–120; RESP 11–31; TEMP 36.6–38.4; O2SAT 80–100; BMI 58.1
--- NOTE | 2024-09-06 00:18 | CA_ITS ---
APPROVED REPORT EXAM: Comprehensive 2D, Doppler, and color-flow Echocardiogram Track Laying Machine Operator: Rhea Samaniego CRT Ht: 5 ft 9 in Wt: 380lbs BSA: 2.71 BP: 169/104 mmHg Indications: Congestive Heart Failure, Shortness of Breath, Cardiomyopathy, Hypertension/HDD, smoker, methamphetamine use 2D Dimensions LA Volume 54.30 mL LA Volume Index 19.50 mL/m2 (M/F) 16-34 M-Mode Dimensions RVDd 3.49 cm (0.9-2.6) LA Diam 4.06 cm (1.9-4.0) LVDd 5.70 cm (3.5-5.7) LVDs 4.42 cm (3.5-5.7) IVSd 1.97 cm (0.6-1.1) PWd 1.65 cm (0.6-1.1) EF (Teich) 44.60% FS 22.50% EDV (Teich) 160.00 mL TAPSE 3.90 (<1.7) ESV (Teich) 88.60 mL LV Diastology E Decel Time 150 (160-240 msec) E/A Ratio 1.98 MED A' 12.40 cm/s LAT A' 9.30 cm/s Aortic Valve ALYCIA Index 0.86 cm2/m2 AoV Peak Gus. 224.0 (50-130 cm/s) AO Peak GR. 20.00 mmHg AO Mean GR. 10.80 (<5 mmHg) AO VTI 35.8 (18-25 cm) ALYCIA (VTI) 2.38 (2.5-4.5 cm2) Mitral Valve MV E Max Gus. 107.0 (40-130 cm/s) MV A Velocity 54.0 (40-130 cm/s) E/A Ratio 1.98 MV PHT 44.0 ms Pulmonary Valve PV Peak Velocity 140.0 (50-150 cm/s) Tricuspid Valve TR P. Velocity 346.00 cm/s RAP Estimate 10.00 mmHg RVSP 57.90 mmHg Left Ventricle The left ventricle is normal size. The left ventricular systolic function is normal. The left ventricular ejection fraction is within the normal range. There is normal left ventricular wall thickness. There is normal LV segmental wall motion. The left ventricular diastolic function is normal. LVEF is 55%. Right Ventricle Right ventricle is mildly dilated. The right ventricular systolic function is normal. Atria Left atrium is mildly dilated. Right atrium is mildly dilated. There is no Doppler evidence of interatrial shunt. Aortic Valve The aortic valve opens well. Peak transaortic velocity 2.4 m/s. Mean AV gradient 10 mmHg. Max AV gradient 16 mmHg. Trace aortic regurgitation. Mitral Valve The mitral valve is normal in structure. No evidence of mitral valve stenosis. Trace mitral regurgitation. Tricuspid Valve Tricuspid valve is grossly normal in structure and function. Mild tricuspid regurgitation. RVSP is 40-45 mmHg. Pulmonic Valve The pulmonary valve is normal in structure. Trace pulmonic regurgitation. Great Vessels The aortic root is normal in size. IVC is normal in size and collapses >50% with inspiration. Pericardium There is no pericardial effusion. Other Information Study Quality: Fair Conclusion Normal biventricular systolic function. Mild RV dilation. Mild biatrial dilation. Elevated transaortic gradients (peak transaortic velocity 2.4 m/s. Mean AV gradient 10 mmHg. Max AV gradient 16 mmHg) in the setting of normal AV opening. Mild TR. Elevated RVSP 40-45 mmHg. In the setting of elevated transaortic gradients with otherwise normal AV opening, further outpatient evaluation with NICHOLAS may be suggested for evaluation of subaortic membrane. Electronically signed by : Janay Fisher MD 09/07/2024 00:35:46
--- NOTE | 2024-09-06 00:59 | PC.NURSE ---
Patient arrived to ICU unit via stretcher from ED @00;28
[2024-09-06 01:18] LABS: POC Glucose,Bedside 138 (70-110)
[2024-09-06 01:27] LABS: Reflex Lactic Add Lactic Reflex
--- NOTE | 2024-09-06 01:35 | PC.WOUNDNOTE ---
right leg left leg
[2024-09-06] MEDS: PIPERACILLIN/TAZO 3.375 GM in 0.9 % SODIUM CHLORIDE 50 ML IV ×5 (01:42→23:30)
[2024-09-06 01:55] LABS: Troponin I 0.22 ng/ml (0.00-0.034)
[2024-09-06] MEDS: MILRINONE LACTATE 20 MG in 0.9 % SODIUM CHLORIDE 80 ML 19.39 MG IV ×4 (03:54→21:39)
--- NOTE | 2024-09-06 03:58 | EXP.EVENT.NO ---
Problem: Patient is admitted tonight is actually put out 2 L. On the milrinone. Systolic blood pressure getting greater than 160, ICU nurse slowly decreasing milrinone exam: Patient has been sleeping well but had a period of SVT heart rate increased up to the 170s, this corrected itself now back down below 120 plan: EKG, troponin, BMP, magnesium ordered. 04:00 staff reported that patient now has a fever Tylenol and/or Toradol ordered 6:15 patient in sound asleep O2 sats are good CO2 is good, patient is totally exhausted, still awaiting a morning chest x-ray to reevaluate from previous day, replacing some fluid because of potassium replacement we will talk to next shift about maybe changing some of that to p.o.. Patient is stable at this point in time vital signs are good continues with PVCs rest of EKG looks relatively normal there is no ST Salik segment elevation or depressions
--- NOTE | 2024-09-06 04:10 | ECG_ITS ---
APPROVED REPORT Exam: Resting ECG HR:106 bpm ECG Measurements Heart Rate 106 AXES MN 162 P 65 QRSd 100 QRS 97 QT 376 T 109 QTc 438 Conclusion SINUS TACHYCARDIA WITH FREQUENT VENTRICULAR PREMATURE COMPLEXES POSSIBLE LEFT ATRIAL ENLARGEMENT [-0.1mV P-WAVE IN V1/V2] BORDERLINE RIGHT AXIS DEVIATION [QRS AXIS > 90] PATTERN CONSISTENT WITH PULMONARY DISEASE MODERATE T-WAVE ABNORMALITY, CONSIDER ANTEROLATERAL ISCHEMIA [-0.1+ mV T-WAVE IN V3-V6] ABNORMAL ECG UNCONFIRMED REPORT Electronically signed by : Loco Ames MD 09/06/2024 17:25:06
[2024-09-06] MEDS: KETOROLAC 30MG/ML VIAL 15 MG IV (04:21)
[2024-09-06] MEDS: ACETAMINOPHEN 500MG TAB 1000 MG PO (04:22)
[2024-09-06 04:24] LABS: Lactic Acid Follow Up (RFLX 1) 2.1 mmol/L (0.7-2.1)
[2024-09-06 04:27] LABS: Troponin I 0.25 ng/ml (0.00-0.034)
[2024-09-06] MEDS: IPRATROPIUM/ALBUTEROL 3 ML NEB IH ×4 (04:38→23:15)
[2024-09-06 04:42] LABS: Magnesium 1.5 mg/dl (1.6-2.3)
--- NOTE | 2024-09-06 04:52 | PC.NURSE ---
@approx 0310, Pts BP noted to increase. Milrinone titrated per MAR with no improvement noted. Provider notified. See MAR. Kristofer Isbell also notified of pts critical troponin @0450. no new orders. Pt denies CP.
[2024-09-06 05:00] LABS: Anion Gap 10.4 mEq/L (5-15); Carbon Dioxide 25 mmol/L (22.0-30.0); Chloride 98 mmol/L (98-107); Potassium 3.4 mmoL/L (3.5-5.1); Sodium 130 mmol/L (136-145)
[2024-09-06 05:01] LABS: Blood Urea Nitrogen 16 mg/dl (7-17); Calcium 8.5 mg/dl (8.4-10.2); Creatinine Clearance Estimated 92 mL/min (50-200); Creatinine,Serum 0.80 mg/dl (0.52-1.04); Estimated Glomerular Filt Rate 79 ml/min (>60); GFR (African American) 95 ML/MIN (>60); Glucose 173 mg/dl (74-100)
[2024-09-06] MEDS: MAGNESIUM SULFATE IN WATER 2 GM/50 ML PIGGYBACK IV ×2 (05:31→06:22)
[2024-09-06 05:51] LABS: Reflex Lactic (2 hrs) Add Lactic Reflex
[2024-09-06 05:57] LABS: ABG HCO3 23.5 mmhg (22.0-26.0); ABG PCO2 32.4 mmhg (35.0-45.0); ABG PH 7.48 mmol/L (7.35-7.45); ABG PO2 128.5 mmhg (80-100); ABG TCO2 24.5 mmhg (23-27)
--- NOTE | 2024-09-06 05:58 | PC.NURSE ---
Addendum entered by Brandie Bronson RN 09/06/24 06:06: no new orders at this time Original Note: Called Kristofer Isbell APRN to bedside to assess pt at this time. Pt hardly able to keep eyes open for conversation. Shallow breathing noted.
[2024-09-06 05:59] LABS: Source Right Radial
[2024-09-06 06:19] LABS: POC Glucose,Bedside 208 (70-110)
[2024-09-06 06:26] LABS: Red Blood Count 4.80 M/mm3 (4.20-5.40); White Blood Count 21.6 K/mm3 (4.8-10.8)
[2024-09-06 06:27] LABS: Hematocrit 32.6 % (37.0-47.0); Mean Corpuscular HGB Conc 29.1 g/dL (31.8-35.4); Mean Corpuscular Hemoglobin 19.8 pg (27.0-31.2); Mean Corpuscular Volume 67.9 fl (81-99); Platelet Count 489 K/mm3 (142-424); Red Cell Distribution Width-SD 40.9 fL
[2024-09-06 06:28] LABS: Immature Granulocytes % 1.1 %; Nucleated Red Blood Cells % 0 %
[2024-09-06 06:30] LABS: Anion Gap 10.3 mEq/L (5-15); Blood Urea Nitrogen 16 mg/dl (7-17); Carbon Dioxide 26 mmol/L (22.0-30.0); Chloride 101 mmol/L (98-107); Creatinine Clearance Estimated 82 mL/min (50-200); Creatinine,Serum 0.90 mg/dl (0.52-1.04); Estimated Glomerular Filt Rate 69 ml/min (>60); GFR (African American) 83 ML/MIN (>60); Potassium 3.3 mmoL/L (3.5-5.1); Sodium 134 mmol/L (136-145)
[2024-09-06 06:31] LABS: Alanine Aminotransferase 100 U/L (12-78); Albumin Level 3.3 g/dl (3.5-5.0); Albumin/Globulin Ratio 1.1 (1.1-1.8); Aspartate Amino Transferase 122 U/L (14-36); Bilirubin,Total 1.9 mg/dl (0.2-1.3); Calcium 8.7 mg/dl (8.4-10.2); Globulin 2.9 g/dL (1.3-3.2); Glucose 197 mg/dl (74-100); Total Protein,Serum 6.2 g/dl (6.3-8.2)
[2024-09-06 06:32] LABS: Alkaline Phosphatase 106 U/L (38-126)
--- NOTE | 2024-09-06 06:41 | XR_ITS ---
FINAL REPORT TECHNIQUE: Single view chest CLINICAL HISTORY: Congestive heart failure, respiratory failure COMPARISON: 09/05/2024 FINDINGS: A single view of the chest was obtained. The heart is mildly enlarged. There are stable increased bilateral markings favored to represent minimally improved edema over pneumonia. There is no pneumothorax. IMPRESSION: Findings favored to represent minimally improved edema over pneumonia. Reviewed, Interpreted and Dictated by Damian Sanchez MD Transcribed by Joselin Flores Authenticated and . [facility]
[2024-09-06 07:39] LABS: Cholesterol 59 mg/dl (140-200); Magnesium 1.6 mg/dl (1.6-2.3); Triglycerides 79 mg/dl (30-150)
[2024-09-06 07:40] LABS: HDL Cholesterol 27 mg/dl (40-60)
[2024-09-06] MEDS: humaLOG 100 UNITS/ML 10ML VIAL (SSI) SUBCUT ×4 (08:05→21:21)
[2024-09-06 08:09] LABS: Folate 11.10 ng/mL; Vitamin B12 907 pg/mL (239-931)
[2024-09-06] MEDS: SPIRONOLACTONE 25MG TABLET 25 MG PO (08:29)
[2024-09-06] MEDS: ASPIRIN 325MG TABLET 325 MG PO (08:29)
--- NOTE | 2024-09-06 08:44 | HMH.PHAINT1 ---
Pharmacy Intervention Comments: home medication list verified using list from outpatient pharmacy, pt family interview and speaking with outpatient pharmacist
[2024-09-06] MEDS: AZITHROMYCIN 500 MG in 0.9 % SODIUM CHLORIDE 250 ML 250 MG IV (08:46)
[2024-09-06] MEDS: FUROSEMIDE 100MG/10ML VIAL 80 MG IV ×2 (08:47→15:59)
[2024-09-06 08:50] LABS: Hypochromasia 2+; Total Cells Counted 100
[2024-09-06 08:52] LABS: Microcytosis 1+
[2024-09-06 09:01] LABS: Hemoglobin 9.5 g/dL (12.2-16.2)
[2024-09-06 09:45] LABS: Free T4 (Free Thyroxine) 1.47 ng/dl (0.78-2.19)
--- NOTE | 2024-09-06 09:49 | P.CONS_ITS ---
History of Present Illness History of present illness: Ms. Painting is a 44-year-old female with reported history of tobacco abuse hypertension asthma presented to the ER with worsening respiratory distress cough found to be needing new oxygen requirements and pulmonary was called for further evaluation and management. [facility] Disclaimer: The information contained in this section may have been updated after the patient was seen, as this information can be updated by other users. Medical History (Updated 09/06/24 @ 12:28 by Rosa Vanegas MD) Pulmonary embolism Elevated liver enzymes Elevated white blood cell count Pneumonia Abnormal cardiovascular stress test Non-STEMI (non-ST elevated myocardial infarction) Pulmonary edema Cardiomyopathy Acute on chronic HFrEF (heart failure with reduced ejection fraction) Peripheral vascular disease Abscess Sinusitis Erythema nodosum Bronchitis Cellulitis Tennis elbow Nausea and vomiting Acute bronchitis Gastroenteritis Cardiomegaly Restless sleeper Daytime somnolence Snoring HTN (hypertension) History of asthma Edema Tobacco dependence syndrome Dyspnea Surgical History History of placement of ear tubes History of 2 sections History of tonsillectomy and adenoidectomy Social History (Updated 09/06/24 @ 01:06 by Brandie Bronson RN) Smoking Status: Current every day smoker tobacco type: cigarettes packs per day: 1 how long ago did patient quit smoking: one month second hand exposure: No alcohol intake: former substance use type: denies use current occupational status: employed and disabled Travel in the last 8 weeks?: None housing: house caffeine: No Have you lived/traveled outside [place] in past 30 days?: No Contact w/someone who lives/traveled outside [place] past 30 days?: No Exposure to someone with infectious disease in past 14 days?: No Do you have a fever (greater than 100.4 F or 38 C)?: Yes Have you tested positive for COVID-19?: No Exposed to someone with COVID-19 in past 14 days?: No Do you have a sore throat?: No Do you have a cough?: Yes Do you have any weakness?: Yes Are you experiencing any nausea/vomitting?: No Do you have any diarrhea?: No Are you experiencing any unusual bleeding?: No Do you have any muscle aches/pain?: No Do you have any abdominal pain?: No Are you experiencing loss of taste or smell?: No Review of Systems Constitutional Constitutional: Reports fatigue and Reports weakness Eyes Eyes: Denies eye discharge, Denies dry eyes, Denies irritation and Denies itchy eyes ENT Ears, Nose, Mouth, and Throat: Denies epistaxis, Denies facial pain, Denies lip swelling and Denies throat swelling *Cardiovascular Cardiovascular: Reports dyspnea, Reports dyspnea on exertion, Reports edema and Reports leg edema *Respiratory Respiratory: Denies change in phlegm color, Reports chest congestion, Reports cough, Reports dyspnea, Reports dyspnea on exertion, Denies excessive phlegm production, Denies hemoptysis, Denies pain on inspiration, Denies pain with cough and Denies wheezing *Gastrointestinal Gastrointestinal: Denies abdominal pain, Denies belching and Denies cramping *Musculoskeletal Musculoskeletal: Reports back pain, Reports myalgias and Reports other (No small joint swelling or Pain) *Neurologic Neurologic: Reports as per HPI and Reports weakness Psychiatric Psychiatric: Denies homicidal ideation and Denies suicidal ideation Endocrine Endocrine: Reports fatigue and Denies heat intolerance Hematologic/Lymphatic Hematologic/Lymphatic: Denies easy bleeding and Denies lymphadenopathy Allergic/Immunologic Allergic/Immunologic: Denies itchy eyes, Denies lip swelling, Denies throat swelling and Denies wheezing Pulmonology Exam Inpatient Vital signs and Labs for Last 24 Hours: Temp Pulse Resp BP Pulse Ox O2 Del Method O2 Flow Rate 98.0 F 90 27 H 106/56 L 94 L Vapotherm 30 09/06/24 08:00 09/06/24 08:00 09/06/24 07:00 09/06/24 08:00 09/06/24 08:00 09/06/24 08:00 09/06/24 08:00 FiO2 50 09/06/24 07:00 Laboratory Results - last 24 hr 09/05/24 21:18: VBG pH 7.41, VBG pCO2 33.6 L, VBG pO2 36.1, VBG HCO3 20.7 L, VBG Total CO2 21.8 L, VBG O2 Saturation 65.2, VBG Base Excess -3.9 L, VBG Lactic Acid 3.3 H 09/05/24 21:19: WBC 32.4 H*, RBC 5.52 H, Hgb 10.6 L, Hct 37.7, MCV 68.3 L, MCH 19.2 L, MCHC 28.1 L, RDW 18.5 H, Plt Count 562 H, MPV 10.6 H, Neut % (Auto) 92.5 H, Lymph % (Auto) 2.8 L, [place] % (Auto) 3.2, Eos % (Auto) 0.0 L, Baso % (Auto) 0.2, Neut # (Auto) 30.0 H, Lymph # (Auto) 0.9, [place] # (Auto) 1.1 H, Eos # (Auto) 0.0, Baso # (Auto) 0.1, Total Counted 100, Neutrophils % (Manual) 90 H, L ymphocytes % (Manual) 8 L, Monocytes % (Manual) 2, Platelet Estimate Normal, RBC Morphology Normal, Sodium 129 L, Potassium 4.4, Chloride 98, Carbon Dioxide 22, Anion Gap 13.4, BUN 15, Creatinine 0.90, Estimated Creat Clear 85, Estimated GFR 69, Est GFR ( Amer) 83, Glucose 158 H, Calcium 8.9, Total Bilirubin 2.4 H , AST 123 H, ALT 86 H, Alkaline Phosphatase 99, Troponin I 0.19 H, NT-Pro-B Natriuret Pep > 47183 H, Total Protein 7.8, Albumin 4.1, Globulin 3.7 H, Albumin/Globulin Ratio 1.1, HCG, Quant < 2 09/05/24 22:50: Chlamy pneumoniae PCR Not detected, Adenovirus (PCR) Not detected, B. pertussis DNA (PCR) Not detected, Coronavirus OC43 (PCR) Not detected, Coronavirus HKU1 (PCR) Not detected, Coronavirus 229E (PCR) Not detected, SARS-CoV-2 (PCR) Not detected, Coronavirus NL63 (PCR) Not detected, Human Metapneumovir PCR Not detected, Influenza A (H1) PCR Not detected, Influ A (H1N1/09) PCR Not detected, Influenza A (H3) PCR Not detected, Influenza Type A (PCR) Not detected, Influenza Type B (PCR) Not detected, M. pneumoniae (PCR) Not detected, Parainfluenza 1 (PCR) Not detected, Parainfluenza 2 (PCR) Not detected, Parainfluenza 3 (PCR) Not detected, Parainfluenza 4 (PCR) Not detected, RSV (PCR) Not detected, Entero/Rhino (PCR) Not detected 09/06/24 01:03: Troponin I 0.22 H 09/06/24 01:07: POC Glucose 138 H 09/06/24 03:38: Sodium 130 L, Potassium 3.4 L D, Chloride 98, Carbon Dioxide 25, Anion Gap 10.4, BUN 16, Creatinine 0.80, Estimated Creat Clear 92, Estimated GFR 79, Est GFR ( Amer) 95, Glucose 173 H, Lactate 2.1, Calcium 8.5, M agnesium 1.5 L, Troponin I 0.25 H 09/06/24 05:37: WBC 21.6 H* D, RBC 4.80, Hgb 9.5 L D, Hct 32.6 L, MCV 67.9 L, M CH 19.8 L, MCHC 29.1 L, RDW 17.4, Plt Count 489 H, MPV 10.3, Neut % (Auto) 94.7 H, Lymph % (Auto) 3.1 L, [place] % (Auto) 0.9 L, Eos % (Auto) 0.0 L, Baso % (Auto) 0.2, Neut # (Auto) 20.5 H, Lymph # (Auto) 0.7, [place] # (Auto) 0.2, Eos # (Auto) 0.0, Baso # (Auto) 0.1, Total Counted 100, Neutrophils % (Manual) 97 H, L ymphocytes % (Manual) 2 L, Monocytes % (Manual) 1 L, Platelet Estimate Slight increase, Hypochromasia 2+, Microcytosis 1+, Sodium 134 L, Potassium 3.3 L, Chloride 101, Carbon Dioxide 26, Anion Gap 10.3, BUN 16, Creatinine 0.90, Estimated Creat Clear 82, Estimated GFR 69, Est GFR ( Amer) 83, Glucose 197 H, Lactate 1.9, Calcium 8.7, Magnesium 1.6, Total Bilirubin 1.9 H, AST 122 H , ALT 100 H, Alkaline Phosphatase 106, Total Protein 6.2 L, Albumin 3.3 L D, Globulin 2.9, Albumin/Globulin Ratio 1.1, Triglycerides 79, Cholesterol 59 L, L DL Cholesterol Direct < 30.0 L, VLDL Cholesterol 16, HDL Cholesterol 27 L, Cholesterol/HDL Ratio 2.2, Vitamin B12 907, Folate 11.10 09/06/24 05:46: Specimen Source Right radial, O2 % 30l 70%, ABG pH 7.48 H, ABG pCO2 32.4 L, ABG pO2 128.5 H, ABG HCO3 23.5, ABG Total CO2 24.5, ABG O2 Saturation 99, ABG Base Excess -0.1, Dannie Test Acceptable 09/06/24 06:08: POC Glucose 208 H I & O for Labs for Last 24 Hours: Intake & Output 09/03/24 09/04/24 09/05/24 09/06/24 23:59 23:59 23:59 23:59 Intake Total 62.261 / 62.261 Output Total 5800 / 5800 Balance -5737.739 / -5737.739 Weight 380 lb 392 lb 13.82 oz Constitutional: Present severe distress and morbidly obese Head: Present normocephalic and atraumatic ENT: Present normal exam, normal oropharynx and mucous membranes moist Neck: Present normal inspection and full ROM Respiratory: Present prolonged expiratory phase, respiratory distress, crackles, diminished air movement and able to speak in complete sentences Cardiac: Present S1/S2, Tachycardia and radial pulses present GI: Present soft and distention; Absent tenderness or guarding Rectal (female): Present deferred (female): Present deferred Skin: Present intact; Absent cyanosis or jaundice Neuro: Absent alert, awake or oriented x 3 Extremities: Present normal inspection; Absent clubbing or cyanosis Psychiatric: Present normal affect and cooperative Meds Home Medications and Allergies Home Medications ?Medication ?Instructions ?Recorded ?Confirmed ?Type cholecalciferol (vitamin D3) 50 50 mcg PO DAILY #30 ca ps 01/06/24 09/06/24 Rx mcg (2,000 unit) capsule hydrochlorothiazide 25 mg tablet 25 mg PO DAILY #30 ta bs 04/20/24 09/06/24 Rx lisinopril 10 mg tablet 10 mg PO DAILY #30 tabs 06/1109/06/24 Rx albuterol sulfate 90 mcg/actuation 2 puff inhalation Q 4-6H PRN 09/06/24 09/06/24 History aerosol inhaler Shortness Of Breath cholecalciferol (vitamin D3) 1,250 1,250 mcg PO WEEKLY 09/06/24 09/06/24 History mcg (50,000 unit) capsule ferrous sulfate 325 mg (65 mg 325 mg PO DAILY 09/06/24 09/06/24 History iron) tablet (FeroSul) New Prescriptions to Start Prescriptions: Allergies Allergy/AdvReac Type Severity Reaction Status Date / Time codeine (CODEINE) Allergy Mild I-RASH Verified 07/21/24 13:14 Results Laboratory Findings 09/06/24 05:37 09/06/24 05:37 ABG ABG pH 7.48 mmol/L (7.35-7.45) H 09/06/24 05:46 ABG pCO2 32.4 mmhg (35.0-45.0) L 09/06/24 05:46 ABG pO2 128.5 mmhg (80-100) H 09/06/24 05:46 ABG O2 Saturation 99 % (90-100) 09/06/24 05:46 Abnormal lab findings: Abnormal Labs 09/05/24 09/05/24 09/06/24 21:18 21:19 01:03 WBC 32.4 H* RBC 5.52 H Hgb 10.6 L Hct MCV 68.3 L MCH 19.2 L MCHC 28.1 L RDW 18.5 H Plt Count 562 H MPV 10.6 H Neut % (Auto) 92.5 H Lymph % (Auto) 2.8 L [place] % (Auto) Eos % (Auto) 0.0 L Neut # (Auto) 30.0 H [place] # (Auto) 1.1 H Neutrophils % (Manual) 90 H Lymphocytes % (Manual) 8 L Monocytes % (Manual) ABG pH ABG pCO2 ABG pO2 VBG pCO2 33.6 L VBG HCO3 20.7 L VBG Total CO2 21.8 L VBG Base Excess -3.9 L VBG Lactic Acid 3.3 H Sodium 129 L Potassium Glucose 158 H POC Glucose Magnesium Total Bilirubin 2.4 H AST 123 H ALT 86 H Troponin I 0.19 H 0.22 H NT-Pro-B Natriuret Pep > 69745 H Total Protein Albumin Globulin 3.7 H Cholesterol LDL Cholesterol Direct HDL Cholesterol 09/06/24 09/06/24 09/06/24 01:07 03:38 05:37 WBC 21.6 H* D RBC Hgb 9.5 L D Hct 32.6 L MCV 67.9 L MCH 19.8 L MCHC 29.1 L RDW Plt Count 489 H MPV Neut % (Auto) 94.7 H Lymph % (Auto) 3.1 L [place] % (Auto) 0.9 L Eos % (Auto) 0.0 L Neut # (Auto) 20.5 H [place] # (Auto) Neutrophils % (Manual) 97 H Lymphocytes % (Manual) 2 L Monocytes % (Manual) 1 L ABG pH ABG pCO2 ABG pO2 VBG pCO2 VBG HCO3 VBG Total CO2 VBG Base Excess VBG Lactic Acid Sodium 130 L 134 L Potassium 3.4 L D 3.3 L Glucose 173 H 197 H POC Glucose 138 H Magnesium 1.5 L Total Bilirubin 1.9 H AST 122 H ALT 100 H Troponin I 0.25 H NT-Pro-B Natriuret Pep Total Protein 6.2 L Albumin 3.3 L D Globulin Cholesterol 59 L LDL Cholesterol Direct < 30.0 L HDL Cholesterol 27 L 09/06/24 09/06/24 05:46 06:08 WBC RBC Hgb Hct MCV MCH MCHC RDW Plt Count MPV Neut % (Auto) Lymph % (Auto) [place] % (Auto) Eos % (Auto) Neut # (Auto) [place] # (Auto) Neutrophils % (Manual) Lymphocytes % (Manual) Monocytes % (Manual) ABG pH 7.48 H ABG pCO2 32.4 L ABG pO2 128.5 H VBG pCO2 VBG HCO3 VBG Total CO2 VBG Base Excess VBG Lactic Acid Sodium Potassium Glucose POC Glucose 208 H Magnesium Total Bilirubin AST ALT Troponin I NT-Pro-B Natriuret Pep Total Protein Albumin Globulin Cholesterol LDL Cholesterol Direct HDL Cholesterol Assessment and Plan *Assessment and plan (1) Pulmonary edema: Status: Acute Qualifiers: Chronicity: acute Qualified Code(s): J81.0 - Acute pulmonary edema Category: Medical Code(s): J81.1 - Chronic pulmonary edema (2) Acute hypoxic respiratory failure: Status: Acute Category: Medical Code(s): J96.01 - Acute respiratory failure with hypoxia (3) Pulmonary embolism: Status: Acute Category: Medical Code(s): I26.99 - Other pulmonary embolism without acute cor pulmonale Plan Ms. Painting is a 44-year-old female with reported history of tobacco abuse hypertension asthma presented to the ER with worsening respiratory distress cough found to be needing new oxygen requirements and pulmonary was called for further evaluation and management. Current smoker greater than [id number] smoking history not using any oxygen supplementation at baseline. Low-grade fevers at 101.8. Neutrophilic predominant leukocytosis upon admission. Comprehensive respiratory viral PCR panel negative Blood gas upon admission did not show any hypoxic/hypercarbic respiratory failure, arterial, pH of 7.48 and pCO2 32.4 and a PO2 128.5 CT chest upon admission bilateral groundglass opacity and septal thickening concerning for volume overload/pulmonary edema. Dilated right ventricle. Concern for right lower lobe segmental/subsegmental pulmonary embolism. Currently on milrinone and Zosyn. Plan: F/U VBG Continue oxygen supplementation to maintain O2 saturation of 90% and above, wean to 25 L 35%, continue to wean as tolerated Initiate full dose anticoagulation for right lower lobe subsegmental pulmonary embolism. Case discussed with [facility] Dr. Sanchez. Awaiting final over read by FRANCISCA Rader every 6 hours scheduled basis Evaluate for further possible sources of her sepsis at this point of time given CT did not show any evidence of consolidative/airspace changes. Antibiotic management as per primary team. Volume optimization as per primary team and cardiology. # Thank you for involving pulmonary in this patient care. Will continue to follow.
[2024-09-06 09:53] LABS: Ferritin 12.9 ng/ml (6.24-137); Iron 22 ug/dL (37-170); Thyroid Stimulating Hormone 0.24 uIU/mL (0.465-4.68); Total Iron Binding Capacity 373 ug/dL (265-497)
[2024-09-06 09:59] LABS: Microscopic, Urine URINE MICROSCOPIC (MICROSCOPIC)
--- NOTE | 2024-09-06 10:04 | CA_ITS ---
FINAL REPORT CLINICAL HISTORY: edema bilateral lower extremities, pneumonia/sepsis, SOB, PE, morbid obesity COMPARISON: None FINDINGS: Multiple transverse and longitudinal scans were performed of the femoral popliteal deep venous system, with augmentation and compression maneuvers. Normal phasic flow was noted in the visualized deep venous system. No intraluminal increased echogenicity is noted to suggest thrombus. There is normal compression and augmentation of the venous structures. No abnormal venous collaterals are seen. Examination of the calves is slightly limited secondary to patient's size. IMPRESSION: No evidence of deep venous thrombosis of the bilateral lower extremities. Reviewed, Interpreted and Dictated by Damian Sanchez MD Transcribed by Alberta Chase Authenticated and [facility]
[2024-09-06 10:07] LABS: Bilirubin,Urine Negative (Negative); Color,Urine YELLOW (Yellow); Glucose,Urine (UA) Negative (Negative); Ketones,Urine Negative (Negative); Leukocyte Esterase,Urine Negative (Negative); PH,Urine 5.5 (5.0-8.5); Protein,Urine Negative (Negative); Specific Gravity, Urine 1.010 (1.005-1.030); Urobilinogen,Urine 0.2 EU/dl (0.2)
--- NOTE | 2024-09-06 10:18 | HMH.PTWOUND ---
Rehab Inpt Wound Evaluation Rehab IP Wound Evaluation Start: 09/06/24 04:26 Freq: ONCE Status: Active Protocol: Document 09/06/24 10:03 JAKE (Rec: 09/06/24 10:18 JAKE [id number]) Rehab PT Wound Assessment Subjective Subjective 44-year-old female with past medical history of hypertension, asthma, chronic smoker, methamphetamine use who presents emergency department for evaluation of cough and shortness of breath. Onset was acute, over the last 3 days. She smoked a pack a day until 3 days ago when she developed a cough and shortness of breath generally feeling unwell. Upon EMS arrival she was saturating 86% which went up to the mid 90s on nonrebreather. Patient was given an albuterol treatment prior to arrival. She denies chest pain. No other interventions prehospital. No other acute complaints at this time. Pt presented upon admission with multiple small wounds to B lower legs. Wound Left Anterior [place] Wound Type Stasis Ulcer Is This a Chronic Yes Wound Wound Length (cm) 1.0 Wound Width (cm) 1.0 Wound Depth (cm) 0.1 Wound Bed Appearance [place] Surrounding Tissue Bright Red Appearance Edema Type Pitting Edema Degree 1+ Query Text:1+ Trace, Barely Detectable, Rebound 15-30 seconds 2+ Moderate, Slight Indentation, Rebound 10-20 seconds 3+ Deep, Deeper Indentation, Rebound > 30 seconds 4+ Very Deep, Rebound > 60 seconds Edema Appearance Puffy Wound Drainage Serous Description Drainage Amount Scant Dressing Change Tolerated Well Patient Tolerance Plan/Recommendation Comment ~5 other wounds of similar or smaller size noted between anterior B lower legs at this time with moderate erythema noted. No current need for debridement and wounds have very little serous drainage at this time. [place] [facility] [place] and consensus is to allow wounds to remain uncovered or lightly covered with non-adherent dressing unless drainage increases. Eval Complexity Eval Charge Codes 45526 - Moderate Complexity PHYSICIAN CERTIFICATION: I certify the specified therapy services for Lian Painting are required, authorized, and reviewed every 30 days.
[2024-09-06 10:32] LABS: Bacteria,Urine Trace /lpf; Hyaline Casts,Urine OCC #/lpf (0); RBC,Urine Occasional #/hpf (0-3); WBC,Urine Occasional #/hpf (0-3)
--- NOTE | 2024-09-06 10:43 | EXP.CARD.CON ---
History of Present Illness History of Present Illness Consult date: 09/06/24 Requesting physician: Jt Goodman Consult reason: shortness of breath Chief complaint: SOB History of present illness: This is a 44-year-old white female presented to the emergency department with complaints of shortness of breath. The patient states that she has been having swelling in her bilateral lower extremity for months and then started feeling short of breath approximately 3 days prior to admission. She states that the shortness of breath got severe and she just did not feel good. Her shortness of breath is associated with a nonproductive cough. She was very weak and fatigued and that her whole entire body just ache. She has a past medical history of hypertension, asthma, chronic smoker, history of methamphetamine user and abnormal cardiac testing at the beginning of the year. The patient had never made it to any of her cardiology appointments to follow-up on these abnormal cardiac tests. Upon arrival to the emergency department she was satting 86% on a nonrebreather. Bedside echocardiogram showed an ejection fraction of 20%. Previous EF was around 40% on echocardiogram and cardiac MRI at the beginning of the year. She also has an abnormal stress test from the beginning of the year for which she never followed up on. The patient was started on IV Lasix and milrinone. She has a -5 L overnight. She is still complaining of shortness of breath and seems pretty lethargic today. She denies any chest pain or pressure. She denies any chills, nausea, vomiting, diarrhea. She does have orthopnea associated with her shortness of breath. The patient's BNP is greater than 30,000 and her troponin is elevated consistent with a non-STEMI. She has elevated liver enzymes which is most likely from hepatic congestion. The patient has an elevated white blood cell count and had fevers through the night. She is currently being treated for with IV antibiotics. [facility] Disclaimer: The information contained in this section may have been updated after the patient was seen, as this information can be updated by other users. Medical History (Updated 09/06/24 @ 12:28 by Rosa Vanegas MD) Pulmonary embolism Elevated liver enzymes Elevated white blood cell count Pneumonia Abnormal cardiovascular stress test Non-STEMI (non-ST elevated myocardial infarction) Pulmonary edema Cardiomyopathy Acute on chronic HFrEF (heart failure with reduced ejection fraction) Peripheral vascular disease Abscess Sinusitis Erythema nodosum Bronchitis Cellulitis Tennis elbow Nausea and vomiting Acute bronchitis Gastroenteritis Cardiomegaly Restless sleeper Daytime somnolence Snoring HTN (hypertension) History of asthma Edema Tobacco dependence syndrome Dyspnea Surgical History History of placement of ear tubes History of 2 sections History of tonsillectomy and adenoidectomy Social History (Updated 09/06/24 @ 01:06 by Brandie Bronson RN) Smoking Status: Current every day smoker tobacco type: cigarettes packs per day: 1 how long ago did patient quit smoking: one month second hand exposure: No alcohol intake: former substance use type: denies use current occupational status: employed and disabled Travel in the last 8 weeks?: None housing: house caffeine: No Have you lived/traveled outside [place] in past 30 days?: No Contact w/someone who lives/traveled outside [place] past 30 days?: No Exposure to someone with infectious disease in past 14 days?: No Do you have a fever (greater than 100.4 F or 38 C)?: Yes Have you tested positive for COVID-19?: No Exposed to someone with COVID-19 in past 14 days?: No Do you have a sore throat?: No Do you have a cough?: Yes Do you have any weakness?: Yes Are you experiencing any nausea/vomitting?: No Do you have any diarrhea?: No Are you experiencing any unusual bleeding?: No Do you have any muscle aches/pain?: No Do you have any abdominal pain?: No Are you experiencing loss of taste or smell?: No Review of Systems Review of Systems Review of systems:: pertinent systems reviewed and negative unless documented below Constitutional Constitutional: Reports system reviewed and no additional complaints, except as documented, Reports fatigue, Reports fever(s), Reports lethargy, Reports malaise, Reports weakness and Reports weight gain Eyes Eyes: Reports system reviewed and no additional complaints, except as documented ENT Ears, Nose, Mouth, and Throat: Reports system reviewed and no additional complaints, except as documented *Cardiovascular Cardiovascular: Reports system reviewed and no additional complaints, except as documented, Denies chest pain, Reports dyspnea, Reports dyspnea on exertion, Reports edema, Reports leg edema and Reports pedal edema *Respiratory Respiratory: Reports system reviewed and no additional complaints, except as documented, Reports chest congestion, Reports cough, Reports dyspnea and Reports dyspnea on exertion *Gastrointestinal Gastrointestinal: Reports system reviewed and no additional complaints, except as documented *Genitourinary Genitourinary: Reports system reviewed and no additional complaints, except as documented *Musculoskeletal Musculoskeletal: Reports system reviewed and no additional complaints, except as documented Integumentary/Breasts Skin/Breast: Reports system reviewed and no additional complaints, except as documented *Neurologic Neurologic: Reports system reviewed and no additional complaints, except as documented, Reports as per HPI and Reports weakness Psychiatric Psychiatric: Reports system reviewed and no additional complaints, except as documented Endocrine Endocrine: Reports system reviewed and no additional complaints, except as documented and Reports fatigue Hematologic/Lymphatic Hematologic/Lymphatic: Reports system reviewed and no additional complaints, except as documented Allergic/Immunologic Allergic/Immunologic: Reports system reviewed and no additional complaints, except as documented Exam Data for Last 24 hours Vital signs and Labs for Last 24 Hours: Temp Pulse Resp BP Pulse Ox O2 Del Method O2 Flow Rate 98.0 F 83 13 127/74 92 L Vapotherm 30 09/06/24 08:00 09/06/24 10:15 09/06/24 10:15 09/06/24 10:15 09/06/24 10:15 09/06/24 10:15 09/06/24 09:00 FiO2 50 09/06/24 07:00 Laboratory Results - last 24 hr 09/05/24 21:18: VBG pH 7.41, VBG pCO2 33.6 L, VBG pO2 36.1, VBG HCO3 20.7 L, VBG Total CO2 21.8 L, VBG O2 Saturation 65.2, VBG Base Excess -3.9 L, VBG Lactic Acid 3.3 H 09/05/24 21:19: WBC 32.4 H*, RBC 5.52 H, Hgb 10.6 L, Hct 37.7, MCV 68.3 L, MCH 19.2 L, MCHC 28.1 L, RDW 18.5 H, Plt Count 562 H, MPV 10.6 H, Neut % (Auto) 92.5 H, Lymph % (Auto) 2.8 L, [place] % (Auto) 3.2, Eos % (Auto) 0.0 L, Baso % (Auto) 0.2, Neut # (Auto) 30.0 H, Lymph # (Auto) 0.9, [place] # (Auto) 1.1 H, Eos # (Auto) 0.0, Baso # (Auto) 0.1, Total Counted 100, Neutrophils % (Manual) 90 H, Lymphocytes % (Manual) 8 L, Monocytes % (Manual) 2, Platelet Estimate Normal, RBC Morphology Normal, Sodium 129 L, Potassium 4.4, Chloride 98, Carbon Dioxide 22, Anion Gap 13.4, BUN 15, Creatinine 0.90, Estimated Creat Clear 85, Estimated GFR 69, Est GFR ( Amer) 83, Glucose 158 H, Calcium 8.9, Total Bilirubin 2.4 H, AST 123 H, ALT 86 H, Alkaline Phosphatase 99, Troponin I 0.19 H, NT-Pro-B Natriuret Pep > 50998 H, Total Protein 7.8, Albumin 4.1, Globulin 3.7 H, Albumin/Globulin Ratio 1.1, HCG, Quant < 2 09/05/24 22:50: Chlamy pneumoniae PCR Not detected, Adenovirus (PCR) Not detected, B. pertussis DNA (PCR) Not detected, Coronavirus OC43 (PCR) Not detected, Coronavirus HKU1 (PCR) Not detected, Coronavirus 229E (PCR) Not detected, SARS-CoV-2 (PCR) Not detected, Coronavirus NL63 (PCR) Not detected, Human Metapneumovir PCR Not detected, Influenza A (H1) PCR Not detected, Influ A (H1N1/09) PCR Not detected, Influenza A (H3) PCR Not detected, Influenza Type A (PCR) Not detected, Influenza Type B (PCR) Not detected, M. pneumoniae (PCR) Not detected, Parainfluenza 1 (PCR) Not detected, Parainfluenza 2 (PCR) Not detected, Parainfluenza 3 (PCR) Not detected, Parainfluenza 4 (PCR) Not detected, RSV (PCR) Not detected, Entero/Rhino (PCR) Not detected 09/06/24 01:03: Troponin I 0.22 H 09/06/24 01:07: POC Glucose 138 H 09/06/24 03:38: Sodium 130 L, Potassium 3.4 L D, Chloride 98, Carbon Dioxide 25, Anion Gap 10.4, BUN 16, Creatinine 0.80, Estimated Creat Clear 92, Estimated GFR 79, Est GFR ( Amer) 95, Glucose 173 H, Lactate 2.1, Calcium 8.5, Magnesium 1.5 L, Troponin I 0.25 H 09/06/24 05:37: WBC 21.6 H* D, RBC 4.80, Hgb 9.5 L D, Hct 32.6 L, MCV 67.9 L, MCH 19.8 L, MCHC 29.1 L, RDW 17.4, Plt Count 489 H, MPV 10.3, Neut % (Auto) 94.7 H, Lymph % (Auto) 3.1 L, [place] % (Auto) 0.9 L, Eos % (Auto) 0.0 L, Baso % (Auto) 0.2, Neut # (Auto) 20.5 H, Lymph # (Auto) 0.7, [place] # (Auto) 0.2, Eos # (Auto) 0.0, Baso # (Auto) 0.1, Total Counted 100, Neutrophils % (Manual) 97 H, Lymphocytes % (Manual) 2 L, Monocytes % (Manual) 1 L, Platelet Estimate Slight increase, Hypochromasia 2+, Microcytosis 1+, Sodium 134 L, Potassium 3.3 L, Chloride 101, Carbon Dioxide 26, Anion Gap 10.3, BUN 16, Creatinine 0.90, Estimated Creat Clear 82, Estimated GFR 69, Est GFR ( Amer) 83, Glucose 197 H, Lactate 1.9, Calcium 8.7, Magnesium 1.6, Iron 22 L, TIBC 373, Iron Saturation 5.53933 L, Ferritin 12.9, Total Bilirubin 1.9 H, AST 122 H, ALT 100 H, Alkaline Phosphatase 106, Total Protein 6.2 L, Albumin 3.3 L D, Globulin 2.9, Albumin/Globulin Ratio 1.1, Triglycerides 79, Cholesterol 59 L, LDL Cholesterol Direct < 30.0 L, VLDL Cholesterol 16, HDL Cholesterol 27 L, Cholesterol/HDL Ratio 2.2, Vitamin B12 907, Folate 11.10, TSH 0.24 L, Free T4 1.47 09/06/24 05:46: Specimen Source Right radial, O2 % 30l 70%, ABG pH 7.48 H, ABG pCO2 32.4 L, ABG pO2 128.5 H, ABG HCO3 23.5, ABG Total CO2 24.5, ABG O2 Saturation 99, ABG Base Excess -0.1, Dannie Test Acceptable 09/06/24 06:08: POC Glucose 208 H 09/06/24 09:50: Urine Color Yellow, Urine Appearance Clear, Urine pH 5.5, Ur Specific [place] 1.010, Urine Protein Negative, Urine Glucose (UA) Negative, Urine Ketones Negative, Urine Blood Negative, Urine Nitrate Negative, Urine Bilirubin Negative, Urine Urobilinogen 0.2, Ur Leukocyte Esterase Negative, Urine RBC Occasional, Urine WBC Occasional, Urine Bacteria Trace, Hyaline Casts Occ I & O for Last 24 hours: Intake & Output 09/03/24 09/04/24 09/05/24 09/06/24 23:59 23:59 23:59 23:59 Intake Total 760.261 / 760.261 Output Total 6500 / 6500 Balance -5739.739 / -5739.739 Weight 380 lb 392 lb 13.82 oz Constitutional Constitutional: no acute distress, morbidly obese and chronically ill appearing *Routine HEENT Exam Head: Present normocephalic and atraumatic ENT: Present mucous membranes moist *Routine Neck Exam Neck: Present supple, full ROM and normal carotid upstroke; Absent JVD, carotid bruit or lymphadenopathy *Routine Respiratory Exam Respiratory: Present rales, rhonchi, crackles, diminished air movement and symmetric chest movement *Routine Cardiovascular Exam Cardiovascular: Present RRR, Normal S1 and Normal S2; Absent murmur or gallop *Routine Abdominal Exam Abdominal: Present soft and normoactive bowel sounds; Absent tenderness, distended or organomegaly *Routine Extremities Exam Extremities: Present full ROM, pulses intact and normal capillary refill; Absent cyanosis, clubbing or edema *Routine Skin Exam Skin: Present intact and warm; Absent erythema *Routine Neurological Exam Neurological: Present alert, oriented X3 and CN II-XII intact; Absent sensory deficit or motor deficit Routine Psychiatric Exam Psychiatric: Present normal affect Meds Home Medications and Allergies Home Medications ?Medication ?Instructions ?Recorded ?Confirmed ?Type cholecalciferol (vitamin D3) 50 50 mcg PO DAILY #30 caps 01/06/24 09/06/24 Rx mcg (2,000 unit) capsule hydrochlorothiazide 25 mg tablet 25 mg PO DAILY #30 tabs 04/20/24 09/06/24 Rx lisinopril 10 mg tablet 10 mg PO DAILY #30 tabs 07/21/24 09/06/24 Rx albuterol sulfate 90 mcg/actuation 2 puff inhalation Q4-6H PRN 09/06/24 09/06/24 History aerosol inhaler Shortness Of Breath cholecalciferol (vitamin D3) 1,250 1,250 mcg PO WEEKLY 09/06/24 09/06/24 History mcg (50,000 unit) capsule ferrous sulfate 325 mg (65 mg 325 mg PO DAILY 09/06/24 09/06/24 History iron) tablet (FeroSul) New Prescriptions to Start Prescriptions: Allergies Allergy/AdvReac Type Severity Reaction Status Date / Time codeine (CODEINE) Allergy Mild I-RASH Verified 07/21/24 13:14 Assessment and Plan *Assessment and plan (1) Acute on chronic HFrEF (heart failure with reduced ejection fraction): Status: Acute Category: Medical Code(s): I50.23 - Acute on chronic systolic (congestive) heart failure (2) Cardiomyopathy: Status: Acute Qualifiers: Cardiomyopathy type: dilated Qualified Code(s): I42.0 - Dilated cardiomyopathy Category: Medical Code(s): I42.9 - Cardiomyopathy, unspecified (3) Pulmonary edema: Status: Acute Qualifiers: Chronicity: acute Qualified Code(s): J81.0 - Acute pulmonary edema Category: Medical Code(s): J81.1 - Chronic pulmonary edema (4) Non-STEMI (non-ST elevated myocardial infarction): Status: Acute Category: Medical Code(s): I21.4 - Non-ST elevation (NSTEMI) myocardial infarction (5) Elevated troponin: Status: Acute Category: Medical Code(s): R79.89 - Other specified abnormal findings of blood chemistry (6) Acute hypoxic respiratory failure: Status: Acute Category: Medical Code(s): J96.01 - Acute respiratory failure with hypoxia (7) Respiratory failure with hypoxia: Status: Acute Qualifiers: Chronicity: acute on chronic Qualified Code(s): J96.21 - Acute and chronic respiratory failure with hypoxia Category: Medical Code(s): J96.91 - Respiratory failure, unspecified with hypoxia (8) HTN (hypertension): Status: Chronic Qualifiers: Hypertension type: essential hypertension Qualified Code(s): I10 - Essential (primary) hypertension Category: Medical Code(s): I10 - Essential (primary) hypertension (9) Edema: Status: Chronic Qualifiers: Edema type: unspecified Qualified Code(s): R60.9 - Edema, unspecified Category: Medical Code(s): R60.9 - Edema, unspecified (10) Tobacco dependence syndrome: Status: Chronic Category: Medical Code(s): F17.200 - Nicotine dependence, unspecified, uncomplicated (11) Obesity: Status: Acute Qualifiers: Obesity classification: adult class 3 (BMI >= 40) Obesity type: unspecified obesity type Qualified Code(s): E66.813 - Obesity, class 3; Z68.41 - Body mass index [BMI] 40.0-44.9, adult Category: Medical Code(s): E66.9 - Obesity, unspecified (12) SOB (shortness of breath): Status: Acute Category: Medical Code(s): R06.02 - Shortness of breath (13) Abnormal cardiovascular stress test: Status: Acute Category: Medical Code(s): R94.39 - Abnormal result of other cardiovascular function study (14) Pneumonia: Status: Acute Qualifiers: Laterality: unspecified laterality Lung location: unspecified part of lung Pneumonia type: due to unspecified organism Qualified Code(s): J18.9 - Pneumonia, unspecified organism Category: Medical Code(s): J18.9 - Pneumonia, unspecified organism (15) Elevated white blood cell count: Status: Acute Qualifiers: Leukocytosis type: unspecified Qualified Code(s): D72.829 - Elevated white blood cell count, unspecified Category: Medical Code(s): D72.829 - Elevated white blood cell count, unspecified (16) Elevated liver enzymes: Status: Acute Category: Medical Code(s): R74.8 - Abnormal levels of other serum enzymes Plan Plan: 1. The patient was admitted to the hospital and found to have acute on chronic HFrEF. Her BNP is greater than 30,000. Bedside echocardiogram shows her EF is down to 20% from around 40% at the beginning of the year. She is being diuresed with IV Lasix and a milrinone drip. She has a -5 L this morning. Will continue the Lasix and milrinone at this time. Continue spironolactone for diuresis. 2. Repeat echocardiogram has been ordered to see what her EF is officially at this time. 3. The patient does have an elevated white blood cell count and had a fever overnight of 101.8. She is being treated with IV antibiotics for pneumonia. Will defer to the hospitalist and pulmonology. 4. The patient does have an elevated troponin consistent with a non-STEMI. She had an abnormal Myoview in March 2024 showing a fixed defect as well as reversible ischemia. She will need left cardiac catheterization at some point during this hospitalization once her pneumonia and CHF have improved. Her abnormal stress test is very concerning for ischemic cardiomyopathy. 5. Continue aspirin 81 mg daily and Lovenox for her acute coronary syndrome. 6. The patient does have elevated liver enzymes which is most likely hepatic congestion from her acute on chronic HFrEF. Will continue to follow. 7. Her blood pressure is well-controlled. 8. Her LDL goal is less than 55. Her LDL is less than 30. 9. Further recommendations were made pending the patient's response to treatment. Thank you for the opportunity to help participate in the care of this patient. Our recommendations and orders are per Dr. Fisher. Addendum: Echocardiogram shows an ejection fraction of 50%, which is likely elevated because she is on a milrinone drip at the time of her imaging. Continue IV milrinone and IV Lasix overnight. Stop the milrinone drip at midnight tonight. Then repeat limited echocardiogram in the morning to see what her ejection fraction is off of the milrinone.
--- NOTE | 2024-09-06 10:48 | P.PN_ITS ---
Subjective *Date: 09/06/24 *Time: 15:04 Interval history: Patient is sitting up in bed, resting with her eyes closed. She is arousable to speech and she states that she feels better. Output has been approximately 6 L since admission. She is currently still on the milrinone drip per cardiology. Pulmonology consulted, CTA shows PE, patient started on therapeutic Lovenox dosing. Patient remains on Vapotherm, weaning as tolerated. She does state that her shortness of breath has greatly improved. Cardiology consulted, repeat echo in the morning. Medical Exam Vital signs and Labs for Last 24 Hours: Vital Signs Temp Pulse Pulse Resp BP BP Pulse Ox 09/06/24 10:15 83 13 127/74 92 L 09/06/24 10:15 127/74 09/06/24 10:00 113/63 09/06/24 10:00 83 16 98 09/06/24 09:45 79 16 94 L 09/06/24 09:45 115/64 09/06/24 09:30 98 H 15 97 09/06/24 09:30 92/66 L 09/06/24 09:16 83 16 98 09/06/24 09:16 95/58 L 09/06/24 09:15 53 L 16 98 09/06/24 09:00 80 15 125/67 95 09/06/24 09:00 125/67 09/06/24 08:45 82 14 95 09/06/24 08:45 111/56 L 09/06/24 08:31 108/69 L 09/06/24 08:31 99 H 17 97 09/06/24 08:30 97 H 13 96 09/06/24 08:15 106/56 L 09/06/24 08:15 86 18 94 L 09/06/24 08:00 87 14 98 09/06/24 08:00 127/69 09/06/24 08:00 98.0 F 90 106/56 L 94 L 09/06/24 07:45 121/71 09/06/24 07:45 93 H 14 99 09/06/24 07:30 86 17 94 L 09/06/24 07:30 109/62 L 09/06/24 07:15 89 20 90 L 09/06/24 07:15 114/57 L 09/06/24 07:00 09/06/24 07:00 96 H 27 H 116/54 L 90 L 09/06/24 06:45 94 H 23 114/52 L 91 L 09/06/24 06:42 106 H 12 104/60 L 95 09/06/24 06:30 97 H 22 101/51 L 91 L 09/06/24 06:15 100 H 22 112/54 L 91 L 09/06/24 06:14 92 L 09/06/24 06:00 97 H 20 115/52 L 95 09/06/24 05:45 96 H 20 117/62 91 L 09/06/24 05:30 72 21 111/68 98 09/06/24 05:15 60 22 122/49 L 96 09/06/24 05:13 99 H 17 133/59 L 97 09/06/24 05:00 102 H 18 130/59 L 96 09/06/24 05:00 09/06/24 04:45 105 H 21 138/66 97 09/06/24 04:38 120 H 09/06/24 04:38 108 H 09/06/24 04:00 09/06/24 04:00 107 H 09/06/24 03:45 110 H 24 149/76 H 95 09/06/24 03:31 76 23 155/83 H 96 09/06/24 03:21 106 H 21 166/75 H 96 09/06/24 03:15 106 H 22 160/88 H 99 09/06/24 03:10 105 H 15 200/101 H 98 09/06/24 03:04 111 H 21 177/94 H 97 09/06/24 03:00 09/06/24 02:45 107 H 22 162/93 H 97 09/06/24 02:43 106 H 23 173/93 H 97 09/06/24 02:30 98 H 21 165/84 H 97 09/06/24 02:15 107 H 21 160/86 H 98 09/06/24 02:00 98 H 24 174/96 H 98 09/06/24 01:15 110 H 31 H 162/99 H 97 09/06/24 01:00 09/06/24 00:57 98.9 F 110 H 22 170/103 H 09/06/24 00:53 101.2 F H 107 H 31 H 162/99 H 98 09/05/24 23:17 97 07/20/25 22:31 09/05/24 22:30 119 H 09/05/24 21:29 101.8 F H 119 H 39 H 169/104 H 91 L O2 Del Method O2 Flow Rate FiO2 09/06/24 10:15 Vapotherm 09/06/24 10:15 09/06/24 10:00 09/06/24 10:00 09/06/24 09:45 09/06/24 09:45 09/06/24 09:30 09/06/24 09:30 09/06/24 09:16 09/06/24 09:16 09/06/24 09:15 09/06/24 09:00 Vapotherm 30 09/06/24 09:00 09/06/24 08:45 09/06/24 08:45 09/06/24 08:31 09/06/24 08:31 09/06/24 08:30 09/06/24 08:15 09/06/24 08:15 09/06/24 08:00 09/06/24 08:00 09/06/24 08:00 Vapotherm 30 09/06/24 07:45 09/06/24 07:45 09/06/24 07:30 09/06/24 07:30 09/06/24 07:15 09/06/24 07:15 09/06/24 07:00 Vapotherm 30 09/06/24 07:00 Vapotherm 30 50 09/06/24 06:45 09/06/24 06:42 09/06/24 06:30 Vapotherm 30 50 09/06/24 06:15 09/06/24 06:14 Vapotherm 30 50 09/06/24 06:00 09/06/24 05:45 Vapotherm 30 70 09/06/24 05:30 09/06/24 05:15 09/06/24 05:13 09/06/24 05:00 09/06/24 05:00 Vapotherm 09/06/24 04:45 09/06/24 04:38 09/06/24 04:38 09/06/24 04:00 Vapotherm 30 70 09/06/24 04:00 09/06/24 03:45 Vapotherm 30 09/06/24 03:31 09/06/24 03:21 09/06/24 03:15 09/06/24 03:10 09/06/24 03:04 09/06/24 03:00 Vapotherm 30 09/06/24 02:45 09/06/24 02:43 09/06/24 02:30 09/06/24 02:15 09/06/24 02:00 Vapotherm 30 60 09/06/24 01:15 Vapotherm 30 60 09/06/24 01:00 Vapotherm 09/06/24 00:57 BiPAP 09/06/24 00:53 Vapotherm 30 60 09/05/24 23:17 Vapotherm 30 60 09/05/24 22:31 Vapotherm 30 100 09/05/24 22:30 09/05/24 21:29 Intake and Output 09/05/24 09/06/24 09/06/24 23:59 07:59 15:59 Intake Total 62.261 / 760.261 698 / 760.261 Output Total 5800 / 6500 700 / 6500 Balance -5737.739 / -5739.739 -2 / -5739.739 Intake: Intake, Total IV Amount 62.261 / 760.261 698 / 760.261 Azithromycin 500 mg In 0.9 % 240 / 240 Sodium Chloride 250 ml @ 250 mls/hr IV Q24H [facility] Rx#:[id number] Ceftriaxone 1 gm 1 gm In 0.9 % 45 / 45 Sodium Chloride 50 ml @ 100 mls /hr IV ONCE ONE Rx#:[id number] KCl 10mEq/100ml 100 ml @ 100 313 / 313 mls/hr IV Q1H [facility] Rx#:[id number] Output: Output, Urine Amount 0 / 700 700 / 700 Output, Urine Amount (Catheter) 5800 / 5800 Duke 5800 / 5800 Other: Number of Unmeasured Voids 1 Weight 172.365 kg 178.2 kg Patient Weight 09/06/24 23:59 Weight 178.2 kg Laboratory Results - last 24 hr 09/05/24 21:18: VBG pH 7.41, VBG pCO2 33.6 L, VBG pO2 36.1, VBG HCO3 20.7 L, VBG Total CO2 21.8 L, VBG O2 Saturation 65.2, VBG Base Excess -3.9 L, VBG Lactic Acid 3.3 H 09/05/24 21:19: WBC 32.4 H*, RBC 5.52 H, Hgb 10.6 L, Hct 37.7, MCV 68.3 L, MCH 19.2 L, MCHC 28.1 L, RDW 18.5 H, Plt Count 562 H, MPV 10.6 H, Neut % (Auto) 92.5 H, Lymph % (Auto) 2.8 L, [place] % (Auto) 3.2, Eos % (Auto) 0.0 L, Baso % (Auto) 0.2, Neut # (Auto) 30.0 H, Lymph # (Auto) 0.9, [place] # (Auto) 1.1 H, Eos # (Auto) 0.0, Baso # (Auto) 0.1, Total Counted 100, Neutrophils % (Manual) 90 H, Lymphocytes % (Manual) 8 L, Monocytes % (Manual) 2, Platelet Estimate Normal, RBC Morphology Normal, Sodium 129 L, Potassium 4.4, Chloride 98, Carbon Dioxide 22, Anion Gap 13.4, BUN 15, Creatinine 0.90, Estimated Creat Clear 85, Estimated GFR 69, Est GFR ( Amer) 83, Glucose 158 H, Calcium 8.9, Total Bilirubin 2.4 H, AST 123 H, ALT 86 H, Alkaline Phosphatase 99, Troponin I 0.19 H, NT-Pro-B Natriuret Pep > 75218 H, Total Protein 7.8, Albumin 4.1, Globulin 3.7 H, Albumin/Globulin Ratio 1.1, HCG, Quant < 2 09/05/24 22:50: Chlamy pneumoniae PCR Not detected, Adenovirus (PCR) Not detected, B. pertussis DNA (PCR) Not detected, Coronavirus OC43 (PCR) Not detected, Coronavirus HKU1 (PCR) Not detected, Coronavirus 229E (PCR) Not detected, SARS-CoV-2 (PCR) Not detected, Coronavirus NL63 (PCR) Not detected, Human Metapneumovir PCR Not detected, Influenza A (H1) PCR Not detected, Influ A (H1N1/09) PCR Not detected, Influenza A (H3) PCR Not detected, Influenza Type A (PCR) Not detected, Influenza Type B (PCR) Not detected, M. pneumoniae (PCR) Not detected, Parainfluenza 1 (PCR) Not detected, Parainfluenza 2 (PCR) Not detected, Parainfluenza 3 (PCR) Not detected, Parainfluenza 4 (PCR) Not detected, RSV (PCR) Not detected, Entero/Rhino (PCR) Not detected 09/06/24 01:03: Troponin I 0.22 H 09/06/24 01:07: POC Glucose 138 H 09/06/24 03:38: Sodium 130 L, Potassium 3.4 L D, Chloride 98, Carbon Dioxide 25, Anion Gap 10.4, BUN 16, Creatinine 0.80, Estimated Creat Clear 92, Estimated GFR 79, Est GFR ( Amer) 95, Glucose 173 H, Lactate 2.1, Calcium 8.5, Magnesium 1.5 L, Troponin I 0.25 H 09/06/24 05:37: WBC 21.6 H* D, RBC 4.80, Hgb 9.5 L D, Hct 32.6 L, MCV 67.9 L, MCH 19.8 L, MCHC 29.1 L, RDW 17.4, Plt Count 489 H, MPV 10.3, Neut % (Auto) 94.7 H, Lymph % (Auto) 3.1 L, [place] % (Auto) 0.9 L, Eos % (Auto) 0.0 L, Baso % (Auto) 0.2, Neut # (Auto) 20.5 H, Lymph # (Auto) 0.7, [place] # (Auto) 0.2, Eos # (Auto) 0.0, Baso # (Auto) 0.1, Total Counted 100, Neutrophils % (Manual) 97 H, Lymphocytes % (Manual) 2 L, Monocytes % (Manual) 1 L, Platelet Estimate Slight increase, Hypochromasia 2+, Microcytosis 1+, Sodium 134 L, Potassium 3.3 L, Chloride 101, Carbon Dioxide 26, Anion Gap 10.3, BUN 16, Creatinine 0.90, Estimated Creat Clear 82, Estimated GFR 69, Est GFR ( Amer) 83, Glucose 197 H, Lactate 1.9, Calcium 8.7, Magnesium 1.6, Iron 22 L, TIBC 373, Iron Saturation 5.29148 L, Ferritin 12.9, Total Bilirubin 1.9 H, AST 122 H, ALT 100 H , Alkaline Phosphatase 106, Total Protein 6.2 L, Albumin 3.3 L D, Globulin 2.9, Albumin/Globulin Ratio 1.1, Triglycerides 79, Cholesterol 59 L, LDL Cholesterol Direct < 30.0 L, VLDL Cholesterol 16, HDL Cholesterol 27 L, Cholesterol/HDL Ratio 2.2, Vitamin B12 907, Folate 11.10, TSH 0.24 L, Free T4 1.47 09/06/24 05:46: Specimen Source Right radial, O2 % 30l 70%, ABG pH 7.48 H, ABG pCO2 32.4 L, ABG pO2 128.5 H, ABG HCO3 23.5, ABG Total CO2 24.5, ABG O2 Sa turation 99, ABG Base Excess -0.1, Dannie Test Acceptable 09/06/24 06:08: POC Glucose 208 H 09/06/24 09:50: Urine Color Yellow, Urine Appearance Clear, Urine pH 5.5, Ur Specific [place] 1.010, Urine Protein Negative, Urine Glucose (UA) Negative, Urine Ketones Negative, Urine Blood Negative, Urine Nitrate Negative, Urine Bilirubin Negative, Urine Urobilinogen 0.2, Ur Leukocyte Esterase Negative, Urine RBC Occasional, Urine WBC Occasional, Urine Bacteria Trace, Hyaline Casts Occ I & O for Labs for Last 24 Hours: Intake & Output 09/03/24 09/04/24 09/05/24 09/06/24 23:59 23:59 23:59 23:59 Intake Total 760.261 / 760.261 Output Total 6500 / 6500 Balance -5739.739 / -5739.739 Weight 172.365 kg 178.2 kg Constitutional: Present mild distress, morbidly obese, chronically ill appearing and cooperative Head: Present atraumatic ENT: Present normal exam Neck: Present normal inspection Respiratory: Present decreased breath sounds, distant breath sounds, able to speak in complete sentences and symmetric chest movement; Absent wheezes Cardiac: Present Reg Rate and Rhythm; Absent No Murmur GI: Present soft and normal bowel sounds; Absent distention or tenderness Rectal (female): Present deferred (female): Present deferred Extremities: Present edema (Bilateral lower extremities); Absent calf tenderness Skin: Present erythema (Bilateral lower extremities) and dry Comment:: Venous stasis wounds bilateral lower extremities Neuro: Present Weakness, awake, oriented x 3 and moves all extremities Assessment and Plan *Assessment and plan (1) Acute on chronic HFrEF (heart failure with reduced ejection fraction): Status: Acute Category: Medical Code(s): I50.23 - Acute on chronic systolic (congestive) heart failure (2) Cardiomyopathy: Status: Acute Qualifiers: Cardiomyopathy type: dilated Qualified Code(s): I42.0 - Dilated cardiomyopathy Category: Medical Code(s): I42.9 - Cardiomyopathy, unspecified (3) Pulmonary edema: Status: Acute Qualifiers: Chronicity: acute Qualified Code(s): J81.0 - Acute pulmonary edema Category: Medical Code(s): J81.1 - Chronic pulmonary edema (4) Non-STEMI (non-ST elevated myocardial infarction): Status: Acute Category: Medical Code(s): I21.4 - Non-ST elevation (NSTEMI) myocardial infarction (5) Elevated troponin: Status: Acute Category: Medical Code(s): R79.89 - Other specified abnormal findings of blood chemistry (6) Acute hypoxic respiratory failure: Status: Acute Category: Medical Code(s): J96.01 - Acute respiratory failure with hypoxia (7) Respiratory failure with hypoxia: Status: Acute Qualifiers: Chronicity: acute on chronic Qualified Code(s): J96.21 - Acute and chronic respiratory failure with hypoxia Category: Medical Code(s): J96.91 - Respiratory failure, unspecified with hypoxia (8) HTN (hypertension): Status: Chronic Qualifiers: Hypertension type: essential hypertension Qualified Code(s): I10 - Essential (primary) hypertension Category: Medical Code(s): I10 - Essential (primary) hypertension (9) Edema: Status: Chronic Qualifiers: Edema type: unspecified Qualified Code(s): R60.9 - Edema, unspecified Category: Medical Code(s): R60.9 - Edema, unspecified (10) Tobacco dependence syndrome: Status: Chronic Category: Medical Code(s): F17.200 - Nicotine dependence, unspecified, uncomplicated (11) Obesity: Status: Acute Qualifiers: Obesity classification: adult class 3 (BMI >= 40) Obesity type: unspecified obesity type Qualified Code(s): E66.813 - Obesity, class 3; Z68.41 - Body mass index [BMI] 40.0-44.9, adult Category: Medical Code(s): E66.9 - Obesity, unspecified (12) SOB (shortness of breath): Status: Acute Category: Medical Code(s): R06.02 - Shortness of breath (13) Elevated white blood cell count: Status: Acute Qualifiers: Leukocytosis type: unspecified Qualified Code(s): D72.829 - Elevated white blood cell count, unspecified Category: Medical Code(s): D72.829 - Elevated white blood cell count, unspecified (14) Elevated liver enzymes: Status: Acute Category: Medical Code(s): R74.8 - Abnormal levels of other serum enzymes (15) Sepsis: Status: Acute Category: Medical Code(s): A41.9 - Sepsis, unspecified organism (16) Pulmonary embolism: Status: Acute Category: Medical Code(s): I26.99 - Other pulmonary embolism without acute cor pulmonale (17) Iron deficiency anemia: Status: Acute Category: Medical Code(s): D50.9 - Iron deficiency anemia, unspecified (18) Diabetes mellitus: Status: Acute Category: Medical Code(s): E11.9 - Type 2 diabetes mellitus without complications Plan Ms. Painting is a 44-year-old female who presented to the emergency department yesterday with complaints of worsening shortness of breath and cough. She stated that this has been going on for approximately 3 days, but she has been de aling with bilateral lower extremity edema for a few months now. She has a primary medical history of hypertension, asthma, tobacco use, methamphetamine use, hypertension, COPD, cardiomegaly, reduced EF. When asked about recent visits to her PCP and recommendations for follow-up with pulmonology and cardiology patient states she has been unable to make any appointments. Upon arrival to the ED yesterday she was found to be hypoxic, saturating 86% on room air. She was placed on a nonrebreather. She did deny chest pain, abdominal pain, nausea, vomiting, diarrhea. She was admitted to the ICU for further management, plan of care as follows: #Acute on chronic HFrEF exacerbation #Pulmonary edema #Shortness of breath #Respiratory failure with hypoxia #Edema ?Patient was taken to the ICU and placed on Vapotherm, which for which she responded well to. Patient is still currently on Vapotherm but is being weaned as tolerated, O2 saturation above 90%. ?Pulmonology consulted, Dior every 6 hours scheduled. ?Patient clearly volume overloaded, bilateral lower extremities 3+ edema with venous stasis ulcers. CT scan shows pulmonary edema. Patient being diuresed w ith Lasix 80 mg twice daily and spironolactone 25 mg twice daily, output of approximately 6 L since admission. BNP greater than 30,000. #NSTEMI #Cardiomyopathy #Elevated troponin ? Patient was found to have elevated troponins, likely in the setting of HFrEF exacerbation. Initial troponin 0.19 trending upward to 0.25. Patient does deny chest pain. ? Cardiology is consulted, recommendations for left heart cath at some point during hospitalization, once CHF exacerbation improves. ? Cardiac MRI at the beginning of this year showed EF approximately 40%, the ED performed a bedside [id number] echo that estimated EF at 20%. Official echo today shows EF of 55%, patient on milrinone drip currently likely skewing the results of the echo. Will hold milrinone at midnight and repeat echo in the morning. #Fever #Sepsis #Leukocytosis ?Patient white count on admission 32.4, trending down today to 21.6. Patient was found to be febrile, Tmax 101.9. She has remained afebrile today. ?Pulmonary blood cultures show anaerobic gram-positive cocci, Streptococcus pyogenes, aerobic gram-positive cocci. Will continue to monitor for sensitivity. ?Patient is being empirically treated with Zosyn 3.375 g every 6 hours, azithromycin 500 mg every 24 hours. ?Will repeat blood cultures today. ?CBC, CMP ordered for the a.m. #Pulmonary embolism ? Patient had CTA of chest in the ED, found to have PE. Patient started on therapeutic Lovenox 180 mg every 12 hours. #Tobacco use disorder ? Patient states that she has not smoked 3 days prior to coming to the hospital. Nicotine patches ordered as needed. #Obesity ? Complicates all aspects of care. ? Patient is morbidly obese with a BMI of 58. #Elevated liver enzymes ?AST 120, ALT 118. Bilirubin 1.6. ?Monitor LFTs in the a.m. ?Patient hepatitis C antibody screen was reactive in December 2023. #Diabetes mellitus, type II ? Patient no known history of diabetes, A1c 7.3%. ? Blood sugars have been running 150s to 200s consistently. ? ACHS fingersticks, sliding scale insulin #Iron deficient anemia ? Patient found to be anemic on admission, she states this is a chronic issue for her she is prescribed iron 325 mg daily. ? Initial hemoglobin 10.6, repeat today 9.5. Will continue to monitor. ? Threshold for transfusion hemoglobin less than 7.0. ? Iron studies obtained, iron saturation 5.89, iron 22, folate 11.1. Full code PT/OT eval for weakness Cardiology and pulmonology consulted Cardiac diet Lovenox VTE
[2024-09-06 10:58] LABS: Hemoglobin A1C 7.3 % (4.0-6.0)
[2024-09-06 11:04] LABS: Barbiturates Screen,Urine Negative ng/ml (<200)
[2024-09-06 11:05] LABS: Benzodiazepines Screen,Urine Negative ng/ml (<200)
[2024-09-06 11:07] LABS: Methadone Screen,Urine Negative ng/ml (<300); Opiate Screen,Urine Negative ng/ml (<300)
[2024-09-06 11:08] LABS: Phencyclidine Screen,Urine Negative ng/ml (<25)
[2024-09-06 11:13] LABS: POC Glucose,Bedside 231 (70-110)
[2024-09-06 11:41] LABS: Amphetamine/Metha Screen,Urine Positive ng/ml (<1000)
[2024-09-06 12:27] LABS: CTX-M NOT DETECTED; Enterococcus faecalis NOT DETECTED; Enterococcus faecium NOT DETECTED; IMP NOT DETECTED; KPC NOT DETECTED; NDM NOT DETECTED; OXA-48-like NOT DETECTED; Staphylococcus epidermidis NOT DETECTED; Staphylococcus spp. NOT DETECTED; VIM NOT DETECTED; mcr-1 NOT DETECTED; mecA/C NOT DETECTED; mecA/C and MREJ (MRSA) NOT DETECTED; vanA/B NOT DETECTED
[2024-09-06 12:28] LABS: Acinetobacter calcoaceticus-ba NOT DETECTED; Bacteroides fragilis NOT DETECTED; Candida auris NOT DETECTED; Candida glabrata NOT DETECTED; Enterobacterales NOT DETECTED; Klebsiella aerogenes NOT DETECTED; Klebsiella pneumoniae grp NOT DETECTED; Proteus spp. NOT DETECTED; Salmonella spp. NOT DETECTED; Serratia marcescens NOT DETECTED; Staphylococcus lugdunensis NOT DETECTED; Stenotrophomonas maltophilia NOT DETECTED; Streptococcus agalactiae(GrpB) NOT DETECTED; Streptococcus pyogenes Group A DETECTED; Streptococcus spp. DETECTED
[2024-09-06 12:47] LABS: Albumin Level 3.6 g/dl (3.5-5.0); Chloride 96 mmol/L (98-107); Potassium 3.2 mmoL/L (3.5-5.1); Sodium 133 mmol/L (136-145)
[2024-09-06 12:50] LABS: Alanine Aminotransferase 118 U/L (12-78); Albumin/Globulin Ratio 1.1 (1.1-1.8); Alkaline Phosphatase 86 U/L (38-126); Anion Gap 11.2 mEq/L (5-15); Aspartate Amino Transferase 120 U/L (14-36); Bilirubin,Total 1.6 mg/dl (0.2-1.3); Blood Urea Nitrogen 19 mg/dl (7-17); Carbon Dioxide 29 mmol/L (22.0-30.0); Creatinine Clearance Estimated 82 mL/min (50-200); Creatinine,Serum 0.90 mg/dl (0.52-1.04); Estimated Glomerular Filt Rate 69 ml/min (>60); GFR (African American) 83 ML/MIN (>60); Globulin 3.3 g/dL (1.3-3.2); Total Protein,Serum 6.9 g/dl (6.3-8.2)
[2024-09-06 12:51] LABS: Calcium 8.9 mg/dl (8.4-10.2); Glucose 196 mg/dl (74-100)
--- NOTE | 2024-09-06 13:27 | HMH.OTEV ---
OT Inpatient Evaluation Rehab OT IP Evaluation Start: 09/06/24 11:04 Freq: ONCE Status: Active Protocol: Document 09/06/24 13:20 [facility] (Rec: 09/06/24 13:26 [facility] [id number]) Rehab OT IP Assessment Subjective History Pt oriented x3 on arrival. Pt agreeable to engage in therapy evaluation. Pt admitted on 08/21/24 due respiratory failure; PNA. History and physical: Morbidly obese female with a very large left ventricle. That has been a smoker since about age 18, comes in in respiratory distress.. Last cigarette approximately 3 days ago. . Patient is a 44-year-old female with past medical history of hypertension, asthma, chronic smoker, methamphetamine use who presents emergency department for evaluation of cough and shortness of breath. Onset was acute, over the last 3 days. She smoked a pack a day until 3 days ago when she developed a cough and shortness of breath generally feeling unwell. Upon EMS arrival she was saturating 86% which went up to the mid 90s on nonrebreather. Patient was given an albuterol treatment prior to arrival. She denies chest pain. No other interventions prehospital. No other acute complaints at this time. I have spoken with the ER doctor and agree that the patient needs to be admitted to the intensive care unit , he has spoken with Dr. Brown and cardiology and pulmonary consult will be done. Patient will be started on milrinone has been given 80 mg of Lasix. Also noting slightly elevated troponin. I have spoken to the patient and her significant other, that she is very ill at this time we are going to do everything to bring fluid off of her clear her lungs treat any infection. That she will be in the ICU tonight. We have talked about CODE STATUS and the patient wants to remain a full code. Teaching done on need for lifestyle changes that in my opinion she would get better this time but be back within a month.. Subjective I am moving better. Prior to being in the hospital, pt lived with several family members. Pt claims normally she is independent with all ADLs and IADLs. Pt did not require any type of AE during functional transfers. Pt was also still driving. Objective Patient Orientation Person,Place,Birthday Right Upper WFL Extremity Gross ROM Left Upper Extremity WFL Gross ROM Shoulder ROM Muscle Weakness Limitations Elbow ROM Muscle Weakness Limitations Wrist Limitations of Muscle Weakness Range of Motion Bed Mobility bed mobility-scooting,bed mobility - supine/sit Assist Level Contact Guard/Hand Hold Transfer Training Sit/Stand Transfer Assist Level Contact Guard/Hand Hold Rehab OT IP prob,goals,plan Problems Date of Evaluation: 09/06/24 OT IP Problems Bed Mobility,Transfers,Balance,Self care,Safety Rehab Potential Rehab Potential Good Equipment Needs Assistive Devices None / NA Plan OT intervention Plan Bed Mobility,Transfers OT Plan Frequency Daily Duration LOS Discharge Goals Bed Mobility Ability Standby Assistance Sit to Stand Chair Supervision/Stand by Transfer Ability Chair Transfer Supervision/Stand by Ability Chair Transfer Sit to/from Ambulatory Technique Lower Body Dressing Standby Assistance Ability Upper Body Dressing Standby Assistance Ability Performing Toilet Standby Assistance Hygiene Ability Overall Commode/ Standby Assistance Toilet Transfer Ability Commode/Toilet Sit to/from Ambulatory Transfer Technique Discharge Plan OT Discharge Plan Pt will continue to be seen for OT services while at [facility]. Pt has a slight decline with functional transfers and ADL independence at this time. Pt can return home with family assistance once she is medically stable per physician. Therapist recommends OT evaluation for continued skilled therapy services. Eval Complexity Eval Charge Codes 41810 - Moderate Complexity PHYSICIAN CERTIFICATION: I certify the specified therapy services for Lian Painting are required, authorized, and reviewed every 30 days.
--- OUTSIDE RECORDS SUMMARY | 2024-09-06 16:16 | XMS_ITS | Patient Health Record ---
Author Organization [facility] Address [address] [place] [address] Care Team Providers Care Microfilm Mounter Name Role Phone Christi Stevens Primary Care Provider [phone] CHRISTI STEVENS Unavailable Unavaila ble Migration, Provider [...] W/U Status Risk Notes Problem Tobacco use (325891782) Tobacco use (Z72.0) Active confirmed Problem Morbid obesity (731368180) Morbid obesity (E66.01) Active confirmed Problem Lymphedema (77293810) Lymphedema (I89.0) Active confirmed Problem Iron deficiency anemia (69380815) Iron deficiency anemia, unspecified iron deficiency anemia type (D50.9) Active confirmed Problem Body mass index 40+ - morbidly obese (266165047) BMI 60.0-69.9, adult (Z68.44) Active confirmed Problem Chronic sinusitis (27444077) Purulent postnasal drainage (J32.9) Active confirmed Encounters Encounter Location Date Provider Diagnosis [facility] [address] [place] [address] 05/22/2024 Provider Migration Plan Of Treatment Pending Test Test Name Order Date Physical Therapy : Lymphedema 08/27/2022 Physical Therapy : Lymphedema 03/25/2023 Insurance Providers Payer Name Payer Address Payer Phone Subscriber Number Group Number Insured Name Patient Relationship to Insured Coverage Start Date Coverage End Date [employer] [facility] [address] [address] [place] [phone] [id number] Lian Painting Self - patient is the insured Medical (General) History Medical History History ICD Code Obesity CATHRYN - not treated Tobacco use Surgical History Surgery Date(Month/Year) tonsillectomy/ear tubes 1988 Hospitalization History Reason Date(Month/Year) above
--- OUTSIDE RECORDS SUMMARY | 2024-09-06 16:16 | XMS_ITS | Clinical Summary ---
Author Organization [facility] Address [address] [place] [address] Care Team Providers Care Industrial Gas Servicer Name Role Phone Provider, No Known Primary [...] age to complete this topic Care Teams Industrial Gas Servicer Relationship Specialty Start Date End Date Provider, [place] [address] PCP - General 08/06/19
[2024-09-06 17:14] LABS: POC Glucose,Bedside 195 (70-110)
[2024-09-06] MEDS: PANTOPRAZOLE 40MG VIAL 40 MG IV (21:20)
[2024-09-07] VITALS (10 sets, daily range): BP systolic 133–146; BP diastolic 76–97; PULSE 72–114; RESP 14–22; TEMP 36.6–36.9; O2SAT 92–99; BMI 57.4
[2024-09-07] MEDS: PIPERACILLIN/TAZO 3.375 GM in 0.9 % SODIUM CHLORIDE 50 ML IV ×4 (05:45→23:58)
--- NOTE | 2024-09-07 06:00 | CA_ITS ---
APPROVED REPORT EXAM: Limited 2D Echocardiogram with contrast Inspector Eyeglass Frames: Rhea Samaniego CRT Ht: 5 ft 8 in Wt: 392lbs BSA: 2.72 BP: 169/104 mmHg Indications: EF check after milrinone drip was stopped 09/06/24 Echo Enhancing Agent Indication: Endocardial border delineation Agent(s) / Amount(s) Used: Definity 2 cc Comments: definity given M-Mode Dimensions RVDd 3.52 cm (0.9-2.6) LVDd 6.36 cm (3.5-5.7) LVDs 5.50 cm (3.5-5.7) IVSd 1.32 cm (0.6-1.1) PWd 1.06 cm (0.6-1.1) EF (Teich) 28.30% FS 13.50% EDV (Teich) 205.60 mL ESV (Teich) 147.40 mL Other Information Study Quality: Fair Conclusion This is a limited TTE to evaluate for LV systolic function off inotropic support. Limited windows were obtained. Ultrasound enhancing agent is administered to better delineate the LV endocardial borders. The left ventricle is normal in size. There is normal LV wall thickness. There is moderate global hypokinesis present. The inferior, inferolateral, and inferoseptal LV mai are severely hypokinetic. LVEF is 30-35%. No evidence of LV thrombus after administration of ultrasound enhancing agent. Electronically signed by : Janay Fisher MD 09/07/2024 10:22:25
[2024-09-07] MEDS: IPRATROPIUM/ALBUTEROL 3 ML NEB IH (06:12)
[2024-09-07 06:42] LABS: Hematocrit 32.5 % (37.0-47.0); Hemoglobin 9.6 g/dL (12.2-16.2); Immature Granulocytes % 0.6 %; Mean Corpuscular HGB Conc 29.5 g/dL (31.8-35.4); Mean Corpuscular Hemoglobin 20.4 pg (27.0-31.2); Mean Corpuscular Volume 69.0 fl (81-99); Nucleated Red Blood Cells % 0 %; Platelet Count 535 K/mm3 (142-424); Red Blood Count 4.71 M/mm3 (4.20-5.40); Red Cell Distribution Width-SD 42.6 fL; White Blood Count 22.5 K/mm3 (4.8-10.8)
[2024-09-07 06:53] LABS: Alanine Aminotransferase 136 U/L (12-78); Albumin Level 3.3 g/dl (3.5-5.0); Albumin/Globulin Ratio 1.0 (1.1-1.8); Alkaline Phosphatase 80 U/L (38-126); Anion Gap 7.6 mEq/L (5-15); Aspartate Amino Transferase 104 U/L (14-36); Bilirubin,Total 1.1 mg/dl (0.2-1.3); Blood Urea Nitrogen 21 mg/dl (7-17); Calcium 8.6 mg/dl (8.4-10.2); Carbon Dioxide 32 mmol/L (22.0-30.0); Chloride 103 mmol/L (98-107); Creatinine Clearance Estimated 74 mL/min (50-200); Creatinine,Serum 1.00 mg/dl (0.52-1.04); Estimated Glomerular Filt Rate 61 ml/min (>60); GFR (African American) 74 ML/MIN (>60); Globulin 3.2 g/dL (1.3-3.2); Glucose 139 mg/dl (74-100); Magnesium 2.0 mg/dl (1.6-2.3); Potassium 3.6 mmoL/L (3.5-5.1); Sodium 139 mmol/L (136-145); Total Protein,Serum 6.5 g/dl (6.3-8.2)
[2024-09-07] MEDS: DEFINITY US ECHO CONTRAST 2ML INJ 2 MG IV (07:35)
[2024-09-07] MEDS: FUROSEMIDE 100MG/10ML VIAL 80 MG IV ×2 (08:59→16:55)
[2024-09-07] MEDS: AZITHROMYCIN 500 MG in 0.9 % SODIUM CHLORIDE 250 ML 250 MG IV (08:59)
[2024-09-07] MEDS: SPIRONOLACTONE 25MG TABLET 25 MG PO (09:02)
[2024-09-07] MEDS: ASPIRIN EC 81MG TABLET 81 MG PO (09:02)
--- NOTE | 2024-09-07 09:30 | P.PN_ITS ---
Subjective *Date: 09/07/24 *Time: 12:52 Interval history: No acute respiratory events overnight. Pulmonology Exam Inpatient Vital signs and Labs for Last 24 Hours: Temp Pulse Resp BP Pulse Ox O2 Del Method O2 Flow Rate 98.6 F 89 14 142/76 H 99 Nasal Cannula 4 09/06/24 20:00 09/07/24 06:11 09/07/24 04:00 09/07/24 04:00 09/07/24 04:00 09/07/24 06:45 09/07/24 06:45 FiO2 35 09/06/24 12:25 Laboratory Results - last 24 hr 09/05/24 21:10: A. baumannii (PCR) Not detected, Bacteroides fragilis Not detected, Nadine albicans (PCR) Not detected, Nadine auris (PCR) Not detected, C. glabrata (PCR) Not detected, C. krusei (PCR) Not detected, C. parapsilosis (PCR) Not detected, C. tropicalis (PCR) Not detected, Cryptococcus neoformans PCR Not detected, Enterobacterales (PCR) Not detected, Enterococc faecalis PCR Not detected, Enterococc faecium PCR Not detected, E. coli (PCR) Not detected, H. influenzae DNA Not detected, Klebsiella aerogenes (PCR) Not detected, Klebsiella oxytoca PCR Not detected, K. pneumoniae group (PCR) Not detected, List. monocytogenes PCR Not detected, N. meningitidis (PCR) Not detected, Proteus species (PCR) Not detected, Salmonella spp. (PCR) Not detected, Serratia marcescens PCR Not detected, Staphylococcus sp PCR Not detected, Staph aureus (PCR) Not detected, mecA/C & MREJ Resist Gene Not detected, mecA/C-Methicil Resis Gene Not detected, Staph epidermidis (PCR) Not detected, Staph lugdunensis (TEM-PCR) Not detected, S. maltophilia (PCR) Not detected, Streptococcus sp PCR Detected, S.agalactiae Grp B ALMA Not detected, Strep pneumoniae (PCR) Not detected, S. pyogenes GrpA ALMA Detected, P. aeruginosa (PCR) Not detected, [place]/B-Vanco Res Genes Not detected, blaIMP Car res Gene PCR Not detected, KPC- Carbap Res Gene PCR Not detected, blaNDM Car Res Gene PCR Not detected, OXA-48 Carbapenem Resis Gene (PCR) Not detected, blaVIM Car Res Gene PCR Not detected, CTX-M Gene Resistance (PCR) Not detected, MCR-1 Resistance Gene Not detected 09/06/24 05:37: Hemoglobin A1c 7.3 H, Iron 22 L, TIBC 373, Iron Saturation 5.95035 L, Ferritin 12.9, TSH 0.24 L, Free T4 1.47 09/06/24 09:50: Urine Color Yellow, Urine Appearance Clear, Urine pH 5.5, Ur Specific [place] 1.010, Urine Protein Negative, Urine Glucose (UA) Negative, Urine Ketones Negative, Urine Blood Negative, Urine Nitrate Negative, Urine Bilirubin Negative, Urine Urobilinogen 0.2, Ur Leukocyte Esterase Negative, Urine RBC Occasional, Urine WBC Occasional, Urine Bacteria Trace, Hyaline Casts Occ, Urine Opiates Screen Negative, Urine Methadone Screen Negative, Ur Barbituates Screen Negative, Ur Phencyclidine Scrn Negative, Ur Amphetamines Screen Positive H, U Benzodiazepines Scrn Negative, Urine Cocaine Screen Negative, U Marijuana (THC) Screen Negative 09/06/24 11:03: POC Glucose 231 H 09/06/24 12:34: Sodium 133 L, Potassium 3.2 L, Chloride 96 L, Carbon Dioxide 29, Anion Gap 11.2, BUN 19 H, Creatinine 0.90, Estimated Creat Clear 82, Estimated GFR 69, Est GFR ( Amer) 83, Glucose 196 H, Calcium 8.9, Total Bilirubin 1.6 H, AST 120 H, ALT 118 H, Alkaline Phosphatase 86, Total Protein 6.9, Albumin 3.6, Globulin 3.3 H, Albumin/Globulin Ratio 1.1 09/06/24 17:08: POC Glucose 195 H 09/07/24 06:04: WBC 22.5 H*, RBC 4.71, Hgb 9.6 L, Hct 32.5 L, MCV 69.0 L, MCH 20.4 L, MCHC 29.5 L, RDW 18.0 H, Plt Count 535 H, MPV 10.3, Neut % (Auto) 84.4 H , Lymph % (Auto) 7.7 L, [place] % (Auto) 7.2, Eos % (Auto) 0.0 L, Baso % (Auto) 0.1, Neut # (Auto) 19.0 H, Lymph # (Auto) 1.7, [place] # (Auto) 1.6 H, Eos # (Auto) 0.0, Baso # (Auto) 0.0, Sodium 139, Potassium 3.6, Chloride 103, Carbon Dioxide 32 H, Anion Gap 7.6, BUN 21 H, Creatinine 1.00, Estimated Creat Clear 74, Martha mated GFR 61, Est GFR ( Amer) 74, Glucose 139 H D, Calcium 8.6, Magnesium 2.0 D, Total Bilirubin 1.1, AST 104 H, ALT 136 H, Alkaline Phosphatase 80, Total Protein 6.5, Albumin 3.3 L, Globulin 3.2, Albumin/Globulin Ratio 1.0 L Temp Pulse Resp BP Pulse Ox O2 Del Method O2 Flow Rate 98.0 F 90 27 H 106/56 L 94 L Vapotherm 30 09/06/24 08:00 09/06/24 08:00 09/06/24 07:00 09/06/24 08:00 09/06/24 08:00 09/06/24 08:00 09/06/24 08:00 FiO2 50 09/06/24 07:00 Laboratory Results - last 24 hr 09/05/24 21:18: VBG pH 7.41, VBG pCO2 33.6 L, VBG pO2 36.1, VBG HCO3 20.7 L, VBG Total CO2 21.8 L, VBG O2 Saturation 65.2, VBG Base Excess -3.9 L, VBG Lactic Acid 3.3 H 09/05/24 21:19: WBC 32.4 H*, RBC 5.52 H, Hgb 10.6 L, Hct 37.7, MCV 68.3 L, MCH 19.2 L, MCHC 28.1 L, RDW 18.5 H, Plt Count 562 H, MPV 10.6 H, Neut % (Auto) 92.5 H, Lymph % (Auto) 2.8 L, [place] % (Auto) 3.2, Eos % (Auto) 0.0 L, Baso % (Auto) 0.2, Neut # (Auto) 30.0 H, Lymph # (Auto) 0.9, [place] # (Auto) 1.1 H, Eos # (Auto) 0.0, Baso # (Auto) 0.1, Total Counted 100, Neutrophils % (Manual) 90 H, Ly mphocytes % (Manual) 8 L, Monocytes % (Manual) 2, Platelet Estimate Normal, RBC Morphology Normal, Sodium 129 L, Potassium 4.4, Chloride 98, Carbon Dioxide 22, Anion Gap 13.4, BUN 15, Creatinine 0.90, Estimated Creat Clear 85, Estimated GFR 69, Est GFR ( Amer) 83, Glucose 158 H, Calcium 8.9, Total Bilirubin 2.4 H , AST 123 H, ALT 86 H, Alkaline Phosphatase 99, Troponin I 0.19 H, NT-Pro-B Natriuret Pep > 01223 H, Total Protein 7.8, Albumin 4.1, Globulin 3.7 H, Albumin/Globulin Ratio 1.1, HCG, Quant < 2 09/05/24 22:50: Chlamy pneumoniae PCR Not detected, Adenovirus (PCR) Not detected, B. pertussis DNA (PCR) Not detected, Coronavirus OC43 (PCR) Not detected, Coronavirus HKU1 (PCR) Not detected, Coronavirus 229E (PCR) Not detected, SARS-CoV-2 (PCR) Not detected, Coronavirus NL63 (PCR) Not detected, Human Metapneumovir PCR Not detected, Influenza A (H1) PCR Not detected, Influ A (H1N1/09) PCR Not detected, Influenza A (H3) PCR Not detected, Influenza Type A (PCR) Not detected, Influenza Type B (PCR) Not detected, M. pneumoniae (PCR) Not detected, Parainfluenza 1 (PCR) Not detected, Parainfluenza 2 (PCR) Not detected, Parainfluenza 3 (PCR) Not detected, Parainfluenza 4 (PCR) Not detected, RSV (PCR) Not detected, Entero/Rhino (PCR) Not detected 09/06/24 01:03: Troponin I 0.22 H 09/06/24 01:07: POC Glucose 138 H 09/06/24 03:38: Sodium 130 L, Potassium 3.4 L D, Chloride 98, Carbon Dioxide 25, Anion Gap 10.4, BUN 16, Creatinine 0.80, Estimated Creat Clear 92, Estimated GFR 79, Est GFR ( Amer) 95, Glucose 173 H, Lactate 2.1, Calcium 8.5, Magnesium 1.5 L, Troponin I 0.25 H 09/06/24 05:37: WBC 21.6 H* D, RBC 4.80, Hgb 9.5 L D, Hct 32.6 L, MCV 67.9 L, MCH 19.8 L, MCHC 29.1 L, RDW 17.4, Plt Count 489 H, MPV 10.3, Neut % (Auto) 94.7 H, Lymph % (Auto) 3.1 L, [place] % (Auto) 0.9 L, Eos % (Auto) 0.0 L, Baso % (Auto) 0.2, Neut # (Auto) 20.5 H, Lymph # (Auto) 0.7, [place] # (Auto) 0.2, Eos # (Auto) 0.0, Baso # (Auto) 0.1, Total Counted 100, Neutrophils % (Manual) 97 H, Lymphocytes % (Manual) 2 L, Monocytes % (Manual) 1 L, Platelet Estimate Slight increase, Hypochromasia 2+, Microcytosis 1+, Sodium 134 L, Potassium 3.3 L, Chloride 101, Carbon Dioxide 26, Anion Gap 10.3, BUN 16, Creatinine 0.90, Estimated Creat Clear 82, Estimated GFR 69, Est GFR ( Amer) 83, Glucose 197 H, Lactate 1.9, Calcium 8.7, Magnesium 1.6, Total Bilirubin 1.9 H, AST 122 H , ALT 100 H, Alkaline Phosphatase 106, Total Protein 6.2 L, Albumin 3.3 L D, Globulin 2.9, Albumin/Globulin Ratio 1.1, Triglycerides 79, Cholesterol 59 L, LDL Cholesterol Direct < 30.0 L, VLDL Cholesterol 16, HDL Cholesterol 27 L, Cholesterol/HDL Ratio 2.2, Vitamin B12 907, Folate 11.10 09/06/24 05:46: Specimen Source Right radial, O2 % 30l 70%, ABG pH 7.48 H, ABG pCO2 32.4 L, ABG pO2 128.5 H, ABG HCO3 23.5, ABG Total CO2 24.5, ABG O2 Saturation 99, ABG Base Excess -0.1, Dannie Test Acceptable 09/06/24 06:08: POC Glucose 208 H I & O for Labs for Last 24 Hours: Intake & Output 09/04/24 09/05/24 09/06/24 09/07/24 23:59 23:59 23:59 23:59 Intake Total 2340.261 / 2890.261 550 / 550 Output Total 7300 / 7300 300 / 300 Balance -4959.739 / -4409.739 250 / 250 Weight 380 lb 392 lb 13.82 oz 387 lb 12.69 oz Intake & Output 09/03/24 09/04/24 09/05/24 09/06/24 23:59 23:59 23:59 23:59 Intake Total 62.261 / 62.261 Output Total 5800 / 5800 Balance -5737.739 / -5737.739 Weight 380 lb 392 lb 13.82 oz Microbiology Reports for the Last 24 Hours: Microbiology 09/05/24 21:10 Blood Blood Culture - Preliminary Gram Positive Cocci 09/06/24 01:11 Leg,Right Gram Stain - Final 09/06/24 01:11 Leg,Right Wound Culture - Preliminary 09/05/24 21:20 Blood Blood Culture - Preliminary NO GROWTH AFTER 24 HOURS Constitutional: Present severe distress and morbidly obese Head: Present normocephalic and atraumatic ENT: Present normal exam, normal oropharynx and mucous membranes moist Neck: Present normal inspection and full ROM Respiratory: Present crackles, normal respiratory effort and able to speak in complete sentences; Absent prolonged expiratory phase, respiratory distress or diminished air movement Cardiac: Present S1/S2, Tachycardia and radial pulses present GI: Present soft and distention; Absent tenderness or guarding Rectal (female): Present deferred (female): Present deferred Skin: Present intact; Absent cyanosis or jaundice Neuro: Present alert, awake and oriented x 3 Extremities: Present normal inspection; Absent clubbing or cyanosis Psychiatric: Present normal affect and cooperative Assessment and Plan *Assessment and plan (1) Pulmonary edema: Status: Acute Qualifiers: Chronicity: acute Qualified Code(s): J81.0 - Acute pulmonary edema Category: Medical Code(s): J81.1 - Chronic pulmonary edema (2) Acute hypoxic respiratory failure: Status: Acute Category: Medical Code(s): J96.01 - Acute respiratory failure with hypoxia (3) Pulmonary embolism: Status: Acute Category: Medical Code(s): I26.99 - Other pulmonary embolism without acute cor pulmonale Plan Ms. Painting is a 44-year-old female with reported history of tobacco abuse hypertension asthma presented to the ER with worsening respiratory distress cough found to be needing new oxygen requirements and pulmonary was called for further evaluation and management. Current smoker greater than [id number] smoking history not using any oxygen supplementation at baseline. Low-grade fevers at 101.8. Neutrophilic predominant leukocytosis upon admission. Comprehensive respiratory viral PCR panel negative Blood gas upon admission did not show any hypoxic/hypercarbic respiratory failure, arterial, pH of 7.48 and pCO2 32.4 and a PO2 128.5 CT chest upon admission bilateral groundglass opacity and septal thickening concerning for volume overload/pulmonary edema. Dilated right ventricle. Concern for right lower lobe segmental/subsegmental pulmonary embolism. Currently on milrinone and Zosyn. Interval update: No acute respiratory vents overnight. Tolerating nasal cannula well. Cardiology following. Continue to receive full dose anticoagulation for likely pulmonary embolism. Plan: Continue oxygen supplementation as needed to maintain O2 saturation of 90% and above. Weaned to room air this morning. Continue full dose anticoagulation for right lower lobe subsegmental pulmonary embolism x 3 months for likely provoked PE. DuoNebs every 6 hours scheduled basis Antibiotic management as per primary team. Evaluate for other possibilities of infection including possible bilateral lower extremity cellulitis Volume optimization as per primary team and cardiology. # Thank you for involving pulmonary in this patient care. Will continue to luis enrique hensley.
[2024-09-07 10:07] LABS: Procalcitonin 4.02 ng/mL (0.0-2.0)
--- NOTE | 2024-09-07 10:57 | HMH.PTEV ---
Physical Therapy Evaluation Rehab PT IP Evaluation Start: 09/06/24 11:04 Freq: ONCE Status: Active Protocol: Document 09/07/24 10:00 JAKE (Rec: 09/07/24 10:57 JAKE [id number]) Subjective/History History History 44-year-old female with past medical history of hypertension, asthma, chronic smoker, methamphetamine use who presents emergency department for evaluation of cough and shortness of breath. Onset was acute, over the last 3 days. She smoked a pack a day until 3 days ago when she developed a cough and shortness of breath generally feeling unwell. Upon EMS arrival she was saturating 86% which went up to the mid 90s on nonrebreather. Patient was given an albuterol treatment prior to arrival. She denies chest pain. No other interventions prehospital. No other acute complaints at this time. Pt presented upon admission with multiple small wounds to B lower legs. Subjective Subjective Pt presents sitting on BSC and agrees to mobility assessment. She reports she lives with multiple family members, 1 step to enter the home, and she is generally independent with all mobility at baseline. [facility] How much help from another person do you currently need... Turning from your None back to your side while in a flat bed without using bedrails? Moving from lying on None back to sitting on the side of a flat bed without using bedrails? Moving to and from a None bed to a chair ( including a wheelchair)? Standing up from a None chair using your arms? (e.g., wheelchair, bedside chair) Walking in hospital A little room? Climbing 3-5 steps A little with a railing? Mobility Score 22 Mobility Level [facility] Mobility 7 Walk 25 feet or more Mobility Calculator Rehab PT IP Eval Objective Appearance Patient Behavior Appropriate Patient Orientation Person,Place,Time Difficulty following none instructions Speech Pattern Clear Ambulation Patient Able to Yes Ambulate Ambulation Observation IP General Gait Wide Based Gait Pattern Observation Ambulation Distance 20 (feet) Ambulation Assistive None Device Ambulation Ability Supervision/Stand by Balance Ability to Arise Able, uses arms to help Sitting Balance Steady, safe Standing Balance Steady, wide stance Dynamic Sitting Good Balance Ability Dynamic Standing Good Balance Ability Transfers Bed Transfer Ability Supervision/Stand by Chair Transfer Supervision/Stand by Ability Sit to Stand Bed Supervision/Stand by Transfer Ability Sit to Stand Chair Supervision/Stand by Transfer Ability ROM All Extremities PT ROM Status WFL MMT All Extremities PT MMT WFL Rehab PT IP prob,goals,plan Problems Date of Evaluation: 09/07/24 Discharge Plan PT Discharge Plan Pt is currently appropriate to return home once medically stable for d/c. No current acute therapy needs at this time. Recommend home health therapy services after return home for endurance training, strength training, and wound care. Eval Complexity Eval Charge Codes 08773 - High Complexity PHYSICIAN CERTIFICATION: I certify the specified therapy services for Lian Painting are required, authorized, and reviewed every 30 days.
--- NOTE | 2024-09-07 11:01 | PC.NURSE ---
report given to KIM Hong
[2024-09-07 11:03] LABS: Hypochromasia 2+; Microcytosis 1+; Total Cells Counted 100
--- NOTE | 2024-09-07 11:16 | SW/DCPLANNER ---
Spoke with patient regarding outpatient therapy and if she would be willing to come back here to get wound care done to her legs. Patient stated that can get here and that she has a truck to get here with. I stressed to patient that it is very important to come to her schedule appointments and to not miss any. Ani Marshall
[2024-09-07] MEDS: ACETAMINOPHEN 500MG TAB 1000 MG PO ×2 (12:14→20:52)
[2024-09-07] MEDS: humaLOG 100 UNITS/ML 10ML VIAL (SSI) SUBCUT (12:15)
[2024-09-07 12:36] LABS: POC Glucose,Bedside 155 (70-110)
--- NOTE | 2024-09-07 13:30 | P.PN_ITS ---
Subjective Subjective Date: 09/07/24 Time: 11:45 Principal diagnosis: acute on chronic HFrEF, pneumonia Interval history: This is a 44-year-old white female who presented to the emergency department with complaints of shortness of breath. She was found to have an elevated troponin consistent with a non-STEMI, acute on chronic HFrEF and an elevated white blood cell count. The patient was diuresed with IV Lasix and milrinone. Her milrinone was stopped at midnight last night so we would be able to obtain an echocardiogram without the milrinone on board to get a true estimation of her ejection fraction. She has diuresed 6 L since admission and her shortness of breath and edema have improved. This morning she denies any chest pain or pressure. Her white count remains elevated and she is on IV antibiotics. She denies any fever, chills, nausea, vomiting or diarrhea. She states that she is feeling so much better. Exam Data for Last 24 hours Vital signs and Labs for Last 24 Hours: Temp Pulse Resp BP Pulse Ox O2 Del Method O2 Flow Rate 98.5 F 72 22 136/78 98 Room Air 4 09/07/24 12:00 09/07/24 12:00 09/07/24 12:00 09/07/24 12:00 09/07/24 12:00 09/07/24 13:05 09/07/24 09:00 FiO2 35 09/06/24 12:25 Laboratory Results - last 24 hr 09/06/24 17:08: POC Glucose 195 H 09/07/24 06:04: WBC 22.5 H*, RBC 4.71, Hgb 9.6 L, Hct 32.5 L, MCV 69.0 L, MCH 20.4 L, MCHC 29.5 L, RDW 18.0 H, Plt Count 535 H, MPV 10.3, Neut % (Auto) 84.4 H , Lymph % (Auto) 7.7 L, [place] % (Auto) 7.2, Eos % (Auto) 0.0 L, Baso % (Auto) 0.1, Neut # (Auto) 19.0 H, Lymph # (Auto) 1.7, [place] # (Auto) 1.6 H, Eos # (Auto) 0.0, Baso # (Auto) 0.0, Total Counted 100, Neutrophils % (Manual) 83 H, Lym phocytes % (Manual) 12, Monocytes % (Manual) 5, Platelet Estimate Moderate increase, Hypochromasia 2+, Microcytosis 1+, Sodium 139, Potassium 3.6, Chloride 103, Carbon Dioxide 32 H, Anion Gap 7.6, BUN 21 H, Creatinine 1.00, Estimated Creat Clear 74, Estimated GFR 61, Est GFR ( Amer) 74, Glucose 139 H D, Calcium 8.6, Magnesium 2.0 D, Total Bilirubin 1.1, AST 104 H, ALT 136 H, Alkaline Phosphatase 80, Total Protein 6.5, Albumin 3.3 L, Globulin 3.2, Albumin/Globulin Ratio 1.0 L 09/07/24 06:09: Procalcitonin 4.02 H 09/07/24 12:09: POC Glucose 155 H I & O for Last 24 hours: Intake & Output 09/04/24 09/05/24 09/06/24 09/07/24 23:59 23:59 23:59 23:59 Intake Total 2340.261 / 2890.261 1330 / 1330 Output Total 7300 / 7300 300 / 300 Balance -4959.739 / -4409.739 1030 / 1030 Weight 380 lb 392 lb 13.82 oz 387 lb 12.69 oz Microbiology Reports for the Last 24 Hours: Microbiology 09/05/24 21:10 Blood Blood Culture - Preliminary Gram Positive Cocci 09/06/24 01:11 Leg,Right Gram Stain - Final 09/06/24 01:11 Leg,Right Wound Culture - Preliminary 09/05/24 21:20 Blood Blood Culture - Preliminary NO GROWTH AFTER 24 HOURS Narrative: Echocardiogram shows: Normal biventricular systolic function. Mild RV dilation. Mild biatrial dilation. Elevated transaortic gradients (peak transaortic velocity 2.4 m/s. Mean AV gradient 10 mmHg. Max AV gradient 16 mmHg) in the setting of normal AV opening. Mild TR. Elevated RVSP 40-45 mmHg. In the setting of elevated transaortic gradients with otherwise normal AV opening, further outpatient evaluation with NICHOLAS may be suggested for evaluation of subaortic membrane. Limited echocardiogram off milrinone shows: This is a limited TTE to evaluate for LV systolic function off inotropic support. Limited windows were obtained. Ultrasound enhancing agent is administered to better delineate the LV endocardial borders. The left ventricle is normal in size. There is normal LV wall thickness. There is moderate global hypokinesis present. The inferior, inferolateral, and inferoseptal LV mai are severely hypokinetic. LVEF is 30-35%. No evidence of LV thrombus after administration of ultrasound enhancing agent. Constitutional Constitutional: no acute distress, morbidly obese and chronically ill appearing *Routine HEENT Exam Head: Present normocephalic and atraumatic ENT: Present mucous membranes moist *Routine Neck Exam Neck: Present supple, full ROM and normal carotid upstroke; Absent JVD, carotid bruit or lymphadenopathy *Routine Respiratory Exam Respiratory: Present rales, rhonchi, crackles, diminished air movement and symmetric chest movement *Routine Cardiovascular Exam Cardiovascular: Present RRR, Normal S1 and Normal S2; Absent murmur or gallop *Routine Abdominal Exam Abdominal: Present soft and normoactive bowel sounds; Absent tenderness, distended or organomegaly *Routine Extremities Exam Extremities: Present full ROM, pulses intact and normal capillary refill; Absent cyanosis, clubbing or edema *Routine Skin Exam Skin: Present intact and warm; Absent erythema *Routine Neurological Exam Neurological: Present alert, oriented X3 and CN II-XII intact; Absent sensory deficit or motor deficit Routine Psychiatric Exam Psychiatric: Present normal affect Progress Note: A&P Assessment and plan (1) Acute on chronic HFrEF (heart failure with reduced ejection fraction): Status: Acute (2) Elevated troponin: Status: Acute (3) Non-STEMI (non-ST elevated myocardial infarction): Status: Acute (4) Sepsis: Status: Acute (5) Pulmonary edema: Status: Acute (6) Abnormal cardiovascular stress test: Status: Acute (7) Acute hypoxic respiratory failure: Status: Acute (8) Pulmonary embolism: Status: Acute (9) Diabetes mellitus: Status: Acute (10) Elevated liver enzymes: Status: Acute (11) Elevated white blood cell count: Status: Acute (12) Pneumonia: Status: Acute (13) HTN (hypertension): Status: Chronic (14) Tobacco dependence syndrome: Status: Chronic (15) Edema: Status: Chronic Assessment and Plan Assessment and Plan for All Diagnoses:: Plan: 1. The patient was admitted to the hospital and found to have acute on chronic HFrEF. Her BNP is greater than 30,000. Bedside echocardiogram shows her EF is down to 20% from around 40% at the beginning of the year. She was being diuresed with IV Lasix and a milrinone drip. She has diuresed approximately 6 L since being in the hospital. Her milrinone was stopped at midnight last night to repeat echocardiogram off of milrinone to get a better estimation of her true ejection fraction. Continue IV Lasix at this time for continued diuresis as well as spironolactone. 2. Echocardiogram yesterday showed an ejection fraction of 50% but she was on milrinone which was causing her ejection fraction to improve while this medication was infusing. Repeat echocardiogram this morning off of milrinone shows her ejection fraction is 30 to 35%. She had is increased risk for sudden cardiac due to her severe LV dysfunction. She will need a LifeVest in place prior to discharge home. Will get LifeVest ordered. 3. Full echocardiogram showed elevated transaortic gradients with otherwise normal AV opening. Further evaluation with NICHOLAS is suggested to rule out subaortic membrane which can be done as an outpatient. 4. The patient's white blood cell count remains elevated. She is getting IV antibiotics. She does have a pneumonia. Will defer to the hospitalist and pulmonology. 5. The patient does have an elevated troponin consistent with a non-STEMI. She also has an abnormal Myoview stress test from March 2024 showing reversible ischemia. Very concerning for ischemic cardiomyopathy. Will plan to proceed with left cardiac catheterization tomorrow to evaluate her coronary artery disease. 6. The patient has been educated the risk and benefits of proceeding with left cardiac catheterization. The patient verbalizes understanding and is agreeable in proceeding with the procedure. 7. The patient will be n.p.o. after midnight in preparation for left cardiac catheterization. 8. Continue aspirin 81 mg daily and Lovenox for her acute coronary syndrome. 9. The patient does have elevated liver enzymes which is most likely hepatic congestion from her acute on chronic HFrEF. Will continue to follow. 10. Her blood pressure is well-controlled. 11. Will hold off on beta-jake at this time to avoid cardiogenic shock in this patient with known LV dysfunction. 12. Consider Entresto following left cardiac catheterization tomorrow. 13. Consider Jardiance 10 mg daily when she is euvolemic. 14. Further recommendations will be made pending the patient's response to treatment and results of left cardiac catheterization tomorrow. Thank you for the opportunity to help participate in the care of this patient. All recommendations and orders are per Dr. Fisher.
--- NOTE | 2024-09-07 14:54 | PC.WOUNDNOTE ---
ulcers measuring 1 cm to RLE ulcerations measuring up to 1.5 cm RLE ulcerations to RLE ulcerations to RLE measuring over 1 cm
--- NOTE | 2024-09-07 14:58 | PC.WOUNDNOTE ---
ulcerations to LLE measuring around 1 cm each ulcerations to LLE ulcerations to LLE multiple ulcerations to LLE LLE with multiple ulcerations and erythema
[2024-09-07] MEDS: SODIUM CHLORIDE 3% 15ML NEB 3 ML IH (15:12)
--- NOTE | 2024-09-07 16:12 | PC.NURSE ---
While obtaining consent for heart catheterization, pt stated that no one has explained procedure to her. Consent not obtained at this time. Consent to be obtained in AM after cardiology has spoke with pt about procedure.
[2024-09-07 17:02] LABS: POC Glucose,Bedside 150 (70-110)
--- NOTE | 2024-09-07 17:38 | EXP.ACUTE.PN ---
Subjective *Date: 09/07/24 *Time: 22:39 Interval history: Patient states he is feeling better today. On 4 L nasal cannula oxygen. Has responded well to diuresis. -4.7 L since admission. Hemoglobin stable. Denies nausea or vomiting. Tolerating p.o. intake. Weaning oxygen well. Afebrile. No fevers overnight Medical Exam Vital signs and Labs for Last 24 Hours: Vital Signs Temp Pulse Pulse Resp BP BP Pulse Ox 09/07/24 17:00 09/07/24 16:00 98.0 F 83 20 135/80 96 09/07/24 15:13 87 18 09/07/24 15:05 09/07/24 13:05 09/07/24 12:00 98.5 F 72 22 136/78 98 09/07/24 11:20 09/07/24 09:00 09/07/24 08:00 90 97 09/07/24 08:00 90 09/07/24 08:00 98.1 F 89 17 133/86 97 09/07/24 06:45 09/07/24 06:11 89 09/07/24 06:11 88 09/07/24 04:14 09/07/24 04:00 91 H 14 142/76 H 99 09/07/24 04:00 90 09/07/24 02:19 09/07/24 01:00 09/07/24 00:01 112 H 21 146/86 H 92 L 09/07/24 00:00 114 H 09/06/24 23:16 100 H 09/06/24 23:16 104 H 09/06/24 23:16 96 09/06/24 23:00 100 H 13 143/85 H 91 L 09/06/24 23:00 09/06/24 22:00 109 H 17 139/80 93 L 09/06/24 21:00 92 H 13 122/62 95 09/06/24 21:00 09/06/24 20:00 98.6 F 90 14 138/77 95 09/06/24 20:00 09/06/24 20:00 93 H 09/06/24 19:45 90 14 94 L 09/06/24 19:45 145/75 H 09/06/24 19:30 94 H 14 95 09/06/24 19:30 132/63 09/06/24 19:15 94 H 14 96 09/06/24 19:15 150/68 H 09/06/24 19:00 94 H 13 96 09/06/24 19:00 124/68 09/06/24 19:00 09/06/24 18:50 90 14 98 09/06/24 18:50 151/79 H 09/06/24 18:48 86/61 L 09/06/24 18:48 94 H 13 100 09/06/24 18:46 94 H 14 100 09/06/24 18:46 66/43 L 09/06/24 18:45 89 13 100 09/06/24 18:45 93 H 09/06/24 18:45 98 H 09/06/24 18:45 96 09/06/24 18:30 58 L 12 98 09/06/24 18:17 116/77 09/06/24 18:17 76 17 100 09/06/24 18:15 71 14 100 09/06/24 18:00 95 H 16 98 09/06/24 17:59 178/90 H 09/06/24 17:59 96 H 16 95 09/06/24 17:46 77 15 98 O2 Del Method O2 Flow Rate 09/07/24 17:00 Room Air 09/07/24 16:00 Room Air 09/07/24 15:13 09/07/24 15:05 Room Air 09/07/24 13:05 Room Air 09/07/24 12:00 Room Air 09/07/24 11:20 Room Air 09/07/24 09:00 Nasal Cannula 4 09/07/24 08:00 Nasal Cannula 4 09/07/24 08:00 09/07/24 08:00 Nasal Cannula 4 09/07/24 06:45 Nasal Cannula 4 09/07/24 06:11 09/07/24 06:11 09/07/24 04:14 Nasal Cannula 4 09/07/24 04:00 Nasal Cannula 4 09/07/24 04:00 09/07/24 02:19 Nasal Cannula 4 09/07/24 01:00 Nasal Cannula 4 09/07/24 00:01 Nasal Cannula 4 09/07/24 00:00 09/06/24 23:16 09/06/24 23:16 09/06/24 23:16 Nasal Cannula 4 09/06/24 23:00 Nasal Cannula 4 09/06/24 23:00 Nasal Cannula 4 09/06/24 22:00 Nasal Cannula 4 09/06/24 21:00 Nasal Cannula 4 09/06/24 21:00 Nasal Cannula 4 09/06/24 20:00 Nasal Cannula 5 09/06/24 20:00 Nasal Cannula 4 09/06/24 20:00 09/06/24 19:45 09/06/24 19:45 09/06/24 19:30 09/06/24 19:30 09/06/24 19:15 09/06/24 19:15 09/06/24 19:00 09/06/24 19:00 09/06/24 19:00 Nasal Cannula 4 09/06/24 18:50 09/06/24 18:50 09/06/24 18:48 09/06/24 18:48 09/06/24 18:46 09/06/24 18:46 09/06/24 18:45 09/06/24 18:45 09/06/24 18:45 09/06/24 18:45 Nasal Cannula 4 09/06/24 18:30 09/06/24 18:17 09/06/24 18:17 09/06/24 18:15 09/06/24 18:00 09/06/24 17:59 09/06/24 17:59 09/06/24 17:46 Intake and Output 09/07/24 09/07/24 09/07/24 07:59 15:59 23:59 Intake Total 550 / 1380 780 / 1380 50 / 1380 Output Total 300 / 700 200 / 700 200 / 700 Balance 250 / 680 580 / 680 -150 / 680 Intake: Intake, Oral Amount 500 / 1040 540 / 1040 Intake, Total IV Amount 50 / 340 240 / 340 50 / 340 Azithromycin 500 mg In 0.9 % 240 / 240 Sodium Chloride 250 ml @ 250 mls/hr IV Q24H JENARO Rx#:[id number] Piperacillin/Tazo 3.375 gm In 0 50 / 100 50 / 100 .9 % Sodium Chloride 50 ml @ 100 mls/hr IV Q6H JENARO Rx#: [id number] Output: Output, Urine Amount 300 / 700 200 / 700 200 / 700 Other: Weight 175.9 kg Patient Weight 09/07/24 23:59 Weight 175.9 kg Laboratory Results - last 24 hr 09/07/24 06:04: WBC 22.5 H*, RBC 4.71, Hgb 9.6 L, Hct 32.5 L, MCV 69.0 L, MCH 20.4 L, MCHC 29.5 L, RDW 18.0 H, Plt Count 535 H, MPV 10.3, Neut % (Auto) 84.4 H, Lymph % (Auto) 7.7 L, Mclean % (Auto) 7.2, Eos % (Auto) 0.0 L, Baso % (Auto) 0.1, Neut # (Auto) 19.0 H, Lymph # (Auto) 1.7, Mclean # (Auto) 1.6 H, Eos # (Auto) 0.0, Baso # (Auto) 0.0, Total Counted 100, Neutrophils % (Manual) 83 H, Lymphocytes % (Manual) 12, Monocytes % (Manual) 5, Platelet Estimate Moderate increase, Hypochromasia 2+, Microcytosis 1+, Sodium 139, Potassium 3.6, Chloride 103, Carbon Dioxide 32 H, Anion Gap 7.6, BUN 21 H, Creatinine 1.00, Estimated Creat Clear 74, Estimated GFR 61, Est GFR ( Amer) 74, Glucose 139 H D, Calcium 8.6, Magnesium 2.0 D, Total Bilirubin 1.1, AST 104 H, ALT 136 H, Alkaline Phosphatase 80, Total Protein 6.5, Albumin 3.3 L, Globulin 3.2, Albumin/Globulin Ratio 1.0 L 09/07/24 06:09: Procalcitonin 4.02 H 09/07/24 12:09: POC Glucose 155 H 09/07/24 16:43: POC Glucose 150 H I & O for Labs for Last 24 Hours: Intake & Output 09/04/24 09/05/24 09/06/24 09/07/24 23:59 23:59 23:59 23:59 Intake Total 2340.261 / 2890.261 1380 / 1380 Output Total 7300 / 7300 700 / 700 Balance -4959.739 / -4409.739 680 / 680 Weight 172.365 kg 178.2 kg 175.9 kg Microbiology Reports for the Last 24 Hours: Microbiology 09/06/24 16:25 Blood Blood Culture - Preliminary NO GROWTH AFTER 24 HOURS 09/06/24 16:30 Blood Blood Culture - Preliminary NO GROWTH AFTER 24 HOURS 09/05/24 21:10 Blood Blood Culture - Preliminary Gram Positive Cocci 09/06/24 01:11 Leg,Right Gram Stain - Final 09/06/24 01:11 Leg,Right Wound Culture - Preliminary 09/05/24 21:20 Blood Blood Culture - Preliminary NO GROWTH AFTER 24 HOURS Constitutional: Present mild distress, morbidly obese, chronically ill appearing and cooperative Head: Present atraumatic ENT: Present normal exam Neck: Present normal inspection Respiratory: Present decreased breath sounds, distant breath sounds, able to speak in complete sentences and symmetric chest movement; Absent rhonchi or wheezes Cardiac: Present Reg Rate and Rhythm; Absent No Murmur GI: Present soft and normal bowel sounds; Absent distention or tenderness Rectal (female): Present deferred (female): Present deferred Extremities: Present edema (Bilateral lower extremities); Absent calf tenderness Skin: Present erythema (Bilateral lower extremities) and dry Comment:: Venous stasis wounds bilateral lower extremities Neuro: Present Weakness, awake, oriented x 3 and moves all extremities Assessment and Plan *Assessment and plan (1) Acute on chronic HFrEF (heart failure with reduced ejection fraction): Status: Acute Category: Medical Code(s): I50.23 - Acute on chronic systolic (congestive) heart failure (2) Cardiomyopathy: Status: Acute Qualifiers: Cardiomyopathy type: dilated Qualified Code(s): I42.0 - Dilated cardiomyopathy Category: Medical Code(s): I42.9 - Cardiomyopathy, unspecified (3) Pulmonary edema: Status: Acute Qualifiers: Chronicity: acute Qualified Code(s): J81.0 - Acute pulmonary edema Category: Medical Code(s): J81.1 - Chronic pulmonary edema (4) Non-STEMI (non-ST elevated myocardial infarction): Status: Acute Category: Medical Code(s): I21.4 - Non-ST elevation (NSTEMI) myocardial infarction (5) Elevated troponin: Status: Acute Category: Medical Code(s): R79.89 - Other specified abnormal findings of blood chemistry (6) Acute hypoxic respiratory failure: Status: Acute Category: Medical Code(s): J96.01 - Acute respiratory failure with hypoxia (7) Respiratory failure with hypoxia: Status: Acute Qualifiers: Chronicity: acute on chronic Qualified Code(s): J96.21 - Acute and chronic respiratory failure with hypoxia Category: Medical Code(s): J96.91 - Respiratory failure, unspecified with hypoxia (8) HTN (hypertension): Status: Chronic Qualifiers: Hypertension type: essential hypertension Qualified Code(s): I10 - Essential (primary) hypertension Category: Medical Code(s): I10 - Essential (primary) hypertension (9) Edema: Status: Chronic Qualifiers: Edema type: unspecified Qualified Code(s): R60.9 - Edema, unspecified Category: Medical Code(s): R60.9 - Edema, unspecified (10) Tobacco dependence syndrome: Status: Chronic Category: Medical Code(s): F17.200 - Nicotine dependence, unspecified, uncomplicated (11) Obesity: Status: Acute Qualifiers: Obesity classification: adult class 3 (BMI >= 40) Obesity type: unspecified obesity type Qualified Code(s): E66.813 - Obesity, class 3; Z68.41 - Body mass index [BMI] 40.0-44.9, adult Category: Medical Code(s): E66.9 - Obesity, unspecified (12) SOB (shortness of breath): Status: Acute Category: Medical Code(s): R06.02 - Shortness of breath (13) Elevated white blood cell count: Status: Acute Qualifiers: Leukocytosis type: unspecified Qualified Code(s): D72.829 - Elevated white blood cell count, unspecified Category: Medical Code(s): D72.829 - Elevated white blood cell count, unspecified (14) Elevated liver enzymes: Status: Acute Category: Medical Code(s): R74.8 - Abnormal levels of other serum enzymes (15) Sepsis: Status: Acute Category: Medical Code(s): A41.9 - Sepsis, unspecified organism (16) Pulmonary embolism: Status: Acute Category: Medical Code(s): I26.99 - Other pulmonary embolism without acute cor pulmonale (17) Iron deficiency anemia: Status: Acute Category: Medical Code(s): D50.9 - Iron deficiency anemia, unspecified (18) Diabetes mellitus: Status: Acute Category: Medical Code(s): E11.9 - Type 2 diabetes mellitus without complications Plan Ms. Painting is a 44-year-old female who presented to the emergency department yesterday with complaints of worsening shortness of breath and cough. She stated that this has been going on for approximately 3 days, but she has been dealing with bilateral lower extremity edema for a few months now. She has a primary medical history of hypertension, asthma, tobacco use, methamphetamine use, hypertension, COPD, cardiomegaly, reduced EF. When asked about recent visits to her PCP and recommendations for follow-up with pulmonology and cardiology patient states she has been unable to make any appointments. Upon arrival to the ED yesterday she was found to be hypoxic, saturating 86% on room air. She was placed on a nonrebreather. Has shown good response to diuretics. -4.7 L since admission. Weaning oxygen. On 4 L oxygen this morning. Continues to require inpatient management. Continuing broad-spectrum antibiotics due to positive blood cultures with repeat cultures pending. Suspect possibly contaminant versus true infection. White count stable today. De-escalate from ICU to MedSurg. Problems addressed as follows: #Acute on chronic HFrEF exacerbation #Pulmonary edema Pulmonary embolism #Shortness of breath #Respiratory failure with hypoxia #Edema Type II NSTEMI secondary to CHF exacerbation ?Patient was taken to the ICU and placed on Vapotherm, which for which she responded well to. Able to wean oxygen. Showing improvement today. - BNP greater than 30,000 on admission. - Discussed case with pulmonology, continue supplemental oxygen as needed for goal sats greater than 90%. Weaned to room air after rounds. Continue anticoagulation due to right lower lobe subsegmental PE. Will need 3 months of anticoagulation. Transition to oral prior to discharge. DuoNebs every 6 hours scheduled. - HFrEF exacerbation. Continue diuresis. Discussed case with cardiology, recommend considering Entresto following left heart cath tomorrow and Jardiance once patient is euvolemic. - Full echo showed EF of 50% but on milrinone at the time. Repeat this morning shows EF 30 to 35%. Will need LifeVest prior to discharge home. Planning for left heart cath in the morning to evaluate for ischemic etiology underlying her cardiomyopathy. #Fever #Sepsis #Leukocytosis Transaminitis ?Patient white count on admission 32.4, improved to 22 this morning. Kidney function normal with BUN 21, creatinine 1.0. Liver enzymes improving with bilirubin 1.1, AST 104, ALT 136 - Pulmonary blood cultures show anaerobic gram-positive cocci, Streptococcus pyogenes, aerobic gram-positive cocci. Will continue to monitor for sensitivity. ?Patient is being empirically treated with Zosyn 3.375 g every 6 hours, azithromycin 500 mg every 24 hours. - Unclear source of infection. Suspect possibly cellulitis of bilateral lower extremities given wounds on shins. - Repeat blood cultures obtained 09/06 still pending, negative at this time. - If no improvement in white count in the morning, consider adding vancomycin. Systemically appears like she is improving -Procalcitonin ordered for the morning along with CRP ?CBC, CMP ordered for the a.m. - Hep C antibody reactive in December 2023 #Pulmonary embolism ? Patient had CTA of chest in the ED, found to have PE. Patient started on therapeutic Lovenox 180 mg every 12 hours. #Tobacco use disorder ? Patient states that she has not smoked 3 days prior to coming to the hospital. Nicotine patches ordered as needed. #Obesity ? Complicates all aspects of care. ? Patient is morbidly obese with a BMI of 58. #Diabetes mellitus, type II ? Patient no known history of diabetes, A1c 7.3%. ? Blood sugars have been running 150s to 200s consistently. ? ACHS fingersticks, sliding scale insulin #Iron deficient anemia ? Patient found to be anemic on admission, she states this is a chronic issue for her she is prescribed iron 325 mg daily. ? Initial hemoglobin 10.6, repeat today 9.6, stable. -MCV low at 69 ? Threshold for transfusion hemoglobin less than 7.0. ? Iron studies obtained, iron saturation 5.89, iron 22, folate 11.1. - Administer Venofer 200 mg IV once during admission Full code PT/OT eval for weakness Cardiology and pulmonology consulted Cardiac diet Lovenox VTE
--- NOTE | 2024-09-07 17:45 | PEERSUPPORT ---
Peer Support Note Patient Information Patient Information: DOS: 09/07/2024 ? Pt stated she had not been feeling well three days before coming to the hospital. Says her boyfriend came home from work to find her not speaking and blue lips, he called his sister to come check her vitals, after they called for EMS. ? Pt shared: -has been in recovery for 5 years admits to only taken concerta without prescription. ? Dr. Abena Méndez at bedside, ps will return for visit. ? 4:00 pm Ps returned, pt had visitors. Ps will follow up on 09/08/2024. ?
--- NOTE | 2024-09-07 18:37 | PC.NURSE ---
pt is A&Ox4. pt came over from the unit today. we have been diuresing her today and had significant output. cabezas catheter was removed per dr cassidy. pt is ambulating to bathroom and tolerating well. pt has been on room air and her O2 sats have stayed in the upper 90s. achs has improved this evening and did not need coverage. pt has no other needs at this time. call light within reach. safety measures in place.
[2024-09-07] MEDS: PANTOPRAZOLE 40MG VIAL 40 MG IV (20:37)
[2024-09-07] MEDS: SODIUM CHLORIDE 0.9% 10ML VIAL 10 ML IV (20:37)
[2024-09-07 20:53] LABS: POC Glucose,Bedside 131 (70-110)
[2024-09-08] VITALS (19 sets, daily range): BP systolic 132–178; BP diastolic 72–102; PULSE 75–92; RESP 16–22; TEMP 36.5–36.8; O2SAT 88–100; BMI 54.3
--- NOTE | 2024-09-08 01:16 | PC.NURSE ---
Patient O2 sat dropped to 85%, placed 2L NC at this time.
--- NOTE | 2024-09-08 03:57 | PC.NURSE ---
Alert and oriented. Complained of leg pain, treated per mar. Patient stated she was uncomfortable and wished she could get some sleep, Angelica aware and treated per apr. IV abx. NSR on tele with PVCs. Son at bedside throughout night. Uses bedside commode. No other complaints. Call light in reach. Remains on 2L NC.
[2024-09-08 05:55] LABS: POC Glucose,Bedside 193 (70-110)
[2024-09-08 05:55] LABS: POC Glucose,Bedside 158 (70-110)
[2024-09-08] MEDS: PIPERACILLIN/TAZO 3.375 GM in 0.9 % SODIUM CHLORIDE 50 ML IV ×3 (06:29→23:52)
[2024-09-08 06:39] LABS: POC Glucose,Bedside 98 (70-110)
--- NOTE | 2024-09-08 07:11 | IR_ITS ---
APPROVED REPORT Patient Location: Inpatient PROCEDURES Left heart catheterization Left ventriculogram Selective coronary angiogram Informed consent was obtained prior to the procedure. COMPLICATIONS NONE Estimated Blood Loss: LESS THAN 10 ML TECHNIQUE One percent lidocaine used to anesthetize the right anterior aspect of the wrist. The right radial artery was accessed via the Seldinger technique. A 6 [place] sheath was placed in the right radial artery. 2.5 mg of Verapamil, 800 mcg of nitroglycerin, 1mg Lidocaine and 5000 U Heparin were given through the arterial sheath. The JL3 catheter was also used to perform left heart catheterization, left ventriculogram and selective coronary angiogram. At the end of the procedure the sheath was removed good hemostasis was achieved using Traclet band, patient was transferred to the postop holding area in stable condition. ANGIOGRAPHIC RESULTS The left main artery Normal The left anterior descending artery Large normal The circumflex artery Large normal The right coronary artery Dominant normal The SHIRLEY ventriculogram reveals Dilated reduced at 35% The left ventricular end-diastolic pressure 25 mmHg IMPRESSION Normal coronary arteries Dilated ventricle with elevated LVEDP and reduced ejection fraction PLAN 1. Continue medical management 2. Additional workup for etiology of LV dysfunction if warranted Electronically signed by : David Brown MD 09/08/2024 12:58:30
[2024-09-08 07:19] LABS: C-Reactive Protein 65.3 mg/L (0-4)
[2024-09-08 07:31] LABS: Procalcitonin 2.04 ng/mL (0.0-2.0)
[2024-09-08] MEDS: IRON SUCROSE COMPLEX 200 MG in 0.9 % SODIUM CHLORIDE 100 ML 220 MG IV (09:30)
[2024-09-08] MEDS: SPIRONOLACTONE 25MG TABLET 25 MG PO (09:31)
[2024-09-08] MEDS: ASPIRIN EC 81MG TABLET 81 MG PO (09:31)
--- NOTE | 2024-09-08 10:04 | P.PN_ITS ---
Subjective *Date: 09/08/24 *Time: 11:52 Interval history: No acute respiratory events overnight. Denies any new respiratory complaints. Pulmonology Exam Inpatient Vital signs and Labs for Last 24 Hours: Temp Pulse Resp BP Pulse Ox O2 Del Method O2 Flow Rate 97.8 F 84 16 165/95 H 92 L Room Air 3 09/08/24 08:00 09/08/24 08:00 09/08/24 08:00 09/08/24 08:00 09/08/24 08:00 09/08/24 08:00 09/08/24 06:14 FiO2 35 09/06/24 12:25 Laboratory Results - last 24 hr 09/06/24 19:54: POC Glucose 193 H 09/07/24 05:53: POC Glucose 158 H 09/07/24 06:04: Total Counted 100, Neutrophils % (Manual) 83 H, Lymphocytes % (Manual) 12, Monocytes % (Manual) 5, Platelet Estimate Moderate increase, Hypochromasia 2+, Microcytosis 1+ 09/07/24 06:09: Procalcitonin 4.02 H 09/07/24 12:09: POC Glucose 155 H 09/07/24 16:43: POC Glucose 150 H 09/07/24 20:38: POC Glucose 131 H 09/08/24 06:19: C-Reactive Protein 65.3 H, Procalcitonin 2.04 H 09/08/24 06:32: POC Glucose 98 Temp Pulse Resp BP Pulse Ox O2 Del Method O2 Flow Rate 98.0 F 90 27 H 106/56 L 94 L Vapotherm 30 09/06/24 08:00 09/06/24 08:00 09/06/24 07:00 09/06/24 08:00 09/06/24 08:00 09/06/24 08:00 09/06/24 08:00 FiO2 50 09/06/24 07:00 Laboratory Results - last 24 hr 09/05/24 21:18: VBG pH 7.41, VBG pCO2 33.6 L, VBG pO2 36.1, VBG HCO3 20.7 L, VBG Total CO2 21.8 L, VBG O2 Saturation 65.2, VBG Base Excess -3.9 L, VBG Lactic Acid 3.3 H 09/05/24 21:19: WBC 32.4 H*, RBC 5.52 H, Hgb 10.6 L, Hct 37.7, MCV 68.3 L, MCH 19.2 L, MCHC 28.1 L, RDW 18.5 H, Plt Count 562 H, MPV 10.6 H, Neut % (Auto) 92.5 H, Lymph % (Auto) 2.8 L, [place] % (Auto) 3.2, Eos % (Auto) 0.0 L, Baso % (Auto) 0.2, Neut # (Auto) 30.0 H, Lymph # (Auto) 0.9, [place] # (Auto) 1.1 H, Eos # (Auto) 0.0, Baso # (Auto) 0.1, Total Counted 100, Neutrophils % (Manual) 90 H, Lymphocytes % (Manual) 8 L, Monocytes % (Manual) 2, Platelet Estimate Normal, RBC Morphology Normal, Sodium 129 L, Potassium 4.4, Chloride 98, Carbon Dioxide 22, Anion Gap 13.4, BUN 15, Creatinine 0.90, Estimated Creat Clear 85, Estimated GFR 69, Est GFR ( Amer) 83, Glucose 158 H, Calcium 8.9, Total Bilirubin 2.4 H, AST 123 H, ALT 86 H, Alkaline Phosphatase 99, Troponin I 0.19 H, NT-Pro-B Natriuret Pep > 06898 H, Total Protein 7.8, Albumin 4.1, Globulin 3.7 H, Albumin/Globulin Ratio 1.1, HCG, Quant < 2 09/05/24 22:50: Chlamy pneumoniae PCR Not detected, Adenovirus (PCR) Not detected, B. pertussis DNA (PCR) Not detected, Coronavirus OC43 (PCR) Not detected, Coronavirus HKU1 (PCR) Not detected, Coronavirus 229E (PCR) Not detected, SARS-CoV-2 (PCR) Not detected, Coronavirus NL63 (PCR) Not detected, Human Metapneumovir PCR Not detected, Influenza A (H1) PCR Not detected, Influ A (H1N1/09) PCR Not detected, Influenza A (H3) PCR Not detected, Influenza Type A (PCR) Not detected, Influenza Type B (PCR) Not detected, M. pneumoniae (PCR) Not detected, Parainfluenza 1 (PCR) Not detected, Parainfluenza 2 (PCR) Not detec amelia, Parainfluenza 3 (PCR) Not detected, Parainfluenza 4 (PCR) Not detected, RSV (PCR) Not detected, Entero/Rhino (PCR) Not detected 09/06/24 01:03: Troponin I 0.22 H 09/06/24 01:07: POC Glucose 138 H 09/06/24 03:38: Sodium 130 L, Potassium 3.4 L D, Chloride 98, Carbon Dioxide 25, Anion Gap 10.4, BUN 16, Creatinine 0.80, Estimated Creat Clear 92, Estimated GFR 79, Est GFR ( Amer) 95, Glucose 173 H, Lactate 2.1, Calcium 8.5, Magnesium 1.5 L, Troponin I 0.25 H 09/06/24 05:37: WBC 21.6 H* D, RBC 4.80, Hgb 9.5 L D, Hct 32.6 L, MCV 67.9 L, MCH 19.8 L, MCHC 29.1 L, RDW 17.4, Plt Count 489 H, MPV 10.3, Neut % (Auto) 94.7 H, Lymph % (Auto) 3.1 L, [place] % (Auto) 0.9 L, Eos % (Auto) 0.0 L, Baso % (Auto) 0.2, Neut # (Auto) 20.5 H, Lymph # (Auto) 0.7, [place] # (Auto) 0.2, Eos # (Auto) 0.0, Baso # (Auto) 0.1, Total Counted 100, Neutrophils % (Manual) 97 H, Lymphocytes % (Manual) 2 L, Monocytes % (Manual) 1 L, Platelet Estimate Slight increase, Hypochromasia 2+, Microcytosis 1+, Sodium 134 L, Potassium 3.3 L, Chloride 101, Carbon Dioxide 26, Anion Gap 10.3, BUN 16, Creatinine 0.90, Estimated Creat Clear 82, Estimated GFR 69, Est GFR ( Amer) 83, Glucose 197 H, Lactate 1.9, Calcium 8.7, Magnesium 1.6, Total Bilirubin 1.9 H, AST 122 H , ALT 100 H, Alkaline Phosphatase 106, Total Protein 6.2 L, Albumin 3.3 L D, Globulin 2.9, Albumin/Globulin Ratio 1.1, Triglycerides 79, Cholesterol 59 L, LDL Cholesterol Direct < 30.0 L, VLDL Cholesterol 16, HDL Cholesterol 27 L, Cholesterol/HDL Ratio 2.2, Vitamin B12 907, Folate 11.10 09/06/24 05:46: Specimen Source Right radial, O2 % 30l 70%, ABG pH 7.48 H, ABG pCO2 32.4 L, ABG pO2 128.5 H, ABG HCO3 23.5, ABG Total CO2 24.5, ABG O2 Saturation 99, ABG Base Excess -0.1, Dannie Test Acceptable 09/06/24 06:08: POC Glucose 208 H I & O for Labs for Last 24 Hours: Intake & Output 09/05/24 09/06/24 09/07/24 09/08/24 23:59 23:59 23:59 23:59 Intake Total 2340.261 / 2890.261 1960 / 2240 280 / 280 Output Total 7300 / 7300 3600 / 3600 300 / 300 Balance -4959.739 / -4409.739 -1640 / -1360 -20 / -20 Weight 380 lb 392 lb 13.82 oz 387 lb 12.69 oz 366 lb 14.4 oz Intake & Output 09/03/24 09/04/24 09/05/24 09/06/24 23:59 23:59 23:59 23:59 Intake Total 62.261 / 62.261 Output Total 5800 / 5800 Balance -5737.739 / -5737.739 Weight 380 lb 392 lb 13.82 oz Microbiology Reports for the Last 24 Hours: Microbiology 09/06/24 00:45 Anus CRE Surveillance Culture - Final Negative 09/07/24 15:16 Sputum - Expectorated Sputum Gram Stain - Final 09/05/24 21:20 Blood Blood Culture - Preliminary NO GROWTH AFTER 48 HOURS 09/06/24 16:25 Blood Blood Culture - Preliminary NO GROWTH AFTER 24 HOURS 09/06/24 16:30 Blood Blood Culture - Preliminary NO GROWTH AFTER 24 HOURS 09/05/24 21:10 Blood Blood Culture - Preliminary Gram Positive Cocci 09/06/24 01:11 Leg,Right Gram Stain - Final 09/06/24 01:11 Leg,Right Wound Culture - Preliminary Constitutional: Present severe distress and morbidly obese Head: Present normocephalic and atraumatic ENT: Present normal exam, normal oropharynx and mucous membranes moist Neck: Present normal inspection and full ROM Respiratory: Present crackles, normal respiratory effort and able to speak in complete sentences; Absent prolonged expiratory phase, respiratory distress or diminished air movement Cardiac: Present S1/S2, Tachycardia and radial pulses present GI: Present soft and distention; Absent tenderness or guarding Rectal (female): Present deferred (female): Present deferred Skin: Present intact; Absent cyanosis or jaundice Neuro: Present alert, awake and oriented x 3 Extremities: Present normal inspection; Absent clubbing or cyanosis Psychiatric: Present normal affect and cooperative Assessment and Plan *Assessment and plan (1) Pulmonary edema: Status: Acute Qualifiers: Chronicity: acute Qualified Code(s): J81.0 - Acute pulmonary edema Category: Medical Code(s): J81.1 - Chronic pulmonary edema (2) Acute hypoxic respiratory failure: Status: Acute Category: Medical Code(s): J96.01 - Acute respiratory failure with hypoxia (3) Pulmonary embolism: Status: Acute Category: Medical Code(s): I26.99 - Other pulmonary embolism without acute cor pulmonale Plan Ms. Painting is a 44-year-old female with reported history of tobacco abuse hypertension asthma presented to the ER with worsening respiratory distress cough found to be needing new oxygen requirements and pulmonary was called for further evaluation and management. Current smoker greater than [id number] smoking history not using any oxygen supplementation at baseline. Low-grade fevers at 101.8. Neutrophilic predominant leukocytosis upon admission. Comprehensive respiratory viral PCR panel negative Blood gas upon admission did not show any hypoxic/hypercarbic respiratory vania lure, arterial, pH of 7.48 and pCO2 32.4 and a PO2 128.5 CT chest upon admission bilateral groundglass opacity and septal thickening concerning for volume overload/pulmonary edema. Dilated right ventricle. Concern for right lower lobe segmental/subsegmental pulmonary embolism. Currently on milrinone and Zosyn. Interval update: No acute respiratory vents overnight. Needed oxygen supplementation overnight. Weaned to room air this morning. Tolerating well. Continue to receive full dose anticoagulation for likely pulmonary embolism. Blood cultures from admission growing Streptococcus pyogenes. Repeat blood cultures no growth. Plan: Continue oxygen supplementation as needed to maintain O2 saturation of 90% and above. Weaned to room air this morning. Continue full dose anticoagulation for right lower lobe subsegmental pulmonary embolism x 3 months for likely provoked PE. Advair 500 inhaler Antibiotic management as per primary team. Volume optimization as per primary team and cardiology. # Thank you for involving pulmonary in this patient care. Will continue to follow.
[2024-09-08] MEDS: AZITHROMYCIN 500 MG in 0.9 % SODIUM CHLORIDE 250 ML 250 MG IV (11:10)
[2024-09-08 11:29] LABS: POC Glucose,Bedside 100 (70-110)
--- NOTE | 2024-09-08 12:00 | PC.NURSE ---
pt to cardiac cath technician
[2024-09-08] MEDS: HEPARIN 1,000 UNITS/500ML NS (CATH LAB) 3000 UNIT IV (12:19)
[2024-09-08] MEDS: NITROGLYCERIN 800MCG/8ML SYR (CATH LAB) 800 MCG IA (12:20)
[2024-09-08] MEDS: LIDOCAINE 1% 10ML MDV 10 ML IJ (12:20)
[2024-09-08] MEDS: HEPARIN 1,000 UNITS/ML 10ML VIAL (CATH LAB) 5000 UNIT IV (12:20)
[2024-09-08] MEDS: VERAPAMIL 2.5MG/ML 2ML VIAL 2.5 MG IV (12:20)
[2024-09-08] MEDS: 0.9 % SODIUM CHLORIDE 500 ML 25 ML IV (12:21)
[2024-09-08 12:26] LABS: Hematocrit 34.8 % (37.0-47.0); Hemoglobin 9.8 g/dL (12.2-16.2); Immature Granulocytes % 0.4 %; Mean Corpuscular HGB Conc 28.2 g/dL (31.8-35.4); Mean Corpuscular Hemoglobin 19.9 pg (27.0-31.2); Mean Corpuscular Volume 70.6 fl (81-99); Nucleated Red Blood Cells % 0 %; Platelet Count 525 K/mm3 (142-424); Red Blood Count 4.93 M/mm3 (4.20-5.40); Red Cell Distribution Width-SD 44.9 fL; White Blood Count 11.0 K/mm3 (4.8-10.8)
[2024-09-08 12:35] LABS: Anion Gap 8.1 mEq/L (5-15); Blood Urea Nitrogen 18 mg/dl (7-17); Calcium 8.6 mg/dl (8.4-10.2); Carbon Dioxide 35 mmol/L (22.0-30.0); Chloride 100 mmol/L (98-107); Creatinine Clearance Estimated 92 mL/min (50-200); Creatinine,Serum 0.80 mg/dl (0.52-1.04); Estimated Glomerular Filt Rate 79 ml/min (>60); GFR (African American) 95 ML/MIN (>60); Glucose 92 mg/dl (74-100); Potassium 4.1 mmoL/L (3.5-5.1); Sodium 139 mmol/L (136-145)
[2024-09-08] MEDS: FENTANYL 100MCG/2ML VIAL 50 MCG IV (12:41)
[2024-09-08] MEDS: MIDAZOLAM HCL 1MG/ML 5ML VIAL 1 MG IV (12:41)
[2024-09-08] MEDS: IOPAMIDOL-370 (76%);100ML BOTTLE 50 ML IV (13:59)
--- NOTE | 2024-09-08 14:20 | EXP.CARD.PN ---
Subjective Subjective Date: 09/08/24 Time: 10:30 Principal diagnosis: acute on chronic HFrEF, pneumonia Interval history: This is a 42-year-old female who presented to the emergency department with complaints of shortness of breath. She was found to have an elevated troponin and acute on chronic HFrEF as well as an elevated white blood cell count. The patient was treated with IV Lasix and milrinone initially. Her milrinone has been stopped and she remains on IV Lasix. She is continued to diurese. She is scheduled to undergo left cardiac catheterization to rule out ischemia as the cause of her cardiomyopathy. She states that her shortness of breath and edema have significantly improved since being in the hospital. She denies any chest pain or pressure. She denies any fever, chills, nausea, vomiting or diarrhea. She has remained afebrile. Exam Data for Last 24 hours Vital signs and Labs for Last 24 Hours: Temp Pulse Resp BP Pulse Ox O2 Del Method O2 Flow Rate 97.8 F 81 18 141/100 H 99 Nasal Cannula 4 09/08/24 08:00 09/08/24 13:05 09/08/24 13:05 09/08/24 13:05 09/08/24 13:05 09/08/24 13:05 09/08/24 13:05 FiO2 35 09/06/24 12:25 Laboratory Results - last 24 hr 09/06/24 19:54: POC Glucose 193 H 09/07/24 05:53: POC Glucose 158 H 09/07/24 16:43: POC Glucose 150 H 09/07/24 20:38: POC Glucose 131 H 09/08/24 06:19: WBC 11.0 H D, RBC 4.93, Hgb 9.8 L, Hct 34.8 L, MCV 70.6 L, MCH 19.9 L, MCHC 28.2 L, RDW 18.8 H, Plt Count 525 H, MPV 10.6 H, Neut % (Auto) 72.2, Lymph % (Auto) 18.3, [place] % (Auto) 7.9, Eos % (Auto) 0.8, Baso % (Auto) 0.4, Neut # (Auto) 8.0 H, Lymph # (Auto) 2.0, [place] # (Auto) 0.9, Eos # (Auto) 0.1, Baso # (Auto) 0.0, Sodium 139, Potassium 4.1, Chloride 100, Carbon Dioxide 35 H, Anion Gap 8.1, BUN 18 H, Creatinine 0.80, Estimated Creat Clear 92, Estimated GFR 79, Est GFR ( Amer) 95 D, Glucose 92, Calcium 8.6, C-Reactive Protein 65.3 H, Procalcitonin 2.04 H 09/08/24 06:32: POC Glucose 98 09/08/24 11:13: POC Glucose 100 I & O for Last 24 hours: Intake & Output 09/05/24 09/06/24 09/07/24 09/08/24 23:59 23:59 23:59 23:59 Intake Total 2340.261 / 2890.261 1960 / 2240 400 / 400 Output Total 7300 / 7300 3600 / 3600 300 / 300 Balance -4959.739 / -4409.739 -1640 / -1360 100 / 100 Weight 380 lb 392 lb 13.82 oz 387 lb 12.69 oz 366 lb 14.4 oz Microbiology Reports for the Last 24 Hours: Microbiology 09/06/24 00:45 Anus CRE Surveillance Culture - Final Negative 09/07/24 15:16 Sputum - Expectorated Sputum Gram Stain - Final 09/05/24 21:20 Blood Blood Culture - Preliminary NO GROWTH AFTER 48 HOURS 09/06/24 16:25 Blood Blood Culture - Preliminary NO GROWTH AFTER 24 HOURS 09/06/24 16:30 Blood Blood Culture - Preliminary NO GROWTH AFTER 24 HOURS Constitutional Constitutional: no acute distress, morbidly obese and chronically ill appearing *Routine HEENT Exam Head: Present normocephalic and atraumatic ENT: Present mucous membranes moist *Routine Neck Exam Neck: Present supple, full ROM and normal carotid upstroke; Absent JVD, carotid bruit or lymphadenopathy *Routine Respiratory Exam Respiratory: Present rales, rhonchi, crackles, diminished air movement and symmetric chest movement *Routine Cardiovascular Exam Cardiovascular: Present RRR, Normal S1 and Normal S2; Absent murmur or gallop *Routine Abdominal Exam Abdominal: Present soft and normoactive bowel sounds; Absent tenderness, distended or organomegaly *Routine Extremities Exam Extremities: Present full ROM, pulses intact and normal capillary refill; Absent cyanosis, clubbing or edema *Routine Skin Exam Skin: Present intact and warm; Absent erythema *Routine Neurological Exam Neurological: Present alert, oriented X3 and CN II-XII intact; Absent sensory deficit or motor deficit Routine Psychiatric Exam Psychiatric: Present normal affect Progress Note: A&P Assessment and plan (1) Pulmonary edema: Status: Acute (2) Acute hypoxic respiratory failure: Status: Acute (3) Acute on chronic HFrEF (heart failure with reduced ejection fraction): Status: Acute (4) Elevated troponin: Status: Acute (5) Non-STEMI (non-ST elevated myocardial infarction): Status: Acute (6) Sepsis: Status: Acute (7) Abnormal cardiovascular stress test: Status: Acute (8) Pulmonary embolism: Status: Acute (9) Diabetes mellitus: Status: Acute (10) Elevated liver enzymes: Status: Acute (11) Elevated white blood cell count: Status: Acute (12) Pneumonia: Status: Acute (13) HTN (hypertension): Status: Chronic (14) Tobacco dependence syndrome: Status: Chronic (15) Edema: Status: Chronic Assessment and Plan Assessment and Plan for All Diagnoses:: Plan: 1. The patient was admitted to the hospital and found to have acute on chronic HFrEF. Her BNP is greater than 30,000. Bedside echocardiogram shows her EF is down to 20% from around 40% at the beginning of the year. Milrinone was stopped yesterday. She remains on IV Lasix and oral spironolactone. She continues to diurese. Will stop IV Lasix and start her on Lasix 80 mg p.o. twice daily in addition to oral spironolactone. 2. Echocardiogram shows ejection fraction is 30 to 35%. She had is increased risk for sudden cardiac due to her severe LV dysfunction. She will need a LifeVest in place prior to discharge home. Will get LifeVest ordered. 3. Full echocardiogram showed elevated transaortic gradients with otherwise normal AV opening. Further evaluation with NICHOLAS is suggested to rule out subaortic membrane which can be done as an outpatient. 4. The patient's white blood cell count remains elevated. She is getting IV antibiotics. She does have a pneumonia. Will defer to the hospitalist and pulmonology. 5. The patient does have an elevated troponin consistent with a non-STEMI. She also has an abnormal Myoview stress test from March 2024 showing reversible ischemia. Very concerning for ischemic cardiomyopathy. Will plan to proceed with left cardiac catheterization today to evaluate for coronary artery disease. 6. The patient has been educated the risk and benefits of proceeding with left cardiac catheterization. The patient verbalizes understanding and is agreeable in proceeding with the procedure. 7. The patient will be n.p.o. in preparation for left cardiac catheterization 8. Continue aspirin 81 mg daily and Lovenox for her acute coronary syndrome. 9. The patient does have elevated liver enzymes which is most likely hepatic congestion from her acute on chronic HFrEF. Will continue to follow. 10. Her blood pressure is elevated. 11. Will hold off on beta-jake at this time to avoid cardiogenic shock in this patient with known LV dysfunction. If she remains stable tomorrow we will consider initiating a beta-jake tomorrow. 12. Start Entresto 49/51 mg p.o. twice daily for HFrEF and hypertension. 13. Consider Jardiance 10 mg daily when she is euvolemic. 14. Further recommendations will be made pending the patient's response to treatment and results of left cardiac catheterization. Thank you for the opportunity to help participate in the care of this patient. All recommendations and orders are per Dr. Fisher.
[2024-09-08] MEDS: FUROSEMIDE 80 MG TABLET PO (15:24)
[2024-09-08] MEDS: SACUBITRIL/VALSARTAN 24-26MG TABLET 2 EACH PO ×2 (15:24→22:05)
--- NOTE | 2024-09-08 16:17 | P.PN_ITS ---
Subjective *Date: 09/08/24 *Time: 12:17 Interval history: seen at bedside, no complains, denied Chest pain, SOB, has no questions Exam Data for Last 24 hours Vital signs and Labs for Last 24 Hours: Temp Pulse Resp BP Pulse Ox O2 Del Method O2 Flow Rate 98.5 F 74 17 127/74 98 Room Air 4 09/08/24 15:51 09/08/24 15:51 09/08/24 15:51 09/08/24 15:51 09/08/24 15:51 09/08/24 15:51 09/08/24 13:05 FiO2 35 09/06/24 12:25 Laboratory Results - last 24 hr 09/06/24 19:54: POC Glucose 193 H 09/07/24 05:53: POC Glucose 158 H 09/07/24 16:43: POC Glucose 150 H 09/07/24 20:38: POC Glucose 131 H 09/08/24 06:19: WBC 11.0 H D, RBC 4.93, Hgb 9.8 L, Hct 34.8 L, MCV 70.6 L, MCH 19.9 L, MCHC 28.2 L, RDW 18.8 H, Plt Count 525 H, MPV 10.6 H, Neut % (Auto) 72.2, Lymph % (Auto) 18.3, [place] % (Auto) 7.9, Eos % (Auto) 0.8, Baso % (Auto) 0.4, Neut # (Auto) 8.0 H, Lymph # (Auto) 2.0, [place] # (Auto) 0.9, Eos # (Auto) 0.1, Baso # (Auto) 0.0, Sodium 139, Potassium 4.1, Chloride 100, Carbon Dioxide 35 H, Anion Gap 8.1, BUN 18 H, Creatinine 0.80, Estimated Creat Clear 92, Estimated GFR 79, Est GFR ( Amer) 95 D, Glucose 92, Calcium 8.6, C- Reactive Protein 65.3 H, Procalcitonin 2.04 H 09/08/24 06:32: POC Glucose 98 09/08/24 11:13: POC Glucose 100 I & O for Last 24 hours: Intake & Output 09/05/24 09/06/24 09/07/24 09/08/24 23:59 23:59 23:59 23:59 Intake Total 2340.261 / 2890.261 1960 / 2240 400 / 400 Output Total 7300 / 7300 3600 / 3600 700 / 700 Balance -4959.739 / -4409.739 -1640 / -1360 -300 / -300 Weight 172.365 kg 178.2 kg 175.9 kg 166.423 kg Microbiology Reports for the Last 24 Hours: Microbiology 09/06/24 00:45 Anus CRE Surveillance Culture - Final Negative 09/07/24 15:16 Sputum - Expectorated Sputum Gram Stain - Final 09/05/24 21:20 Blood Blood Culture - Preliminary NO GROWTH AFTER 48 HOURS 09/06/24 16:25 Blood Blood Culture - Preliminary NO GROWTH AFTER 24 HOURS 09/06/24 16:30 Blood Blood Culture - Preliminary NO GROWTH AFTER 24 HOURS Constitutional Constitutional: no acute distress *Routine HEENT Exam Head: Present normocephalic Eye: Present EOMI and PERRL ENT: Present mucous membranes moist *Routine Neck Exam Neck: Present supple; Absent lymphadenopathy *Routine Respiratory Exam Respiratory: Present CTA bilaterally *Routine Cardiovascular Exam Cardiovascular: Present RRR *Routine Abdominal Exam Abdominal: Present soft and normoactive bowel sounds; Absent tenderness *Routine Extremities Exam Extremities: Absent cyanosis, clubbing or edema *Routine Skin Exam Skin: Present warm; Absent rash *Routine Neurological Exam Neurological: Present alert and oriented X3 Assessment and Plan *Assessment and plan (1) Acute on chronic HFrEF (heart failure with reduced ejection fraction): Status: Acute Category: Medical Code(s): I50.23 - Acute on chronic systolic (congestive) heart failure (2) Cardiomyopathy: Status: Acute Qualifiers: Cardiomyopathy type: dilated Qualified Code(s): I42.0 - Dilated cardiomyopathy Category: Medical Code(s): I42.9 - Cardiomyopathy, unspecified (3) Pulmonary edema: Status: Acute Qualifiers: Chronicity: acute Qualified Code(s): J81.0 - Acute pulmonary edema Category: Medical Code(s): J81.1 - Chronic pulmonary edema (4) Non-STEMI (non-ST elevated myocardial infarction): Status: Acute Category: Medical Code(s): I21.4 - Non-ST elevation (NSTEMI) myocardial infarction (5) Elevated troponin: Status: Acute Category: Medical Code(s): R79.89 - Other specified abnormal findings of blood chemistry (6) Acute hypoxic respiratory failure: Status: Acute Category: Medical Code(s): J96.01 - Acute respiratory failure with hypoxia (7) Respiratory failure with hypoxia: Status: Acute Qualifiers: Chronicity: acute on chronic Qualified Code(s): J96.21 - Acute and chronic respiratory failure with hypoxia Category: Medical Code(s): J96.91 - Respiratory failure, unspecified with hypoxia (8) HTN (hypertension): Status: Chronic Qualifiers: Hypertension type: essential hypertension Qualified Code(s): I10 - Essential (primary) hypertension Category: Medical Code(s): I10 - Essential (primary) hypertension (9) Edema: Status: Chronic Qualifiers: Edema type: unspecified Qualified Code(s): R60.9 - Edema, unspecified Category: Medical Code(s): R60.9 - Edema, unspecified (10) Tobacco dependence syndrome: Status: Chronic Category: Medical Code(s): F17.200 - Nicotine dependence, unspecified, uncomplicated (11) Obesity: Status: Acute Qualifiers: Obesity type: unspecified obesity type Obesity classification: adult class 3 (BMI >= 40) Qualified Code(s): E66.813 - Obesity, class 3; Z68.41 - Body mass index [BMI] 40.0-44.9, adult Category: Medical Code(s): E66.9 - Obesity, unspecified (12) SOB (shortness of breath): Status: Acute Category: Medical Code(s): R06.02 - Shortness of breath (13) Elevated white blood cell count: Status: Acute Qualifiers: Leukocytosis type: unspecified Qualified Code(s): D72.829 - Elevated white blood cell count, unspecified Category: Medical Code(s): D72.829 - Elevated white blood cell count, unspecified (14) Elevated liver enzymes: Status: Acute Category: Medical Code(s): R74.8 - Abnormal levels of other serum enzymes (15) Sepsis: Status: Acute Category: Medical Code(s): A41.9 - Sepsis, unspecified organism (16) Pulmonary embolism: Status: Acute Category: Medical Code(s): I26.99 - Other pulmonary embolism without acute cor pulmonale (17) Iron deficiency anemia: Status: Acute Category: Medical Code(s): D50.9 - Iron deficiency anemia, unspecified (18) Diabetes mellitus: Status: Acute Category: Medical Code(s): E11.9 - Type 2 diabetes mellitus without complications Plan Ms. Painting is a 44-year-old female who presented to the emergency department yesterday with complaints of worsening shortness of breath and cough. #Acute on chronic HFrEF exacerbation #Pulmonary edema Pulmonary embolism #Shortness of breath #Respiratory failure with hypoxia #Edema Type II NSTEMI secondary to CHF exacerbation Plan for Cardiac cath today at 1pm - BNP greater than 30,000 on admission. - continue supplemental oxygen as needed for goal sats greater than 90%. - anticoagulation for PE - Continue diuresis - Full echo showed EF of 50% but on milrinone at the time. Repeat this morning shows EF 30 to 35% #Fever #Sepsis #Leukocytosis Transaminitis - Pulmonary blood cultures show anaerobic gram-positive cocci, Streptococcus pyogenes, aerobic gram-positive cocci. Will continue to monitor for sensitivity. ?Patient is being empirically treated with Zosyn 3.375 g every 6 hours, azithromycin 500 mg every 24 hours. - Unclear source of infection. Suspect possibly cellulitis of bilateral lower extremities given wounds on shins. patient has history of lymphedema - Repeat blood cultures obtained 09/06 still pending, negative at this time. #Pulmonary embolism ? Patient had CTA of chest in the ED, found to have PE. Patient started on therapeutic Lovenox 180 mg every 12 hours. switch to PO OAC at DC #Tobacco use disorder ? Patient states that she has not smoked 3 days prior to coming to the hospital. Nicotine patches ordered as needed. #Obesity ? Complicates all aspects of care. ? Patient is morbidly obese with a BMI of 58. #Diabetes mellitus, type II ? Patient no known history of diabetes, A1c 7.3%. ? ACHS fingersticks, sliding scale insulin #Iron deficient anemia ? Patient found to be anemic on admission, she states this is a chronic issue for her she is prescribed iron 325 mg daily. ? Threshold for transfusion hemoglobin less than 7.0. ? Iron studies obtained, iron saturation 5.89, iron 22, folate 11.1. - s/po venofer Full code DVT PPX - pn loveneox corinna tamez 1-2 days
[2024-09-08 16:59] LABS: POC Glucose,Bedside 99 (70-110)
--- NOTE | 2024-09-08 17:35 | PC.NURSE ---
b/p elevated, notified dora and treated per apr, last b/p 152/88. cath site to rt radial. around 1340 dinh(peer support) came out and stated the pts wrist was bleeding around the radial band. removed band and applied pressure for 20 mins, 4x4 and tegaderm applied to wrist. some blood on the 4x4, outlined it with a marker to identify if it spreads. educated pt and her SO on what to do and not to do with the pts wrist and if bleeding occurs to call out for help. x1 assist with transfers. cb and personal items within reach
[2024-09-08] MEDS: PANTOPRAZOLE 40MG TABLET 40 MG PO (22:05)
[2024-09-08] MEDS: MELATONIN 5MG TABLET 5 MG PO (22:05)
[2024-09-08 22:21] LABS: POC Glucose,Bedside 91 (70-110)
[2024-09-09] VITALS: BP 170/80; PULSE 81; PULSE 88; RESP 18; TEMP 36.6; O2SAT 93
[2024-09-09 00:30] VITALS: O2SAT 70
[2024-09-09 04:00] VITALS: BP 138/79; PULSE 77; PULSE 83; RESP 18; TEMP 36.7; O2SAT 98; BMI 53.7
[2024-09-09] MEDS: PIPERACILLIN/TAZO 3.375 GM in 0.9 % SODIUM CHLORIDE 50 ML IV ×2 (05:33→11:31)
[2024-09-09 06:07] LABS: Hematocrit 36.8 % (37.0-47.0); Hemoglobin 10.2 g/dL (12.2-16.2); Immature Granulocytes % 0.8 %; Mean Corpuscular HGB Conc 27.7 g/dL (31.8-35.4); Mean Corpuscular Hemoglobin 19.2 pg (27.0-31.2); Mean Corpuscular Volume 69.3 fl (81-99); Nucleated Red Blood Cells % 0 %; Platelet Count 529 K/mm3 (142-424); Red Blood Count 5.31 M/mm3 (4.20-5.40); Red Cell Distribution Width-SD 43.1 fL; White Blood Count 9.0 K/mm3 (4.8-10.8)
[2024-09-09 06:11] LABS: Anion Gap 6.3 mEq/L (5-15); Blood Urea Nitrogen 12 mg/dl (7-17); Calcium 8.7 mg/dl (8.4-10.2); Carbon Dioxide 36 mmol/L (22.0-30.0); Chloride 99 mmol/L (98-107); Creatinine Clearance Estimated 92 mL/min (50-200); Creatinine,Serum 0.80 mg/dl (0.52-1.04); Estimated Glomerular Filt Rate 79 ml/min (>60); GFR (African American) 95 ML/MIN (>60); Glucose 99 mg/dl (74-100); Potassium 3.3 mmoL/L (3.5-5.1); Sodium 138 mmol/L (136-145)
[2024-09-09 06:18] VITALS: O2SAT 99
--- NOTE | 2024-09-09 06:23 | PC.NURSE ---
Pt A/Ox4. Pt has gotten up to BSC multiple times at beginning of shift to urinate. Pt has urge incontinence and was unable to measure all urine throughout shift. Purewick applied for accurate measurment. Total urine measured for shift is 3450ml. Pt has open blistering to BLE, dsg applied (non adherent pad and kerlex and tape). Pt o2 dropped to 70s while asleep so 2 L nc was applied, tolerating well with sat >90%. Family in room at this time. Call light within reach.
[2024-09-09 08:00] VITALS: BP 122/86; PULSE 86; RESP 18; TEMP 37; O2SAT 100
--- NOTE | 2024-09-09 08:24 | EXP.PHA.PN ---
Subjective *Date: 09/09/24 *Time: 08:24 Medical Exam Vital signs and Labs for Last 24 Hours: Vital Signs Temp Pulse Pulse Resp BP Pulse Ox O2 Del Method 09/09/24 06:33 Nasal Cannula 09/09/24 06:18 99 Nasal Cannula 09/09/24 05:00 Nasal Cannula 09/09/24 04:00 98.0 F 83 18 138/79 98 Nasal Cannula 09/09/24 04:00 77 09/09/24 02:51 Nasal Cannula 09/09/24 00:43 Nasal Cannula 09/09/24 00:30 70 L Room Air 09/09/24 00:00 88 09/09/24 00:00 97.9 F 81 18 170/80 H 93 L Room Air 09/08/24 22:35 Room Air 09/08/24 21:00 166/77 H 09/08/24 21:00 Room Air 09/08/24 20:00 83 09/08/24 20:00 98.3 F 89 20 157/102 H 98 Room Air 09/08/24 20:00 Room Air 09/08/24 18:56 Room Air 09/08/24 17:00 Room Air 09/08/24 16:05 97.7 F 85 19 140/92 H 96 Room Air 09/08/24 16:00 80 09/08/24 15:35 97.7 F 85 20 158/98 H 95 Room Air 09/08/24 15:05 97.8 F 82 20 151/100 H 95 Room Air 09/08/24 15:00 Room Air 09/08/24 14:35 98.0 F 76 18 146/90 H 100 Nasal Cannula 09/08/24 14:05 97.9 F 84 18 160/102 H 98 Nasal Cannula 09/08/24 13:50 97.9 F 84 19 170/99 H 98 Nasal Cannula 09/08/24 13:35 97.7 F 80 22 166/101 H 88 L Room Air 09/08/24 13:20 97.7 F 80 20 150/96 H 96 Room Air 09/08/24 13:05 81 18 141/100 H 99 Nasal Cannula 09/08/24 13:00 Room Air 09/08/24 13:00 76 18 138/92 H 99 Nasal Cannula 09/08/24 12:55 84 18 132/72 99 Nasal Cannula 09/08/24 12:50 81 18 142/72 H 99 Nasal Cannula 09/08/24 12:50 81 Nasal Cannula 09/08/24 11:00 Nasal Cannula 09/08/24 09:29 Nasal Cannula 09/08/24 09:00 Nasal Cannula O2 Flow Rate 09/09/24 06:33 2 09/09/24 06:18 2 09/09/24 05:00 2 09/09/24 04:00 2 09/09/24 04:00 09/09/24 02:51 2 09/09/24 00:43 2 09/09/24 00:30 09/09/24 00:00 09/09/24 00:00 09/08/24 22:35 09/08/24 21:00 09/08/24 21:00 09/08/24 20:00 09/08/24 20:00 09/08/24 20:00 09/08/24 18:56 09/08/24 17:00 09/08/24 16:05 09/08/24 16:00 09/08/24 15:35 09/08/24 15:05 09/08/24 15:00 09/08/24 14:35 2 09/08/24 14:05 2 09/08/24 13:50 2 09/08/24 13:35 09/08/24 13:20 09/08/24 13:05 4 09/08/24 13:00 09/08/24 13:00 4 09/08/24 12:55 4 09/08/24 12:50 4 09/08/24 12:50 09/08/24 11:00 2 09/08/24 09:29 2 09/08/24 09:00 2 Intake and Output 09/08/24 09/09/24 09/09/24 23:59 07:59 15:59 Intake Total 290 / 690 Output Total 7800 / 8500 400 / 400 Balance -7510 / -7810 -400 / -400 Intake: Intake, Oral Amount 240 / 540 Intake, Total IV Amount 50 / 150 Piperacillin/Tazo 3.375 gm In 0 50 / 150 .9 % Sodium Chloride 50 ml @ 100 mls/hr IV Q6H [facility] Rx#: [id number] Output: Output, Urine Amount 7800 / 8500 400 / 400 Other: Number of Voids 1 Number of Unmeasured Voids 0 0 Number of Bowel Movements 1 Weight 164.518 kg Patient Weight 09/09/24 23:59 Weight 164.518 kg Laboratory Results - last 24 hr 09/08/24 06:19: WBC 11.0 H D, RBC 4.93, Hgb 9.8 L, Hct 34.8 L, MCV 70.6 L, MCH 19.9 L, MCHC 28.2 L, RDW 18.8 H, Plt Count 525 H, MPV 10.6 H, Neut % (Auto) 72.2, Lymph % (Auto) 18.3, [place] % (Auto) 7.9, Eos % (Auto) 0.8, Baso % (Auto) 0.4, Neut # (Auto) 8.0 H, Lymph # (Auto) 2.0, [place] # (Auto) 0.9, Eos # (Auto) 0.1, Baso # (Auto) 0.0, Sodium 139, Potassium 4.1, Chloride 100, Carbon Dioxide 35 H, Anion Gap 8.1, BUN 18 H, Creatinine 0.80, Estimated Creat Clear 92, Estimated GFR 79, Est GFR ( Amer) 95 D, Glucose 92, Calcium 8.6 09/08/24 11:13: POC Glucose 100 09/08/24 16:53: POC Glucose 99 09/08/24 22:06: POC Glucose 91 09/09/24 05:14: WBC 9.0, RBC 5.31, Hgb 10.2 L, Hct 36.8 L, MCV 69.3 L, MCH 19.2 L, MCHC 27.7 L, RDW 18.1 H, Plt Count 529 H, MPV 10.0, Neut % (Auto) 64.9, Lymph % (Auto) 24.6, [place] % (Auto) 7.9, Eos % (Auto) 1.2, Baso % (Auto) 0.6, Neut # (Auto) 5.9, Lymph # (Auto) 2.2, [place] # (Auto) 0.7, Eos # (Auto) 0.1, Baso # (Auto) 0.1, Sodium 138, Potassium 3.3 L, Chloride 99, Carbon Dioxide 36 H, Anion Gap 6.3, BUN 12 D, Creatinine 0.80, Estimated Creat Clear 92, Estimated GFR 79, Est GFR ( Amer) 95, Glucose 99, Calcium 8.7 I & O for Labs for Last 24 Hours: Intake & Output 09/06/24 09/07/24 09/08/24 09/09/24 23:59 23:59 23:59 23:59 Intake Total 2340.261 / 2890.261 1960 / 2240 690 / 690 Output Total 7300 / 7300 3600 / 3600 8100 / 8500 400 / 400 Balance -4959.739 / -4409.739 -1640 / -1360 -7410 / -7810 -400 / -400 Weight 178.2 kg 175.9 kg 166.423 kg 164.518 kg Microbiology Reports for the Last 24 Hours: Microbiology 09/06/24 16:30 Blood Blood Culture - Preliminary NO GROWTH AFTER 48 HOURS 09/06/24 16:25 Blood Blood Culture - Preliminary NO GROWTH AFTER 48 HOURS 09/06/24 00:45 Anus CRE Surveillance Culture - Final Negative The patient's infection will respond to the chosen ABx?: Yes (SPUTUM CX PENDING, BLOOD CX NO GROWTH AT 48 HR, AFEBRILE OVER 24 HR.) Could a more targeted ABx be ordered?: No How long ABx needed (days)?: 7 (PNEUMONIA)
[2024-09-09] MEDS: AZITHROMYCIN 250MG TABLET 500 MG PO (09:07)
[2024-09-09] MEDS: FUROSEMIDE 80 MG TABLET PO (09:07)
[2024-09-09] MEDS: ASPIRIN EC 81MG TABLET 81 MG PO (09:07)
[2024-09-09] MEDS: SACUBITRIL/VALSARTAN 24-26MG TABLET 2 EACH PO (09:07)
[2024-09-09] MEDS: SPIRONOLACTONE 25MG TABLET 25 MG PO (09:07)
--- NOTE | 2024-09-09 09:53 | EXP.PULM.PN ---
Subjective *Date: 09/09/24 *Time: 12:44 Interval history: No acute respiratory vents overnight. Patient denies any new respiratory complaints. Pulmonology Exam Inpatient Vital signs and Labs for Last 24 Hours: Temp Pulse Resp BP Pulse Ox O2 Del Method O2 Flow Rate 98.6 F 86 18 122/86 100 Nasal Cannula 2 09/09/24 08:00 09/09/24 08:00 09/09/24 08:00 09/09/24 08:00 09/09/24 08:00 09/09/24 08:00 09/09/24 08:00 FiO2 35 09/06/24 12:25 Laboratory Results - last 24 hr 09/08/24 06:19: WBC 11.0 H D, RBC 4.93, Hgb 9.8 L, Hct 34.8 L, MCV 70.6 L, MCH 19.9 L, MCHC 28.2 L, RDW 18.8 H, Plt Count 525 H, MPV 10.6 H, Neut % (Auto) 72.2, Lymph % (Auto) 18.3, [place] % (Auto) 7.9, Eos % (Auto) 0.8, Baso % (Auto) 0.4, Neut # (Auto) 8.0 H, Lymph # (Auto) 2.0, [place] # (Auto) 0.9, Eos # (Auto) 0.1, Baso # (Auto) 0.0, Sodium 139, Potassium 4.1, Chloride 100, Carbon Dioxide 35 H, Anion Gap 8.1, BUN 18 H, Creatinine 0.80, Estimated Creat Clear 92, Estimated GFR 79, Est GFR ( Amer) 95 D, Glucose 92, Calcium 8.6 09/08/24 11:13: POC Glucose 100 09/08/24 16:53: POC Glucose 99 09/08/24 22:06: POC Glucose 91 09/09/24 05:14: WBC 9.0, RBC 5.31, Hgb 10.2 L, Hct 36.8 L, MCV 69.3 L, MCH 19.2 L, MCHC 27.7 L, RDW 18.1 H, Plt Count 529 H, MPV 10.0, Neut % (Auto) 64.9, Lymph % (Auto) 24.6, [place] % (Auto) 7.9, Eos % (Auto) 1.2, Baso % (Auto) 0.6, Neut # (Auto) 5.9, Lymph # (Auto) 2.2, [place] # (Auto) 0.7, Eos # (Auto) 0.1, Baso # (Auto) 0.1, Sodium 138, Potassium 3.3 L, Chloride 99, Carbon Dioxide 36 H, Anion Gap 6.3, BUN 12 D, Creatinine 0.80, Estimated Creat Clear 92, Estimated GFR 79, Est GFR ( Amer) 95, Glucose 99, Calcium 8.7 Temp Pulse Resp BP Pulse Ox O2 Del Method O2 Flow Rate 98.0 F 90 27 H 106/56 L 94 L Vapotherm 30 09/06/24 08:00 09/06/24 08:00 09/06/24 07:00 09/06/24 08:00 09/06/24 08:00 09/06/24 08:00 09/06/24 08:00 FiO2 50 09/06/24 07:00 Laboratory Results - last 24 hr 09/05/24 21:18: VBG pH 7.41, VBG pCO2 33.6 L, VBG pO2 36.1, VBG HCO3 20.7 L, VBG Total CO2 21.8 L, VBG O2 Saturation 65.2, VBG Base Excess -3.9 L, VBG Lactic Acid 3.3 H 09/05/24 21:19: WBC 32.4 H*, RBC 5.52 H, Hgb 10.6 L, Hct 37.7, MCV 68.3 L, MCH 19.2 L, MCHC 28.1 L, RDW 18.5 H, Plt Count 562 H, MPV 10.6 H, Neut % (Auto) 92.5 H, Lymph % (Auto) 2.8 L, [place] % (Auto) 3.2, Eos % (Auto) 0.0 L, Baso % (Auto) 0.2, Neut # (Auto) 30.0 H, Lymph # (Auto) 0.9, [place] # (Auto) 1.1 H, Eos # (Auto) 0.0, Baso # (Auto) 0.1, Total Counted 100, Neutrophils % (Manual) 90 H, Lymphocytes % (Manual) 8 L, Monocytes % (Manual) 2, Platelet Estimate Normal, RBC Morphology Normal, Sodium 129 L, Potassium 4.4, Chloride 98, Carbon Dioxide 22, Anion Gap 13.4, BUN 15, Creatinine 0.90, Estimated Creat Clear 85, Estimated GFR 69, Est GFR ( Amer) 83, Glucose 158 H, Calcium 8.9, Total Bilirubin 2.4 H, AST 123 H, ALT 86 H, Alkaline Phosphatase 99, Troponin I 0.19 H, NT-Pro-B Natriuret Pep > 70009 H, Total Protein 7.8, Albumin 4.1, Globulin 3.7 H, Albumin/Globulin Ratio 1.1, HCG, Quant < 2 09/05/24 22:50: Chlamy pneumoniae PCR Not detected, Adenovirus (PCR) Not detected, B. pertussis DNA (PCR) Not detected, Coronavirus OC43 (PCR) Not detected, Coronavirus HKU1 (PCR) Not detected, Coronavirus 229E (PCR) Not detected, SARS-CoV-2 (PCR) Not detected, Coronavirus NL63 (PCR) Not detected, Human Metapneumovir PCR Not detected, Influenza A (H1) PCR Not detected, Influ A (H1N1/09) PCR Not detected, Influenza A (H3) PCR Not detected, Influenza Type A (PCR) Not detected, Influenza Type B (PCR) Not detected, M. pneumoniae (PCR) Not detected, Parainfluenza 1 (PCR) Not detected, Parainfluenza 2 (PCR) Not detected, Parainfluenza 3 (PCR) Not detected, Parainfluenza 4 (PCR) Not detected, RSV (PCR) Not detected, Entero/Rhino (PCR) Not detected 09/06/24 01:03: Troponin I 0.22 H 09/06/24 01:07: POC Glucose 138 H 09/06/24 03:38: Sodium 130 L, Potassium 3.4 L D, Chloride 98, Carbon Dioxide 25, Anion Gap 10.4, BUN 16, Creatinine 0.80, Estimated Creat Clear 92, Estimated GFR 79, Est GFR ( Amer) 95, Glucose 173 H, Lactate 2.1, Calcium 8.5, Magnesium 1.5 L, Troponin I 0.25 H 09/06/24 05:37: WBC 21.6 H* D, RBC 4.80, Hgb 9.5 L D, Hct 32.6 L, MCV 67.9 L, MCH 19.8 L, MCHC 29.1 L, RDW 17.4, Plt Count 489 H, MPV 10.3, Neut % (Auto) 94.7 H, Lymph % (Auto) 3.1 L, [place] % (Auto) 0.9 L, Eos % (Auto) 0.0 L, Baso % (Auto) 0.2, Neut # (Auto) 20.5 H, Lymph # (Auto) 0.7, [place] # (Auto) 0.2, Eos # (Auto) 0.0, Baso # (Auto) 0.1, Total Counted 100, Neutrophils % (Manual) 97 H, Lymphocytes % (Manual) 2 L, Monocytes % (Manual) 1 L, Platelet Estimate Slight increase, Hypochromasia 2+, Microcytosis 1+, Sodium 134 L, Potassium 3.3 L, Chloride 101, Carbon Dioxide 26, Anion Gap 10.3, BUN 16, Creatinine 0.90, Estimated Creat Clear 82, Estimated GFR 69, Est GFR ( Amer) 83, Glucose 197 H, Lactate 1.9, Calcium 8.7, Magnesium 1.6, Total Bilirubin 1.9 H, AST 122 H, ALT 100 H, Alkaline Phosphatase 106, Total Protein 6.2 L, Albumin 3.3 L D, Globulin 2.9, Albumin/Globulin Ratio 1.1, Triglycerides 79, Cholesterol 59 L, LDL Cholesterol Direct < 30.0 L, VLDL Cholesterol 16, HDL Cholesterol 27 L, Cholesterol/HDL Ratio 2.2, Vitamin B12 907, Folate 11.10 09/06/24 05:46: Specimen Source Right radial, O2 % 30l 70%, ABG pH 7.48 H, ABG pCO2 32.4 L, ABG pO2 128.5 H, ABG HCO3 23.5, ABG Total CO2 24.5, ABG O2 Saturation 99, ABG Base Excess -0.1, Dannie Test Acceptable 09/06/24 06:08: POC Glucose 208 H I & O for Labs for Last 24 Hours: Intake & Output 09/06/24 09/07/24 09/08/24 09/09/24 23:59 23:59 23:59 23:59 Intake Total 2340.261 / 2890.261 1960 / 2240 690 / 690 Output Total 7300 / 7300 3600 / 3600 8100 / 8500 900 / 900 Balance -4959.739 / -4409.739 -1640 / -1360 -7410 / -7810 -900 / -900 Weight 392 lb 13.82 oz 387 lb 12.69 oz 366 lb 14.4 oz 362 lb 11.2 oz Intake & Output 09/03/24 09/04/24 09/05/24 09/06/24 23:59 23:59 23:59 23:59 Intake Total 62.261 / 62.261 Output Total 5800 / 5800 Balance -5737.739 / -5737.739 Weight 380 lb 392 lb 13.82 oz Microbiology Reports for the Last 24 Hours: Microbiology 09/06/24 16:30 Blood Blood Culture - Preliminary NO GROWTH AFTER 48 HOURS 09/06/24 16:25 Blood Blood Culture - Preliminary NO GROWTH AFTER 48 HOURS 09/06/24 00:45 Anus CRE Surveillance Culture - Final Negative Constitutional: Present severe distress and morbidly obese Head: Present normocephalic and atraumatic ENT: Present normal exam, normal oropharynx and mucous membranes moist Neck: Present normal inspection and full ROM Respiratory: Present crackles, normal respiratory effort and able to speak in complete sentences; Absent prolonged expiratory phase, respiratory distress or diminished air movement Cardiac: Present S1/S2, Tachycardia and radial pulses present GI: Present soft and distention; Absent tenderness or guarding Rectal (female): Present deferred (female): Present deferred Skin: Present intact; Absent cyanosis or jaundice Neuro: Present alert, awake and oriented x 3 Extremities: Present normal inspection; Absent clubbing or cyanosis Psychiatric: Present normal affect and cooperative Assessment and Plan *Assessment and plan (1) Pulmonary edema: Status: Acute Qualifiers: Chronicity: acute Qualified Code(s): J81.0 - Acute pulmonary edema Category: Medical Code(s): J81.1 - Chronic pulmonary edema (2) Acute hypoxic respiratory failure: Status: Acute Category: Medical Code(s): J96.01 - Acute respiratory failure with hypoxia (3) Pulmonary embolism: Status: Acute Category: Medical Code(s): I26.99 - Other pulmonary embolism without acute cor pulmonale Plan Ms. Painting is a 44-year-old female with reported history of tobacco abuse hypertension asthma presented to the ER with worsening respiratory distress cough found to be needing new oxygen requirements and pulmonary was called for further evaluation and management. Current smoker greater than [id number] smoking history not using any oxygen supplementation at baseline. Low-grade fevers at 101.8. Neutrophilic predominant leukocytosis upon admission. Comprehensive respiratory viral PCR panel negative Blood gas upon admission did not show any hypoxic/hypercarbic respiratory failure, arterial, pH of 7.48 and pCO2 32.4 and a PO2 128.5 CT chest upon admission bilateral groundglass opacity and septal thickening concerning for volume overload/pulmonary edema. Dilated right ventricle. Concern for right lower lobe segmental/subsegmental pulmonary embolism. Currently on milrinone and Zosyn. Interval update: No acute respiratory vents overnight. Receiving antibiotics for strep pyogenes bacteremia. Continue to remain on room air during the daytime. Follow-up for possible CATHRYN as an outpatient basis for her continued oxygen requirements at night Plan: Incentive spirometry Continue oxygen supplementation as needed to maintain O2 saturation of 90% and above. Continue to remain on room air during the daytime. Needing oxygen supplementation at night while asleep Continue full dose anticoagulation for right lower lobe subsegmental pulmonary embolism x 3 months for likely provoked PE. Advair 500 inhaler, can be discharged home on home Breo 100 inhaler. Antibiotic management as per primary team. Volume optimization as per primary team and cardiology. # Thank you for involving pulmonary in this patient care. Will follow the patient in pulmonary clinic 3 to 4 weeks postdischarge. Recommend continuing nocturnal oxygen supplementation at 2 L upon discharge. Evaluate for other possible etiologies of nocturnal hypoxia including polysomnography testing as an outpatient basis.
[2024-09-09 11:55] VITALS: BP 125/77; PULSE 86; RESP 18; TEMP 36.4
--- NOTE | 2024-09-09 13:32 | P.PN_ITS ---
Subjective Subjective Date: 09/09/24 Time: 10:30 Principal diagnosis: acute on chronic HFrEF, pneumonia Interval history: This is a 44-year-old female who presented to the emergency department with complaints of shortness of breath. She was found to have an elevated troponin and acute on chronic HFrEF as well as an elevated white blood cell count. The patient was treated with IV Lasix and milrinone initially. Milrinone was stopped and now on oral Lasix. LHC yesterday showed normal coronary arteries. She states that her shortness of breath and edema have significantly improved since being in the hospital. She denies any chest pain or pressure. She denies any fever, chills, nausea, vomiting or diarrhea. She has remained afebrile. Exam Data for Last 24 hours Vital signs and Labs for Last 24 Hours: Temp Pulse Resp BP Pulse Ox O2 Del Method O2 Flow Rate 97.6 F 86 18 125/77 100 Room Air 2 09/09/24 11:55 09/09/24 11:55 09/09/24 11:55 09/09/24 11:55 09/09/24 08:00 09/09/24 09:00 09/09/24 08:00 FiO2 35 09/06/24 12:25 Laboratory Results - last 24 hr 09/08/24 16:53: POC Glucose 99 09/08/24 22:06: POC Glucose 91 09/09/24 05:14: WBC 9.0, RBC 5.31, Hgb 10.2 L, Hct 36.8 L, MCV 69.3 L, MCH 19.2 L, MCHC 27.7 L, RDW 18.1 H, Plt Count 529 H, MPV 10.0, Neut % (Auto) 64.9, Lymph % (Auto) 24.6, [place] % (Auto) 7.9, Eos % (Auto) 1.2, Baso % (Auto) 0.6, Neut # (Auto) 5.9, Lymph # (Auto) 2.2, [place] # (Auto) 0.7, Eos # (Auto) 0.1, Baso # (Auto) 0.1, Sodium 138, Potassium 3.3 L, Chloride 99, Carbon Dioxide 36 H, Anion Gap 6.3, BUN 12 D, Creatinine 0.80, Estimated Creat Clear 92, Estimated GFR 79, Est GFR ( Amer) 95, Glucose 99, Calcium 8.7 I & O for Last 24 hours: Intake & Output 09/06/24 09/07/24 09/08/24 09/09/24 23:59 23:59 23:59 23:59 Intake Total 2340.261 / 2890.261 1960 / 2240 690 / 690 Output Total 7300 / 7300 3600 / 3600 8100 / 8500 1500 / 1500 Balance -4959.739 / -4409.739 -1640 / -1360 -7410 / -7810 -1500 / -1500 Weight 392 lb 13.82 oz 387 lb 12.69 oz 366 lb 14.4 oz 362 lb 11.2 oz Microbiology Reports for the Last 24 Hours: Microbiology 09/06/24 16:30 Blood Blood Culture - Preliminary NO GROWTH AFTER 48 HOURS 09/06/24 16:25 Blood Blood Culture - Preliminary NO GROWTH AFTER 48 HOURS Constitutional Constitutional: no acute distress and morbidly obese *Routine HEENT Exam Head: Present normocephalic and atraumatic ENT: Present mucous membranes moist *Routine Neck Exam Neck: Present supple, full ROM and normal carotid upstroke; Absent JVD, carotid bruit or lymphadenopathy *Routine Respiratory Exam Respiratory: Present CTA bilaterally, normal respiratory effort, able to speak in complete sentences and symmetric chest movement *Routine Cardiovascular Exam Cardiovascular: Present RRR, Normal S1 and Normal S2; Absent murmur or gallop *Routine Abdominal Exam Abdominal: Present soft and normoactive bowel sounds; Absent tenderness, distended or organomegaly *Routine Extremities Exam Extremities: Present full ROM, pulses intact and normal capillary refill; Absent cyanosis, clubbing or edema *Routine Skin Exam Skin: Present intact and warm; Absent erythema *Routine Neurological Exam Neurological: Present alert, oriented X3 and CN II-XII intact; Absent sensory deficit or motor deficit Routine Psychiatric Exam Psychiatric: Present normal affect Progress Note: A&P Assessment and plan (1) Acute on chronic HFrEF (heart failure with reduced ejection fraction): Status: Acute (2) Pulmonary edema: Status: Acute (3) Acute hypoxic respiratory failure: Status: Acute (4) Pulmonary embolism: Status: Acute (5) Elevated troponin: Status: Acute (6) Non-STEMI (non-ST elevated myocardial infarction): Status: Acute (7) Sepsis: Status: Acute (8) Abnormal cardiovascular stress test: Status: Acute (9) Diabetes mellitus: Status: Acute (10) Elevated liver enzymes: Status: Acute (11) Elevated white blood cell count: Status: Acute (12) Pneumonia: Status: Acute (13) HTN (hypertension): Status: Chronic (14) Tobacco dependence syndrome: Status: Chronic (15) Edema: Status: Chronic Assessment and Plan Assessment and Plan for All Diagnoses:: Plan: 1. The patient was admitted to the hospital and found to have acute on chronic HFrEF. Her BNP is greater than 30,000. Interval reduction in EF. Diuresed with Milrinon and Lasix. Milrinone stopped and now on oral Lasix. Continue Lasix for diuersis. 2. Echocardiogram shows ejection fraction is 30 to 35% off Milrinone. She had is increased risk for sudden cardiac due to her severe LV dysfunction. She will need a LifeVest in place prior to discharge home, will be placed today. 3. Full echocardiogram was completed on milrinone and showed EF 50% as well aselevated transaortic gradients with otherwise normal AV opening. Further evaluation with NICHOLAS is suggested to rule out subaortic membrane which can be done as an outpatient. 4. The patient's white blood cell count was elevated on admission. She is getting IV antibiotics. She does have a pneumonia. Will defer to the hospitalist and pulmonology. 5. The patient does have an elevated troponin consistent with a non-STEMI. Had LHC yesterday with normal coronary arteries. 6. Pt is hypokalemic today. Increase Aldactone to 50 mg daily. 7. Her blood pressure is well controlled. 8. Start Toprol 25 mg daily for HFrEF. 9. Continue Entresto 49/51 mg p.o. twice daily for HFrEF and hypertension. 10. Start Jardiance 10 mg daily for HFrEF. 11. No further recommendations at this time from a cardiac standpoint, she can be discharged home today from a cardiac standpoint with a follow up in cardiology clinic next week. The patient will need to be discharged home following cardiac medications: Aspirin 81 mg daily Jardiance 10 mg daily Lasix 80 mg twice daily metoprolol XL 25 mg daily Protonix 40 mg daily Entresto 49/51 mg twice daily Spironolactone 50 mg daily Thank you for the opportunity to help participate in the care of this patient. All recommendations and orders are per Dr. Fisher.
[2024-09-09] MEDS: SPIRONOLACTONE 25MG TABLET 50 MG PO (14:17)
[2024-09-09] MEDS: EMPAGLIFLOZIN 10MG TABLET 10 MG PO (14:17)
--- NOTE | 2024-09-10 10:10 | SW/DCPLANNER ---
Spoke with patient on the phone. Patient stated that she is doing good. Patient stated that she is aware of her upcoming appointments. Patient stated that she was able to get her new medicine picked up from [facility]. Patient stated that she needs supplemental oxygen at night time and asking if we knew anything about it. Looked into patient's chart and it stated that she needs it and we will get the order from the DR and order it from [facility]. Patient stated that she has no other concerns or questions at this time. Ani Marshall
[2024-09-10 10:34] LABS: POC Glucose,Bedside 96 (70-110)
--- NOTE | 2024-09-10 10:43 | PC.NURSE ---
Blood culture results forwarded to hospitalist.
[2024-09-10 10:56] LABS: POC Glucose,Bedside 129 (70-110)
--- NOTE | 2024-09-10 16:09 | EXP.EVENT.NO ---
patient will require 2L nasal cannula at night related to being 70% on room air while sleeping
--- NOTE | 2024-09-10 19:28 | P.DS_ITS ---
General Admission date:: 09/05/24 Discharge date: 09/09/24 HPI HPI HPI: Morbidly obese female with a very large left ventricle. That has been a smoker since about age 18, comes in in respiratory distress.. Last cigarette approximately 3 days ago. . Patient is a 44-year-old female with past medical history of hypertension, asthma, chronic smoker, methamphetamine use who presents emergency department for evaluation of cough and shortness of breath. Onset was acute, over the last 3 days. She smoked a pack a day until 3 days ago when she developed a cough and shortness of breath generally feeling unwell. Upon EMS arrival she was saturating 86% which went up to the mid 90s on nonrebreather. Patient was given an albuterol treatment prior to arrival. She denies chest pain. No other interventions prehospital. No other acute complaints at this time. I have spoken with the ER doctor and agree that the patient needs to be admitted to the intensive care unit, he has spoken with Dr. Brown and cardiology and pulmonary consult will be done. Patient will be started on milrinone has been given 80 mg of Lasix. Also noting slightly elevated troponin. I have spoken to the patient and her significant other, that she is very ill at this time we are going to do everything to bring fluid off of her clear her lungs treat any infection. That she will be in the ICU tonight. We have talked about CODE STATUS and the patient wants to remain a full code. Teaching done on need for lifestyle changes that in my opinion she would get better this time but be back within a month.. Hospital Course Hospital Course Hospital Course: Ms. Painting is a 44-year-old female who presented to the emergency department yesterday with complaints of worsening shortness of breath and cough. #Acute on chronic HFrEF exacerbation #Pulmonary edema Pulmonary embolism #Shortness of breath #Respiratory failure with hypoxia #Edema Type II NSTEMI secondary to CHF exacerbation Echocardiogram shows ejection fraction is 30 to 35% off Milrinone. She had is increased risk for sudden cardiac due to her severe LV dysfunction. She will need a LifeVest in place prior to discharge home, will be placed today. 3. Full echocardiogram was completed on milrinone and showed EF 50% as well aselevated transaortic gradients with otherwise normal AV opening. Further evaluation with NICHOLAS is suggested to rule out subaortic membrane which can be done as an outpatient. The patient will need to be discharged home following cardiac medications: Aspirin 81 mg daily Jardiance 10 mg daily Lasix 80 mg twice daily metoprolol XL 25 mg daily Protonix 40 mg daily Entresto 49/51 mg twice daily Spironolactone 50 mg daily #Fever #Sepsis #Leukocytosis Transaminitis improved, dc on oral Abx Exam Data for Last 24 hours Vital signs and Labs for Last 24 Hours: Temp Pulse Resp BP Pulse Ox O2 Del Method O2 Flow Rate 97.6 F 86 18 125/77 100 Room Air 2 09/09/24 11:55 09/09/24 11:55 09/09/24 11:55 09/09/24 11:55 09/09/24 08:00 09/09/24 13:00 09/09/24 08:00 FiO2 35 09/06/24 12:25 Laboratory Results - last 24 hr 09/09/24 05:35: POC Glucose 96 09/09/24 11:30: POC Glucose 129 H I & O for Last 24 hours: Intake & Output 09/07/24 09/08/24 09/09/24 09/10/24 23:59 23:59 23:59 23:59 Intake Total 1960 / 2240 690 / 690 Output Total 3600 / 3600 8100 / 8500 1500 / 1500 Balance -1640 / -1360 -7410 / -7810 -1500 / -1500 Weight 175.9 kg 166.423 kg 164.518 kg Microbiology Reports for the Last 24 Hours: Microbiology 09/06/24 16:30 Blood Blood Culture - Preliminary NO GROWTH AFTER 4 DAYS 09/06/24 16:25 Blood Blood Culture - Preliminary NO GROWTH AFTER 4 DAYS 09/07/24 15:16 Sputum - Expectorated Sputum Gram Stain - Final 09/07/24 15:16 Sputum - Expectorated Sputum Sputum Culture - Final 09/06/24 01:11 Leg,Right Gram Stain - Final 09/06/24 01:11 Leg,Right Wound Culture - Preliminary 09/05/24 21:10 Blood Blood Culture - Final Strep pyogenes (grp a) 09/05/24 21:20 Blood Blood Culture - Preliminary NO GROWTH AFTER 4 DAYS Results Data Completed and Pending Labs on day of discharge: Labs from last 24 hours 09/09/24 09/09/24 11:30 05:35 POC Glucose 129 H 96 Preliminary micro results at discharge 09/06/24 16:30 Blood Culture - Preliminary Blood NO GROWTH AFTER 4 DAYS 09/06/24 16:25 Blood Culture - Preliminary Blood NO GROWTH AFTER 4 DAYS 09/06/24 01:11 Wound Culture - Preliminary Leg,Right 09/05/24 21:20 Blood Culture - Preliminary Blood NO GROWTH AFTER 4 DAYS DS: Diagnosis Discharge Diagnosis (1) Acute on chronic HFrEF (heart failure with reduced ejection fraction): Status: Acute Code(s): I50.23 - Acute on chronic systolic (congestive) heart failure (2) Pulmonary edema: Status: Acute Code(s): J81.1 - Chronic pulmonary edema Qualifiers: Chronicity: acute Qualified Code(s): J81.0 - Acute pulmonary edema (3) Acute hypoxic respiratory failure: Status: Acute Code(s): J96.01 - Acute respiratory failure with hypoxia (4) Pulmonary embolism: Status: Acute Code(s): I26.99 - Other pulmonary embolism without acute cor pulmonale (5) Elevated troponin: Status: Acute Code(s): R79.89 - Other specified abnormal findings of blood chemistry (6) Non-STEMI (non-ST elevated myocardial infarction): Status: Acute Code(s): I21.4 - Non-ST elevation (NSTEMI) myocardial infarction (7) Sepsis: Status: Acute Code(s): A41.9 - Sepsis, unspecified organism (8) Abnormal cardiovascular stress test: Status: Acute Code(s): R94.39 - Abnormal result of other cardiovascular function study (9) Diabetes mellitus: Status: Acute Code(s): E11.9 - Type 2 diabetes mellitus without complications (10) Elevated liver enzymes: Status: Acute Code(s): R74.8 - Abnormal levels of other serum enzymes (11) Elevated white blood cell count: Status: Acute Code(s): D72.829 - Elevated white blood cell count, unspecified Qualifiers: Leukocytosis type: unspecified Qualified Code(s): D72.829 - Elevated white blood cell count, unspecified (12) Pneumonia: Status: Acute Code(s): J18.9 - Pneumonia, unspecified organism Qualifiers: Laterality: unspecified laterality Lung location: unspecified part of lung Pneumonia type: due to unspecified organism Qualified Code(s): J18.9 - Pneumonia, unspecified organism (13) HTN (hypertension): Status: Chronic Code(s): I10 - Essential (primary) hypertension Qualifiers: Hypertension type: essential hypertension Qualified Code(s): I10 - Essential (primary) hypertension (14) Tobacco dependence syndrome: Status: Chronic Code(s): F17.200 - Nicotine dependence, unspecified, uncomplicated (15) Edema: Status: Chronic Code(s): R60.9 - Edema, unspecified Qualifiers: Edema type: unspecified Qualified Code(s): R60.9 - Edema, unspecified Meds Home Medications and Allergies Home Medications ?Medication ?Instructions ?Recorded ?Confirmed ?Type cholecalciferol (vitamin D3) 50 50 mcg PO DAILY #30 ca ps 01/06/24 09/16/24 Rx mcg (2,000 unit) capsule albuterol sulfate 90 mcg/actuation 2 puff inhalation Q 4-6H PRN 09/06/24 09/16/24 History aerosol inhaler Shortness Of Breath cholecalciferol (vitamin D3) 1,250 1,250 mcg PO WEEKLY 09/06/24 09/16/24 History mcg (50,000 unit) capsule ferrous sulfate 325 mg (65 mg 325 mg PO DAILY 09/06/24 09/16/24 History iron) tablet (FeroSul) aspirin 81 mg tablet,delayed 81 mg PO DAILY 30 days #3 0 tabs 09/09/24 09/16/24 Rx release doxycycline hyclate 100 mg capsule 100 mg PO BID #20 c aps 09/09/24 09/16/24 Rx empagliflozin 10 mg tablet 10 mg PO DAILY 30 days #30 tabs 09/09/24 09/16/24 Rx (Jardiance) furosemide 80 mg tablet 80 mg PO BIDL 30 days #60 ta bs 09/09/24 09/16/24 Rx metoprolol succinate 25 mg 25 mg PO DAILY 30 days #30 tabs 09/09/24 09/16/24 Rx tablet,extended release 24 hr pantoprazole 40 mg tablet,delayed 40 mg PO HS 30 days #30 tabs 09/09/24 09/16/24 Rx release spironolactone 25 mg tablet 50 mg (2 x 25 mg) PO DAILY 30 days 09/09/24 09/16/24 Rx #60 tabs wound care - b/l legs 99 unit .Route DAILY 4 weeks 09/09/24 09/16/24 Rx metformin 500 mg tablet 500 mg PO BID #60 tabs 09/1509/16/24 Rx tirzepatide 2.5 mg/0.5 mL 2.5 mg (0.5 mL) SQ WEEKLY #2 mL 09/15/24 09/16/24 Rx subcutaneous pen injector (Mounjaro) sacubitril 97 mg-valsartan 103 mg 1 tab PO BID #60 tab s 09/16/24 09/16/24 Rx tablet (Entresto) New Prescriptions to Start Prescriptions: aspirin Ernesto,Irfan doxycycline hyclate Ernesto,Irfan empagliflozin [Jardiance] Ernesto,Irfan furosemide Ernesto,Irfan metoprolol succinate Ernesto,Irfan pantoprazole Ernesto,Irfan spironolactone Ernesto,Irfan Wound Care - B/L Legs Ernesto,Irfan Allergies Allergy/AdvReac Type Severity Reaction Status Date / Time codeine (CODEINE) Allergy Mild I-RASH Verified 09/16/24 13:31 Discharge Plan Disposition Patient Disposition: Home, Self-Care Condition: Good Discharge Order Discharge Orders: Discharge Order (Routine); Ordered 09/09/24 Ordered By: Srinath Orozco Follow up Plan Follow up with: Abena Méndez APRN [Nurse Practitioner, Cardiology] - 09/16/24 9:45 am Gorge Wade PT [Physical Therapist, Rehab Therapy] - Enter time for follow up Referral Note: Wound Care Rosa Vanegas MD [Physician, Pulmonology] - 10/07/24 1:00 pm Prescriptions/Medication Reconciliation: New aspirin 81 mg Tablet,Delayed Release (Dr/Ec) 81 mg PO DAILY 30 Days Qty: 30 0RF spironolactone 25 mg Tablet 50 mg PO DAILY 30 Days Qty: 60 0RF furosemide 80 mg Tablet 80 mg PO BIDL 30 Days Qty: 60 0RF pantoprazole 40 mg Tablet,Delayed Release (Dr/Ec) 40 mg PO HS 30 Days Qty: 30 0RF metoprolol succinate 25 mg Tablet Extended Release 24 Hr 25 mg PO DAILY 30 Days Qty: 30 0RF Jardiance 10 mg Tablet 10 mg PO DAILY 30 Days Qty: 30 0RF doxycycline hyclate 100 mg capsule 100 mg PO BID Qty: 20 0RF wound care - b/l legs 99 unit .Route DAILY 28 Days 0RF Rx Instructions: .Route Continued metformin 500 mg tablet 500 mg PO BID Qty: 60 2RF Mounjaro 2.5 mg/0.5 mL pen injector 2.5 mg SQ WEEKLY Qty: 2 2RF Rx Instructions: for 4 weeks Entresto 97-103 mg tablet 1 tab PO BID Qty: 60 3RF cholecalciferol (vitamin D3) 50 mcg (2,000 unit) capsule 50 mcg PO DAILY Qty: 30 4RF ferrous sulfate [FeroSul] 325 mg (65 mg iron) tablet 325 mg PO DAILY albuterol sulfate 90 mcg/actuation HFA aerosol inhaler 2 puff inhalation Q4-6H PRN (Reason: Shortness Of Breath) cholecalciferol (vitamin D3) 1,250 mcg (50,000 unit) capsule 1,250 mcg PO WEEKLY Discontinued lisinopril 10 mg tablet 10 mg PO DAILY Qty: 30 2RF hydrochlorothiazide 25 mg tablet 25 mg PO DAILY Qty: 30 2RF Other Ambulatory Orders: Home Medical Equipment (Routine) Location: None Selected Ordered By: Srinath Orozco Home Medical Equipment (Routine) Location: None Selected Ordered By: Srinath Orozco Problem Reconciliation Problems Reviewed?: Yes Patient Discharge Instructions ACTIVITY: Ambulate as tolerated DIET: continue same diet Patient Instructions: Heart-Healthy Diet, Carbohydrate-Counting Diet, DI for Pulmonary Embolism, DI for Cardiac Catheterization, DI for Surgical Site Infection, DI for Sepsis -- Adult, DI for Moderate Sedation, Catheter-Associated Urinary Tract Infection, Stop Light Pneumonia, Using Nutrition Labels: Carbohydrate Diet, Stop Light Heart Failure, Stop Light Infection Print Language: Frisian Providers Primary Care Provider: Jt De La Garza Admit Provider: Jt Goodman Attending Provider: Jt Goodman
== END 2024-09-09 15:13 | disposition home or self-care (01) | DRG 871 ==
LOC: ER 21:35 → ICU 09-06 00:12 → 2ND 09-07 09:56
PROVIDERS: Internal Medicine; Internal Medicine Adolescent Medicine; Internal Medicine Pulmonary Disease; Nurse Practitioner Family; Admitting Provider Student in an Organized Health Care Education/Training Program; Emergency Provider Emergency Medicine; PCP Internal Medicine; Visit Provider Student in an Organized Health Care Education/Training Program
PROC: 4A023N7 Measurement of Cardiac Sampling and Pressure, Left Heart, Percutaneous Approach (ICD-10-PCS; CPT 93452; principal; 2024-09-08 13:00)
DX: A41.89 Other specified sepsis (principal); I21.A1 Myocardial infarction type 2; I26.99 Other pulmonary embolism without acute cor pulmonale; J96.21 Acute and chronic respiratory failure with hypoxia; I50.23 Acute on chronic systolic (congestive) heart failure; J18.9 Pneumonia, unspecified organism; E87.1 Hypo-osmolality and hyponatremia; Z68.41 Body mass index [BMI] 40.0-44.9, adult; J44.0 Chronic obstructive pulmonary disease with (acute) lower respiratory infection; I42.0 Dilated cardiomyopathy; L03.116 Cellulitis of left lower limb; L03.115 Cellulitis of right lower limb; I11.0 Hypertensive heart disease with heart failure; E66.813 Obesity, class 3; E87.6 Hypokalemia; D50.9 Iron deficiency anemia, unspecified; K76.1 Chronic passive congestion of liver; E11.51 Type 2 diabetes mellitus with diabetic peripheral angiopathy without gangrene; F17.210 Nicotine dependence, cigarettes, uncomplicated; Z88.5 Allergy status to narcotic agent; Z79.899 Other long term (current) drug therapy
CPT/HCPCS: 36415; 51702; 71045; 71275; 80048; 80053; 80061; 80307; 81001; 82607; 82728; 82746; 82803; 82962; 83036; 83540; 83550; 83605; 83735; 83880; 84145; 84439; 84443; 84484; 84702; 85007; 85025; 86140; 87040; 87070; 87077; 87081; 87154; 87186; 87205; 87633; 93005; 93306; 93308; 93970; 94640; 94761; 97163; 97166; 97535; 99152; C1769; J0456; J0696; J1200; J1644; J1650; J1756; J1885; J1938; J2003; J2250; J2260; J2470; J2543; J2919; J3010; J3475; J3480; J7040; J7050; J7120; Q9957; Q9967

== ENCOUNTER 2024-09-30 13:05 | Outpatient (CLI) | payer OTHER, SELFPAY ==
--- OUTSIDE RECORDS SUMMARY | 2024-05-22 17:30 | XMS_ITS ---
Author Organization [facility] Address [address] [place] [address] Care Team Providers Care Spa Host Name Role Phone Christi Stevens Primary Care Provider CHRISTI STEVENS Unavailable Unavaila ble Migration, Provider Unavailable Unavailable Allergies Allergen (clinical drug ingredient) Drug/Non Drug Allergy documented on EMR Reaction Allergy Type Onset Date Status codeine Codeine hives Drug Allergy Active REASON FOR VISIT [facility] Conversion Encounter Medications Medication SIG (Take, Route, [address] [place], [place] [address] 05/22/2024 Provider Migration Plan Of Treatment No Information Progress Notes * Lian PAINTINGDOB: 3 (44 yo F)Acc No.[id number]:05/22/2024 Patient: Lian STRONG Provider: Rodo amyCharlton :1980 A ge:44 Y S ex:Female Date:05/22/2024 Address:[address] [place] [address], [place], [id number] Pcp:Christi Stevens Subjective: * Chief Complaints: * 1 [...] Electronic signature of Perry moss Migration on 09/30/2024 at 01:09 PM EDT Sign off status: Pending * Provider: Rodo Reinoso Date: 0 05/22/2024 Generated for Thu burnett/Naveen/Brian on: 09/30/2024 01:09 PM EDT
--- OUTSIDE RECORDS SUMMARY | 2024-09-30 13:10 | XMS_ITS | Clinical Summary ---
[facility] Organization [facility] Address [address] [place] [address] Care Team Providers Care Regional Rehabilitation Director Name Role Phone Provider, No Known Primary [...] age to complete this topic Care Teams Regional Rehabilitation Director Relationship Specialty Start Date End Date Provider, [place] [address] PCP - General 08/06/19
--- OUTSIDE RECORDS SUMMARY | 2024-09-30 13:10 | XMS_ITS | Patient Health Record ---
Author Organization [facility] Address [address] [place] [address] Care Team Providers Care Hotel Administrative Assistant Name Role Phone Christi Stevens Primary Care [...] W/U Status Risk Notes Problem Tobacco use (166658834) Tobacco use (Z72.0) Active confirmed Problem Morbid obesity (468663652) Morbid obesity (E66.01) Active confirmed Problem Lymphedema (32462326) Lymphedema (I89.0) Active confirmed Problem Iron deficiency anemia (05934644) Iron deficiency anemia, unspecified iron deficiency anemia type (D50.9) Active confirmed Problem Body mass index 40+ - morbidly obese (259160816) BMI 60.0-69.9, adult (Z68.44) Active confirmed Problem Chronic sinusitis (67027066) Purulent postnasal drainage (J32.9) Active confirmed Encounters Encounter Location Date Provider Diagnosis [facility] [address] [place] [address] 05/22/2024 Provider Migration Plan Of Treatment Pending Test Test Name Order Date Physical Therapy : Lymphedema 03/25/2023 Physical Therapy : Lymphedema 08/27/2022 Insurance Providers Payer Name Payer Address Payer Phone Subscriber Number Group Number Insured Name Patient Relationship to Insured Coverage Start Date Coverage End Date AET[employer] [facility] [address] [address] [place] [address] [id number] Lian Painting Self - patient is the insured Medical (General) History Medical History History ICD Code Obesity CATHRYN - not treated Tobacco use Surgical History Surgery Date(Month/Year) tonsillectomy/ear tubes 1988 Hospitalization History Reason Date(Month/Year) above
== END 2024-09-30 23:59 | disposition home or self-care (01) ==
LOC: DIETICIAN 13:06
PROVIDERS: PCP Nurse Practitioner Family; Visit Provider Nurse Practitioner Family
DX: E11.9 Type 2 diabetes mellitus without complications (principal); Z68.43 Body mass index [BMI] 50.0-59.9, adult
CPT/HCPCS: 97802

== ENCOUNTER 2024-10-19 09:08 | Outpatient (CLI) | payer OTHER, SELFPAY ==
--- OUTSIDE RECORDS SUMMARY | 2024-05-22 17:30 | XMS_ITS ---
Author Organization [facility] Address [address] [place] [address] Care Team Providers Care Aviculturist Name Role Phone Christi Stevens Primary Care Provider [phone] CHRISTI STEVENS Unavailable Unavaila ble Migration, Provider Unavailable Unavailable Allergies Allergen (clinical drug ingredient) Drug/Non Drug Allergy documented on EMR Reaction Allergy Type Onset Date Status codeine Codeine hives Drug Allergy Active REASON FOR VISIT [facility] To [facility] Conversion Encounter Medications Medication SIG [address] [place], [place] [address] 05/22/2024 Provider Migration Plan Of Treatment No Information Progress Notes * Lian PAINTINGDOB: 3 (44 yo F)Acc No.[id number]:05/22/2024 Patient: Lian STRONG Provider: Rodo Reinoso :1980 A ge:44 Y S ex:Female Date:05/22/2024 Address:[address] [place] [address], [place], [id number] Pcp:Christi Stevens Subjective: * Chief Complaints: * [...] Electronic signature of Perry moss Migration on 10/19/2024 at 09:31 AM EDT Sign off status: Pending * Provider: Rodo Reinoso Date: 0 05/22/2024 Generated for Thu burnett/Naveen/Brian on: 10/19/2024 09:31 AM EDT
[2024-10-08 07:38] VITALS: BMI 54.1
[2024-10-19 09:10] VITALS: BMI 54.1
--- OUTSIDE RECORDS SUMMARY | 2024-10-19 09:31 | XMS_ITS | Clinical Summary ---
[facility] Address [address] [place] [address] Care Team Providers Care Social Insurance Administrator Name Role Phone Provider, No Known Primary [...] age to complete this topic Care Teams Social Insurance Administrator Relationship Specialty Start Date End Date Provider, [place] [address] PCP - General 08/06/19
--- OUTSIDE RECORDS SUMMARY | 2024-10-19 09:31 | XMS_ITS | Patient Health Record ---
Author Organization [facility] Address [address] [place] [address] Care Team Providers Care Cleaner Wall Name Role Phone Christi Stevens Primary Care Provider [phone] CHRISTI STEVENS Unavailable Unavaila ble Migration, Provider [...] W/U Status Risk Notes Problem Tobacco use (885060313) Tobacco use (Z72.0) Active confirmed Problem Morbid obesity (730451658) Morbid obesity (E66.01) Active confirmed Problem Lymphedema (14937200) Lymphedema (I89.0) Active confirmed Problem Iron deficiency anemia (79568662) Iron deficiency anemia, unspecified iron deficiency anemia type (D50.9) Active confirmed Problem Body mass index 40+ - morbidly obese (425043376) BMI 60.0-69.9, adult (Z68.44) Active confirmed Problem Chronic sinusitis (05569512) Purulent postnasal drainage (J32.9) Active confirmed Encounters Encounter Location Date Provider Diagnosis [facility] [address] [place] [address] 05/22/2024 Provider Migration Plan Of Treatment Pending Test Test Name Order Date Physical Therapy : Lymphedema 03/25/2023 Physical Therapy : Lymphedema 08/27/2022 Insurance Providers Payer Name Payer Address Payer Phone Subscriber Number Group Number Insured Name Patient Relationship to Insured Coverage Start Date Coverage End Date AETNA [facility] [address] [address] [place] [address] [id number] Lian Painting Self - patient is the insured Medical (General) History Medical History History ICD Code Obesity CATHRYN - not treated Tobacco use Surgical History Surgery Date(Month/Year) tonsillectomy/ear tubes 1988 Hospitalization History Reason Date(Month/Year) above
[2024-10-19 09:39] LABS: Hematocrit 36.0 % (37.0-47.0); Hemoglobin 10.7 g/dL (12.2-16.2); Immature Granulocytes % 0.3 %; Mean Corpuscular HGB Conc 29.7 g/dL (31.8-35.4); Mean Corpuscular Hemoglobin 22.3 pg (27.0-31.2); Mean Corpuscular Volume 75.0 fl (81-99); Nucleated Red Blood Cells % 0 %; Platelet Count 450 K/mm3 (142-424); Red Blood Count 4.80 M/mm3 (4.20-5.40); Red Cell Distribution Width-SD 66.3 fL; White Blood Count 7.6 K/mm3 (4.8-10.8)
[2024-10-19 09:48] LABS: Chloride 106 mmol/L (98-107)
[2024-10-19 09:49] LABS: Potassium 3.9 mmoL/L (3.5-5.1); Sodium 138 mmol/L (136-145)
[2024-10-19 09:51] LABS: Blood Urea Nitrogen 12 mg/dl (7-17)
[2024-10-19 09:52] LABS: Anion Gap 8.9 mEq/L (5-15); Calcium 8.8 mg/dl (8.4-10.2); Carbon Dioxide 27 mmol/L (22.0-30.0); Creatinine Clearance Estimated 106 mL/min (50-200); Creatinine,Serum 0.70 mg/dl (0.52-1.04); Estimated Glomerular Filt Rate 92 ml/min (>60); GFR (African American) 111 ML/MIN (>60); Glucose 103 mg/dl (74-100)
[2024-10-19 09:59] LABS: INR 1.01 (0.9-1.1); Prothrombin Time 11.2 seconds (10.1-12.5)
[2024-10-19 11:22] LABS: HCG Qualitative, Serum Negative (Negative)
== END 2024-10-19 23:59 | disposition home or self-care (01) ==
PROVIDERS: PCP Nurse Practitioner Family; Visit Provider Internal Medicine
DX: Z01.812 Encounter for preprocedural laboratory examination (principal)
CPT/HCPCS: 80048; 84703; 85025; 85610

== ENCOUNTER 2024-10-26 09:59 | Day surgery (SDC) | payer OTHER, SELFPAY ==
--- NOTE | 2024-10-08 09:17 | SUR.PREOP ---
Pt no-show for PAT appointment. VM left requesting return call. Office notified.
--- NOTE | 2024-10-08 12:50 | SUR.PREOP ---
Pt unable to make PAT appt. Spoke w/ Ama in cardiology office, determined PAT and NICHOLAS to be rescheduled. Pt notified and verbalized understanding. Scheduling notified, pt transferred to scheduling to make arrangements.
[2024-10-19 11:14] VITALS: BMI 54.1
[2024-10-26 10:15] VITALS: BP 151/92; PULSE 90; RESP 16; TEMP 36.2; O2SAT 99
[2024-10-26] MEDS: LACTATED RINGERS 1000ML 1,000 ML 50 ML IV (10:22)
[2024-10-26 10:31] LABS: POC Glucose,Bedside 97 gm/dL (70-110)
--- NOTE | 2024-10-26 11:00 | CA_ITS ---
APPROVED REPORT EXAM: Comprehensive 2D, Doppler, and color-flow Echocardiogram Processing Specialist: YUSUF Manning, JARON Ht: 5 ft 8 in Wt: 358lbs BSA: 2.62 BP: 134/76 mmHg Indications: , subaortic membrane? Procedure After obtaining informed consent, patient underwent transesophageal echo in the [facility]. Type of Sedation : MAC Sedation was administered by Jordi Oconnor C.R.N.A. Sedation start time: 11:40 Case end Time: 11:51 Transesophageal probe was inserted and advanced into esophagus without difficulty by Dr. Wilman Fisher. The NICHOLAS was performed without complications. Throughout the procedure, the blood pressure, pulse oximetry, cardiac rhythm, and rate were monitored. The patient tolerated the procedure without adverse effects. Recovery from conscious sedation was uneventful and vital signs were stable. Left Ventricle The left ventricle is normal size. The left ventricular systolic function is moderately reduced. There is normal left ventricular wall thickness. There is moderate global hypokinesis. LVEF is 35-40%. Right Ventricle Right ventricle is mildly dilated. Right ventricle is mildly hypokinetic. Atria The left atrium is mildly dilated. No thrombus is visualized in the left atrium or appendage. The right atrium is mildly dilated. Interatrial septum is intact without evidence of ASD or PFO. Aortic Valve The aortic valve is normal in structure. The aortic valve is trileaflet. No evidence of subaortic membrane. There is no aortic valvular stenosis. ALYCIA by 2D planimetry is 3.5 cm2. Peak velocity is 1.5 m/s. Mean AV gradient is 5 mmHg. Max AV gradient is 8 mmHg. Mild aortic regurgitation. Mitral Valve The mitral valve is normal in structure. No evidence of mitral valve stenosis. Mild mitral regurgitation. Tricuspid Valve Tricuspid valve is grossly normal in structure and function. Mild to moderate tricuspid regurgitation. RVSP is 45 mmHg + RA pressure. Pulmonic Valve The pulmonary valve is normal in structure. Trace pulmonic regurgitation. Great Vessels The aortic root is normal in size. The ascending aorta is normal in size. Pericardium There is no pericardial effusion. Other Information Study Quality: Fair Conclusion Moderate reduction in LV systolic function (LVEF 35-40%). Mild RV dilation with mild reduction in RV function. Biatrial dilation. No evidence of or subaortic membrane on NICHOLAS. Mild AI. Mild MR. Mild to moderate TR. Elevated RVSP 45 mmHg + RA pressure. Electronically signed by : Janay Fisher MD 10/26/2024 13:19:55
--- NOTE | 2024-10-26 11:27 | P.PNANES_ITS ---
[facility] Disclaimer: The information contained in this section may have been updated after the patient was seen, as this information can be updated by other users. Medical History Diabetes Witnessed episode of apnea History of sleep apnea Asthma Abnormal echocardiogram Pulmonary embolism Elevated liver enzymes Elevated white blood cell count Pneumonia Abnormal cardiovascular stress test Non-STEMI (non-ST elevated myocardial infarction) Pulmonary edema Cardiomyopathy Acute on chronic HFrEF (heart failure with reduced ejection fraction) Peripheral vascular disease Abscess Sinusitis Erythema nodosum Bronchitis Cellulitis Tennis elbow Nausea and vomiting Acute bronchitis Gastroenteritis Cardiomegaly Restless sleeper HTN (hypertension) History of asthma Edema Tobacco dependence syndrome Dyspnea Surgical History History of placement of ear tubes History of 2 sections History of tonsillectomy and adenoidectomy Family History Other Family history of cancer Social History Smoking Status: Former smoker how long ago did patient quit smoking: one month second hand exposure: No alcohol intake: former substance use type: denies use current occupational status: disabled Travel in the last 8 weeks?: None housing: house caffeine: No Have you lived/traveled outside US in past 30 days?: No Contact w/someone who lives/traveled outside US past 30 days?: No Exposure to someone with infectious disease in past 14 days?: No Do you have a fever (greater than 100.4 F or 38 C)?: No Have you tested positive for COVID-19?: No Exposed to someone with COVID-19 in past 14 days?: No Do you have a sore throat?: No Do you have a cough?: No Do you have any weakness?: No Do you have any diarrhea?: No Are you experiencing any unusual bleeding?: No Do you have any muscle aches/pain?: No Do you have any abdominal pain?: No Are you experiencing loss of taste or smell?: No [facility] Anesthesia Checklist Patient Identification Patient Identification: Verbal (Name & ) Structural Data Admitted From: Home Planned Operative Procedure/s: nicolle Consent for Planned Operative Procedure(s) Verified: Yes Additional verifications Anesthesia Reactions: No Hx Blood Transfusions: No Blood Transfusion Reaction: No Airway Assessment Mallampati Score:: Class II C-Spine Mobility Assessed: Yes TMJ Mobility Assessed: Yes Dentition: Edentulous Neurological Assessment Level of Consciousness: Awake, Alert and Appropriate Anesthesia Plan Anesthesia Risk discussed: Yes Anesthesia Plan: Verified ASA Class: III Anesthesia Type: MAC
[2024-10-26 11:43] VITALS: BP 146/88; PULSE 91; RESP 16; TEMP 36.4; O2SAT 98
[2024-10-26 11:58] VITALS: BP 143/74; PULSE 86; RESP 18; O2SAT 98
[2024-10-26 12:10] VITALS: BP 138/69; PULSE 92; RESP 18; O2SAT 98
== END 2024-10-26 12:15 | disposition home or self-care (01) ==
PROVIDERS: PCP Nurse Practitioner Family; Visit Provider Internal Medicine
PROC: (CPT 93312; principal; 2024-10-26 11:00)
DX: I35.0 Nonrheumatic aortic (valve) stenosis (principal); R93.1 Abnormal findings on diagnostic imaging of heart and coronary circulation; R94.31 Abnormal electrocardiogram [ECG] [EKG]; R94.39 Abnormal result of other cardiovascular function study; E11.9 Type 2 diabetes mellitus without complications; I11.0 Hypertensive heart disease with heart failure; I50.20 Unspecified systolic (congestive) heart failure; J45.909 Unspecified asthma, uncomplicated; I73.9 Peripheral vascular disease, unspecified; I25.2 Old myocardial infarction; Z86.711 Personal history of pulmonary embolism; Z87.891 Personal history of nicotine dependence; Z79.82 Long term (current) use of aspirin; Z79.84 Long term (current) use of oral hypoglycemic drugs; Z79.01 Long term (current) use of anticoagulants; Z79.899 Other long term (current) drug therapy; Z88.5 Allergy status to narcotic agent
CPT/HCPCS: 82962; 93270; 93312; 93319; J2003; J2704; J7120